=== PATIENT | female | born 2000 | race Caucasian/White ===

== ENCOUNTER → 2024-05-06 | Outpatient (CLI) | payer BC, SELFPAY ==
[2024-05-06 11:09] LABS: Absolute Lymphocyte Count 1.36 X10^3/uL (0.83-4.51); Absolute Neutrophil Count 3.8 X10^3/uL (2.0-7.7); Basophil# 0.05 X10^3/uL; Basophil% 0.9 % (0-1); Eosinophil# 0.05 X10^3/uL; Eosinophils% 0.9 % (0-5); Hematocrit 39.1 % (37-47); Hemoglobin 13.2 g/dL (12.0-15.0); Lymphocyte # 1.36 X10^3/ul (0.83-4.51); Lymphocyte % 23.7 % (19-41); Mean Corp Hgb Conc 33.8 g/dL (32-36); Mean Corpuscular Hgb 29.9 pg (27.0-32.0); Mean Corpuscular Volume 88.7 fL (81-99); Mean Platelet Vol. 9.9 fl (6.2-12.0); Monocyte# 0.51 X10^3/uL; Monocyte% 8.9 % (0-10); NRBC Flagged by Analyzer 0 % (0-5); Neutrophil # 3.75 X10^3/uL (2.7-7.7); Neutrophil % 65.3 % (47-70); Platelet Count 239 K/mm3 (150-450); RBC Distribution Width CV 11.6 % (11.6-14.6); RBC Distribution Width SD 37.7 fl (35.1-43.9); Red Blood Count 4.41 M/mm3 (4.2-5.4); White Blood Count 5.7 K/mm3 (4.4-11.0)
[2024-05-06 12:00] LABS: HIV - WCH Non-Reactive (Nonreactive); Hepatitis B Surface Antigen Non-Reactive (Nonreactive); Hepatitis C Antibody Non-Reactive (Nonreactive); Rubella IgG Reactive (Nonreactive); Syphilis Antibodies Non-reactive
[2024-05-09 21:06] LABS: Chlamydia By Nucleic Acid AMP Negative (Negative); Gonococcus By Nucleic Acid AMP Negative (Negative)
== END | disposition home or self-care (01) ==
PROVIDERS: Referring Provider Registered Nurse; Visit Provider Registered Nurse
DX: O09.90 Supervision of high risk pregnancy, unspecified, unspecified trimester (principal); Z3A.00 Weeks of gestation of pregnancy not specified
CPT/HCPCS: 36415; 85025; 86703; 86762; 86780; 86787; 86803; 86850; 86900; 86901; 87086; 87340; 87491; 87591

== ENCOUNTER → 2024-09-12 | Outpatient (CLI) | payer BC, SELFPAY | END | disposition home or self-care (01) | LOC: LABSPEC 08:21 | PROVIDERS: Visit Provider Physician Assistant Medical | DX: R30.0 Dysuria (principal) | CPT/HCPCS: 87086 ==

== ENCOUNTER → 2024-09-16 | Outpatient (CLI) | payer BC, SELFPAY | END | disposition home or self-care (01) | LOC: LABSPEC 11:51 | PROVIDERS: Referring Provider Obstetrics & Gynecology; Visit Provider Obstetrics & Gynecology | DX: N30.01 Acute cystitis with hematuria (principal) | CPT/HCPCS: 87086 ==

== ENCOUNTER → 2024-09-28 | Outpatient (CLI) | payer BC, SELFPAY ==
[2024-09-28 12:08] LABS: Absolute Lymphocyte Count 1.38 X10^3/uL (0.83-4.51); Absolute Neutrophil Count 5.9 X10^3/uL (2.0-7.7); Basophil# 0.04 X10^3/uL; Basophil% 0.5 % (0-1); Eosinophil# 0.05 X10^3/uL; Eosinophils% 0.6 % (0-5); Hematocrit 36.4 % (37-47); Hemoglobin 12.4 g/dL (12.0-15.0); Lymphocyte # 1.38 X10^3/ul (0.83-4.51); Lymphocyte % 17.4 % (19-41); Mean Corp Hgb Conc 34.1 g/dL (32-36); Mean Corpuscular Hgb 30.8 pg (27.0-32.0); Mean Corpuscular Volume 90.3 fL (81-99); Mean Platelet Vol. 9.7 fl (6.2-12.0); Monocyte# 0.52 X10^3/uL; Monocyte% 6.5 % (0-10); NRBC Flagged by Analyzer 0 % (0-5); Neutrophil # 5.88 X10^3/uL (2.7-7.7); Neutrophil % 74.1 % (47-70); Platelet Count 208 K/mm3 (150-450); RBC Distribution Width CV 11.9 % (11.6-14.6); Red Blood Count 4.03 M/mm3 (4.2-5.4); White Blood Count 7.9 K/mm3 (4.4-11.0)
[2024-09-28 12:49] LABS: Glucose Challenge Gest 1H 50g 86 mg/dL (70-140); HIV Nonreactive (Nonreactive); Syphilis Antibodies Nonreactive (Nonreactive)
== END | disposition home or self-care (01) ==
PROVIDERS: Referring Provider Advanced Practice Midwife; Visit Provider Advanced Practice Midwife
DX: O09.90 Supervision of high risk pregnancy, unspecified, unspecified trimester (principal); Z13.1 Encounter for screening for diabetes mellitus; Z3A.24 24 weeks gestation of pregnancy
CPT/HCPCS: 36415; 82950; 85025; 86703; 86780

== ENCOUNTER 2024-11-01 10:05 | Outpatient (CLI) | payer BC, SELFPAY ==
[2024-11-01 10:19] VITALS: BP 108/73; PULSE 53; RESP 12; TEMP 36.7; O2SAT 100
[2024-11-01 10:58] VITALS: BMI 23.0
--- NOTE | 2024-11-01 19:06 | OB.TRI.HP_ITS ---
HPI - General General Date of Admission: 11/01/24 HPI Narrative GURPREET SERNA, is a 24 y/o @33 weeks 4 days F who presents to L&D with decreased movement. No loss of fluid or vaginal bleeding .She states that since being here she is starting to feel baby move. Maternal Data Information SHAREE Calculator Estimated Delivery Date Method Current WG Current Estimate 12/16/24 LMP (Certain) 33w 4d PFSH PFSH Home Medications ?Medication ?Instructions ?Recorded ?Last Taken ?Type multivit-min no.71-iron fum 28 cap PO 04/29/24 5 History mg-folate no.1 1 mg-dha 300 mg capsule (PNV-Vivian) Allergy/AdvReac Type Severity Reaction Status Date / Time Penicillins Allergy Mild Rash Verified 11/01/24 11:08 Family History Uncle Cancer, Onset Age: 30 Maternal-Liver Grandmother Heart disease, Onset Age: 60 Paternal Grandfather Diabetes, Onset Age: 50 Maternal Social History adopted: No household members: spouse current occupational status: employed 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 current occupational exposures/hazards: No pets and animals: Yes pets and animals: dog(s) history of recent travel: No sexually active: Yes Smoking Status: Never smoker alcohol intake: current alcohol intake frequency: a few times a month details: Not while substance use type: does not use well-balanced diet: about half the time caffeine: Yes Type: coffee Number of servings: 1 eating out: rarely or never during the past year weight has: remained stable what type of physical activity do you participate in: running frequency: daily duration: 30-45 minutes/day sandip/restorationism: Jewish seatbelt use: always do you feel safe at home: Yes additional social history: [facility]- [facility] at [facility] History 1 Elective abortions Hx Para 0 Spontaneous abortions Hx # Term Pregnancies Ectopic pregnancies Hx # Pregnancies Multiple births # of living children Visit Details Expected Delivery Route/Plan Labor Preferences- CB/BF classes: encourage labor support person: Bora labor intervention preferences: [] pain management options preferred: epidural cut cord/dad catch: no : yes PP control planned: discussed discussed possible routes of delivery and associated risks: [] special requests: [] Plans Covid status: [] Flu vaccine: [] Tdap vaccine: [] Rhogam: NA LARC form signed: yes Problem list reviewed and updated with the most current plan of care details and appropriate orders placed. Relevant counseling for the gestational age provided. Continue routine care and follow up unless otherwise noted in visit notes/problem list details OB Flowsheet Initial Weight: 116 lb Date -?-?-?-?-?-?-?-?-?-?-?-?- EGA Weight BP Urine Prot -?-?-?-?-?-?-?-?-?-?-?-?- Glucose FHR FuHt Pres Dilation -?-?-?-?-?-?-?-?-?-?-?-?- Effaced St Visit Note 05/06/24 -?-?-?-?-?-?-?-?-?-?-?-?- 8w 0d 116 lb 6 oz (+6 oz) 132/88 -?-?-?-?-?-?-?-?-?-?-?-?- 171 -?-?-?-?-?-?-?-?-?-?-?-?- LC- 1.67. LC- CRL 1.67 con with LMP. [facility]. LC- CRL 1.[address] [facility] genetic screening today. recommended 1mg folic acid for family hx of cleft lip 06/07/24 -?-?-?-?-?-?-?-?-?-?-?-?- 12w 4d 119 lb 6 oz (+3 lb 6 oz) 122/78 Negative -?-?-?-?-?-?-?-?-?-?-?-?- Negative 175 -?-?-?-?-?-?-?-?-?-?-?-?- JV- no cramping or bleeding c/o constipation. we discussed remedies. anatomy scan ordered with [facility]. 07/07/24 -?-?-?-?-?-?-?-?-?-?-?--?- 16w 6d 126 lb 2 oz (+10 lb 2 oz) 108/72 Negative -?-?-?-?-?-?-?-?-?-?-?-?- Negative 145 -?-?-?-?-?-?-?-?-?-?-?-?- KW- no vb/crampi ng. anatomy US on 07/19. AFP declined. 08/04/24 -?-?-?-?-?-?-?-?-?-?-?-?- 20w 6d 128 lb 2 oz (+12 lb 2 oz) 113/70 Negative -?-?-?-?-?-?-?-?-?-?-?-?- Negative 135 -?-?-?-?-?-?-?-?-?-?-?-?- JV- no complaint s today. 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 08/31/24 -?-?-?-?-?-?-?-?-?-?-?-?- 24w 5d 130 lb 4 oz (+14 lb 4 oz) 109/70 Negative -?-?-?-?-?-?-?-?-?-?-?-?- Negative 135 24 -?-?-?-?-?-?-?-?-?-?-?-?- KW- no vb/lof/ct x. good fm. glucose next visit. has US scheduled. 09/16/24 -?-?-?-?-?-?-?-?-?-?-?-?- 27w 0d 127 lb 8 oz (+11 lb 8 oz) 107/72 Trace -?-?-?-?-?-?-?-?-?-?-?-?- Negative 140 27 -?-?-?-?-?-?-?-?-?-?-?-?- SM- no vb lof go od fm no regualr ctx SM- no vb lof good fm no reg ualr ctx having dysuria urgency frequency little improvement with macrobid and culture negative, repeat testing today 09/28/24 -?-?-?-?-?-?-?-?-?--?-?-?- 28w 5d 128 lb 8 oz (+12 lb 8 oz) 106/70 Negative -?-?-?-?-?-?-?-?-?-?-?-?- Negative 143 28 -?-?-?-?-?-?-?-?-?-?-?-?- MH-No VB. LOF. G ood FM. Reviewed MFM US for duplicate renal system on left. Rpt US 4 wk. 28 wk labs pending. Larc. Undecided on tdap 10/13/24 -?-?-?-?-?-?-?-?-?-?-?-?- 30w 6d 126 lb 2 oz (+10 lb 2 oz) 111/72 Negative -?-?-?-?-?-?-?-?-?-?-?-?- Negative 135 30 -?-?-?-?-?-?-?-?-?-?-?-?- SM- no vb lof go od fm n o regular ctx discussed tdap 10/27/24 -?-?-?-?-?-?-?-?-?-?-?-?- 32w 6d 127 lb 4 oz (+11 lb 4 oz) 115/71 Trace -?-?-?-?-?-?-?-?-?-?-?-?- Negative 135 31 -?-?-?-?-?-?-?-?-?-?-?-?- KW- no vb/lof/ct x. good fm. Has CBE classes scheduled. growth US next week. ROS Constitutional Constitutional: Reports systems reviewed and no addt'l complaints, except as documented Gastrointestinal Gastrointestinal: Denies bloating, constipation, cramping, diarrhea, nausea or vomiting Genitourinary Genitourinary: Reports other Details: Denies vaginal odor, vaginal bleeding, or vaginal discharge ; Denies difficulty urinating or flank pain NST FHR Rate Baby A Baseline: 140 Variability:: Moderate Accelerations:: 15 x 15 Decelerations:: None NST Reactive:: Yes FHR Category:: Category I Assessment & Plan (1) Decreased movement affecting management of mother, antepartum: (2) UTI (urinary tract infection): QUALIFIERS: Urinary tract infection type: acute cystitis Hematuria presence: with hematuria Qualified Code(s): N30.01 - Acute cystitis with hematuria COMMENT: Rpt culture neg (3) Marginal insertion of umbilical cord: (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 Ped urology consult 1mo pp. May need antibiotics if obstructive uropathy occurs. Normal echo (5) Unknown varicella vaccination status: COMMENT: Pt has not had varicella, varicella titer- NON immune (6) Family history of attention deficit hyperactivity disorder (ADHD): COMMENT: Brother (7) Family history of history of [place] de [place] Tourette's syndrome: COMMENT: Both brothers have tourette's (8) Supervision of high-risk : QUALIFIERS: Trimester: third trimester Qualified Code(s): O09.93 - Supervision of high risk , unspecified, third trimester COMMENT: PRR , SHAREE 12/14/24, girl Jailene Bora (9) : QUALIFIERS: Weeks of gestation: 32 weeks Qualified Code(s): Z3A.32 - 32 weeks gestation of COMMENT: elects NIPT with gender, undecided about Carrier testing PLAN: Plan reactive NST patient reassured and is now feeling some movement ok to dc to home. Charges/Coding Multi Select Codes Urinary/Genital Urinary/Genital CPT Codes: 08497-46 non-stress test Interp
== END 2024-11-01 11:10 | disposition home or self-care (01) ==
LOC: WPOUT 10:14 → WP 10:15
PROVIDERS: Referring Provider Obstetrics & Gynecology; Visit Provider Obstetrics & Gynecology
DX: O36.8130 Decreased fetal movements, third trimester, not applicable or unspecified (principal); O43.123 Velamentous insertion of umbilical cord, third trimester; O35.EXX0 Maternal care for other (suspected) fetal abnormality and damage, fetal genitourinary anomalies, not applicable or unspecified; O09.93 Supervision of high risk pregnancy, unspecified, third trimester; Z3A.33 33 weeks gestation of pregnancy
CPT/HCPCS: 59025; 59050; 99212; 99221; G0378; G0463

== ENCOUNTER → 2024-11-21 | Outpatient (CLI) | payer BC, SELFPAY | END | disposition home or self-care (01) | LOC: LABSPEC 11:56 | PROVIDERS: Referring Provider Advanced Practice Midwife; Visit Provider Advanced Practice Midwife | DX: O09.93 Supervision of high risk pregnancy, unspecified, third trimester (principal); Z3A.36 36 weeks gestation of pregnancy | CPT/HCPCS: 87081 ==

== ENCOUNTER 2024-12-02 07:40 | Inpatient (IN) | payer BC, SELFPAY ==
[2024-12-02] VITALS (51 sets, daily range): BP systolic 93–135; BP diastolic 53–82; PULSE 43–123; RESP 16; TEMP 36.7–37.3; O2SAT 81–100; BMI 22.6
--- OUTSIDE RECORDS SUMMARY | 2024-12-02 07:06 | XMS RPT_ITS | CCD ---
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 Melia Elizabeth DO Attending Provider Roselyn Cotto CNM Attending Provider [phone] Nichole Chapin Attending Provider [phone] Padmini Duenas MD Attending Provider [phone] Dr. Padmini Duenas MD Referring Provider [phone] Micheal Ryan Attending Provider [phone] Roselyn Cotto CNM Referring Provider [phone] Dr. Melia Elizabeth DO Attending Provider Care Physician, No Primary Primary Care Provider Unavailable Dr. Meila Elizabeth DO Referring Provider Roselyn Cotto CNM Attending Provider [phone] Dr. Melia Elizabeth DO Other Provider [phone] Care Physician, No Primary Referring Provider Un available LUIS CREWS Attending Unavailable MELIA TOVAR Referring Unavailab le NO PRIMARY CAREMD Primary Care Unavailable MELIA TOVAR Referring Unavailab le MAULIK PELAYO Attending Unavailable NO PRIMARY CARE, Primary Care Unavailable MAULIK PELAYO Attending Unavailable MICHEAL CORTEZ S Referring Unavailable NO PRIMARY CARE, Primary Care Unavailable COREY CORONADO Attending Unavailable MELIA TOVAR Referring Unavailab le NO PRIMARY CARE, Primary Care Unavailable [place] BLACK[place]LL Attending Unavailable MELIA TOVAR Referring Unavailab le NO PRIMARY CARE, Primary Care Unavailable NO PRIMARY CARE, Primary Care Unavailable MICHEAL CORTEZ Attending Unavailable MELIA TOVAR R Referring Unavailab le [place] BL[place] Attending Unavailable NO PRIMARY CARE, Primary Care Unavailable MELIA TOVAR Referring Unavailab le Care Physician, No Primary Primary Care Unava ilable Jelenae Velde, Melia Referring Unavailabl e Vande Velde, Melia Attending Unavailabl e Care Physician, No Primary Primary Care Unava ilable Care Physician, No Primary Referring Unava ilable Padmini Duenas Attending Unavailable Melia Elizabeth Consulting Unavailabl e Care Physician, No Primary Primary Care Unava ilable Juan C Parkinson, Melia Referring Unavailabl e Vande Velde, Melia Attending Unavailabl e Vande Velde, Melia Attending Unavailabl e Care Physician, No Primary Primary Care Unava ilable Care Physician, No Primary Referring Unava ilable Care Physician, No Primary Referring Unava ilable Roselyn Cotto Attending Unavailable Care Physician, No Primary Primary Care Unava ilable Padmini Duenas Attending Unavailable Cass Gee Referring Unavailable Cass Gee Attending Unavailable Nichole Chapin Attending Unavailable Care Physician, No Primary Primary Care Unava ilable Care Physician, No Primary Referring Unava ilable Padmini Duenas Attending Unavailable Padmini Duenas Referring Unavailable Padmini Duenas Attending Unavailable Roselyn Cotto Referring Unavailable Roselyn Cotto Attending Unavailable Cass Gee Attending Unavailable Melia Elizabeth Attending UnavailRoselyn Schneider Attending Unavailable Melia Elizabeth Attending Unavailjeniffer e Liya FOREST RANGER, Micheal Attending Unavailable Roselyn Cotto Attending Unavailable Roselyn Cotto Attending Unavailable Nichole Chapin Attending Unavailable Padmini Duenas Attending Unavailable Care Physician, No Primary Referring Unava ilable Care Physician, No Primary Primary Care Unava ilable Liya FOREST RANGER, Micheal Attending Unavailable Care Physician, No Primary Primary Care Unava ilable Roselyn Cotto Referring Unavailable Roselyn Cotto Attending Unavailable Allergies Allergy Classification Reported Allergen(s) Allergy Type Date of Onset Reaction(s) Facility (3 sources) Penicillins; Translations: [PENICILLINS] 03-24-2017 [facility]) Penicillins Allergy to substance 09-16-2024 Teresita [facility] (1 source) Penicillins Drug allergy (disorder) 11-28-2024 [facility] Repository Medications Current Medications Medication Drug Class(es) Dates Sig (Normalized) Sig (Original) Mv-Mins 88-Ydvb-Tmpje No.1-Dha (Pnv-[place]) 28-1-300 mg capsule (12 sources) Start: 04-29-2024 Mv-Mins 91-Zvay-Vuslv No.1-Dha (Pnv-[place]) 28-1-300 mg capsule Active NMA PO April 29, 2024 1:00am Completed/Discontinued Medications Medication Drug Class(es) Dates Sig (Normalized) Sig (Original) nitrofurantoin, macrocrystals 25 mg / nitrofurantoin, monohydrate 75 mg oral capsule (12 sources) Nitrofuran Antibacterial Start: 09-10-2024 End: 09-15-2024 take 1 capsule by mouth every twelve hours at mealtime Nitrofurantoin Monohyd/M-Cryst (Macrobid) 100 mg capsule Discontinued 100 mg PO Q12H 10 5 0 September 10, 2024 12:00am September 14, 2024 12:00am September 15, 2024 12:10am must administer with a meal/food Problems Active Problems Problem Classification Problem Date Documented Date Episodic/Chronic Cardiac dysrhythmias (20 sources) Palpitations; Translations: [Bradycardia] Onset: 06-26-2021 Episodic 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 Rpt US 4w MFM confirmed MFM: growt h US Q4wk. Ped urology consult 1mo pp. May need antibiotics if obstructive uropathy occurs. Normal echo Genitourinary symptoms and ill-defined conditions (1 source) Dysuria; Translations: [Dysuria] Onset: 09-15-2024 Episodic Other complications of (20 sources) High risk ; Translations: [Supervision of high risk , unspecified, unspecified trimester] 04-29-2024 Episodic Comment on above: , SHAREE 12/14/24, H usband Bora PRR , SHAREE 5, Bora PRR , SHAREE 5, girl Jailene Bora Other complications of (20 sources) Reduced movement; Translations: [Decreased movements, unspecified trimester, not applicable or unspecified] 11-01-2024 Episodic Other complications of (1 source) Maternal care for other known or suspected poor growth, unspecified trimester, not applicable or unspecified; Translations: [Maternal care for other known or suspected poor growth, unspecified trimester, not applicable or unspecified] Onset: 11-28-2024 Episodic Other complications of (2 sources) Supervision of high risk , unspecified, third trimester; Translations: [Supervision of high risk , unspecified, third trimester] Onset: 11-16-2024 Episodic Other complications of (2 sources) Decreased movements, unspecified trimester, not applicable or unspecified; Translations: [Decreased movements, unspecified trimester, not applicable or unspecified] Onset: 11-16-2024 Episodic Other complications of (1 source) Decreased movements, third trimester, not applicable or unspecified; Translations: [Decreased movements, third trimester, not applicable or unspecified] Onset: 11-16-2024 Episodic Other complications of (1 source) Supervision of high risk , unspecified, unspecified trimester; Translations: [Supervision of high risk , unspecified, unspecified trimester] Onset: 10-05-2024 Episodic Other ear and sense organ disorders (4 sources) Bilateral earache; Translations: [Otalgia, bilateral] 02-01-2024 Episodic Other and delivery including normal (20 sources) ; Translations: [Encounter for supervision of normal , unspecified, unspecified trimester] 09-16-2024 Episodic Comment on above: elects NIPT with gen gabriella, undecided about Carrier testing GBS neg, elects NIPT with gender, undecided about Carrier testing Residual codes; unclassified (20 sources) Varicella status; Translations: [Other specified health status] 04-29-2024 Episodic Comment on above: Pt has not had varic barb, varicella titer Pt has not had varic barb, varicella titer-NON immune Residual codes; unclassified (20 sources) Family history of attention deficit hyperactivity disorder; Translations: [Family history of other mental and behavioral disorders] 04-29-2024 Episodic Comment on above: Brother Residual codes; unclassified (20 sources) Family history of mental disorder; Translations: [Family history of other mental and behavioral disorders] 04-29-2024 Episodic Comment on above: Both brothers have t ourette's Residual codes; unclassified (2 sources) Other specified health status; Translations: [Other specified health status] Onset: 11-16-2024 Episodic Residual codes; unclassified (2 sources) Family history of other mental and behavioral disorders; Translations: [Family history of other mental and behavioral disorders] Onset: 11-16-2024 Episodic Residual codes; unclassified (1 source) 36 weeks gestation of ; Translations: [36 weeks gestation of ] Onset: 11-21-2024 Episodic Residual codes; unclassified (1 source) 32 weeks gestation of ; Translations: [32 weeks gestation of ] Onset: 11-16-2024 Episodic Residual codes; unclassified (1 source) 24 weeks gestation of ; Translations: [24 weeks gestation of ] Onset: 08-31-2024 Episodic Short gestation; low weight; and growth retardation (20 sources) growth restriction; Translations: [ growth retardation, unspecified, unspecified [weight]] 11-07-2024 Episodic Comment on above: wkly BPP/MFM and NST . Growth US Q4w wkly BPP/MFM and NST . Growth US [id number] growth/BPP 11/10 wkly BPP/MFM and NST . Growth US [id number] growth/BPP Umbilical cord complication (20 sources) Marginal insertion of umbilical cord 07-20-2024 Episodic Urinary tract infections (20 sources) Urinary tract infectious disease; Translations: [Urinary tract infection, site not specified] Onset: 11-16-2024 09-10-2024 Episodic Comment on above: Rpt culture neg Past or Other Problems Problem Classification Problem Date Documented Da te Episodic/Chronic Residual codes; unclassified (1 source) 16 weeks gestation of ; Translations: [16 weeks gestation of ] Onset: 07-07-2024 Episodic Unclassified (2 sources) Ear pain - The pain has been occurring in a persistent pattern for 2 months (She was seen at Urgent care about 2-3 weeks ago and was told she had infection of both eyes. She was put on azithromycin. The ear pain improved but never resolved.). The course has been constant (not getting better but has noticed if she wears headphones for her work that her ear pain will be worse afterwards). The pain is described as a moderate dull aching. The pain is described as being located in the inner ear and behind the ear (over mastoid). The pain is felt in both ears. The symptoms have been associated with sore throat (intermittent), tinnitus and vertigo (intermittent), while the symptoms have not been associated with chills, decreased hearing, fever, non-purulent discharge from ear, purulent discharge from ear, runny nose or cough. Medical History includes seasonal allergies (Patient is not currently taking any medications for her allergies.), but there is no history of ear infections or recurrent sinusitis. 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 Padmini zelaya MD Age/Sex: 24/F Location[facility] Status: Signed Intake Vital Signs 11/01/24 10:58 11/07/24 13:54 11/21/24 10:10 11/28/24 08:21 Height 5 ft 2 in 5 ft 2 in 5 ft 2 in 5 ft 2 in Weight: 127 lb 6 oz 126 lb 6 oz BMI 23.3 23.1 BP 108/66 126/74 H Intake Visit Reasons: 37wk ob/nst Technology Sales Representative Required: No Is patient in pain?: No Allergies Penicillins Allergy (Mild, Verified 11/28/24 08:22) Rash Medications ???Medication ???Instructions ???Recorded ???Confirmed ???Type multivit-min no.71-iron fum 28 cap PO 04/29/24 11/28/24 History mg-folate no.1 1 mg-dha 300 mg capsule (PNV-[place]) Last Menstrual Period: 03/09/24 Zika: Zika virus screening: Negative : No PFSH 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: No pets and animals: Yes pets and animals: dog(s) history of recent travel: No sexually active: Yes Smoking Status: Never smoker alcohol intake: current alcohol intake frequency: a few times a month details: Not while substance use type: does not use well-balanced diet: about half the time caffeine: Yes Type: coffee Number of servings: 1 eating out: rarely or never during the past year weight has: remained stable what type of physical activity do you participate in: running frequency: daily duration: 30-45 minutes/day sandip/buddhism: Anabaptism seatbelt use: always do you feel safe at home: Yes additional social history: Bora- Johanne.F.O. at [employer] History 1 Elective abortions Hx Para 0 Spontaneous abortions Hx # Term Pregnancies Ectopic pregnancies Hx # Pregnancies Multiple births # of living children HPI 37wk ob/nst Details: GURPREET SERNA is a 24 year old who presents for routine OB visit. OB Visit SHAREE Calculator Estimated Delivery Date Method Current WG Current Estimate 12/16/24 LMP (Certain) 37w 3d Expected Delivery Route/Plan Labor Preferences- CB/BF classes: encourage labor support person: Bora labor intervention preferences: [] pain management options preferred: epidural cut cord/dad catch: no : yes PP control planned: discussed discussed possible routes of delivery and associated risks: [] special requests: [] Specific Issue/Plans Covid status: [] Flu vaccine: [] Tdap vaccine: [] Rhogam: NA LARC form signed: yes Problem list reviewed and updated with the most current plan of care details and appropriate orders placed. Relevant counseling for the gestational age provided. Continue routine care and follow up unless otherwise noted in visit notes/problem list details Initial Weight: 116 lb Date -???-???-???-???-???-??? -???-???-???-???-???-??? - EGA Weight BP Urine Prot -???-???-???-???-???-??? -???-???-???-???-???-??? - Glucose FHR FuHt Pres Dilation -???-???-???-???-???-??? -???-???-???-???-???-??? - Effaced St Visit Note 05/06/24 -???-???-???-???-???-??? -???-???-???-???-???-??? - 8w 0d 116 lb 6 oz (+6 oz) 132/88 -???-???-???-???-???-??? -???-???-???-???-???-??? - 171 -???-???-???-???-???-??? -???-???-???-???-???-??? - LC- 1.67. LC- CRL 1.67 con with LMP. decline s genetic screening today. LC- CRL 1.67 con with LMP. decline s genetic screening today. recommended 1mg folic acid for family hx of cleft lip 06/07/24 -???-???-???-???-???-??? -???-???-???-???-???-??? - 12w 4d 119 lb 6 oz (+3 lb 6 oz) 122/78 Negative -???-???-???-???-???-??? -???-???-???-???-???-??? - Negative 175 -???-???-???-???-???-??? -???-???-???-???-???-??? - JV- no cramp ing or bleeding c/o constipation. we discussed remedies. anatomy scan ordered with mfm. 07/07/24 -???-???-???-???-???-??? -???-???-???-???-???-??? - 16w 6d 126 lb 2 oz (+10 lb 2 oz) 108/72 Negative -???-???-???-???-???-??? -???-???-???-???-???-??? - Negative 145 -???-???-???-???-???-??? -???-???-???-???-???-??? - KW- no vb/cr amping. anatomy US on 07/19. AFP declined. 08/04/24 -???-???-???-???-???-??? -???-???-???-???-???-??? - 20w 6d 128 lb 2 oz (+12 lb 2 oz) 113/70 Negative -???-???-???-???-???-??? -???-???-???-???-???-??? - Negative 135 - (more content not included)... Normal [facility] Rule out Beta Strep (Grp. B) on 11-24-2024 KAYKAY Group B Beta Streptococcus is not isolated. Normal [facility] Comment on above: Performed By: #### M [phone] ####[facility] [id number] [place], [address] Laboratory - Chemistry and C hemistry - challengeOrdered By: Roselyn Cotto on 11-21-2024 Glucose Ql (U) Negative [facility] Laboratory - UrinalysisOrder ed By: Roselyn Cotto on 11-21-2024 Protein Ql (U) Negative [facility] [employer] Office Visit Reporton 11-21-2024 Gang Supervisor [employer] Office Visit Report [facility]'s [address], [address] [place] [address] OFFICE VISIT Date of Service: 11/21/24 MR#: [id number] Acct: [id number] Name: GURPREET SERNA Rep #: [id number] : 2000 Provider: TAMANNA [facility] Age/Sex: 24/F Location: [facility] Status: Signed Intake Vital Signs 09/16/24 09:31 11/01/24 10:58 11/14/24 08:52 11/21/24 10:10 Height 5 ft 3 in 5 ft 2 in 5 ft 2 in 5 ft 2 in Weight: 127 lb 6 oz BMI 23.3 BP 108/66 Intake Visit Reasons: 36wk ob/nst Chief Complaint: 36wk Ob/nst Technology Sales Representative Required: No Is patient in pain?: No Allergies Penicillins Allergy (Mild, Verified 11/21/24 10:12) Rash Medications ???Medication ???Instructions ???Recorded ???Confirmed ???Type multivit-min no.71-iron fum 28 cap PO 04/29/24 11/21/24 History mg-folate no.1 1 mg-dha 300 mg capsule (PNV-[place]) Last Menstrual Period: 03/09/24 : No Have you fallen in the past year?: No PFSH 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: No pets and animals: Yes pets and animals: dog(s) history of recent travel: No sexually active: Yes Smoking Status: Never smoker alcohol intake: current alcohol intake frequency: a few times a month details: Not while substance use type: does not use well-balanced diet: about half the time caffeine: Yes Type: coffee Number of servings: 1 eating out: rarely or never during the past year weight has: remained stable what type of physical activity do you participate in: running frequency: daily duration: 30-45 minutes/day sandip/buddhism: Anabaptism seatbelt use: always do you feel safe at home: Yes additional social history: [employer]- [facility] [employer] [facility] History 1 Elective abortions Hx Para 0 Spontaneous abortions Hx # Term Pregnancies Ectopic pregnancies Hx # Pregnancies Multiple births # of living children HPI 36wk ob/nst Details: GURPREET SERNA is a 24 year old who presents for routine OB visit. OB Visit SHAREE Calculator Estimated Delivery Date Method Current WG Current Estimate 12/16/24 LMP (Certain) 36w 3d Expected Delivery Route/Plan Labor Preferences- CB/BF classes: encourage labor support person: Bora labor intervention preferences: [] pain management options preferred: epidural cut cord/dad catch: no : yes PP control planned: discussed discussed possible routes of delivery and associated risks: [] special requests: [] Specific Issue/Plans Covid status: [] Flu vaccine: [] Tdap vaccine: [] Rhogam: NA LARC form signed: yes Problem list reviewed and updated with the most current plan of care details and appropriate orders placed. Relevant counseling for the gestational age provided. Continue routine care and follow up unless otherwise noted in visit notes/problem list details Initial Weight: 116 lb Date -???-???-???-???-???-??? -???-???-???-???-???-??? - EGA Weight BP Urine Prot -???-???-???-???-???-??? -???-???-???-???-???-??? - Glucose FHR FuHt Pres Dilation -???-???-???-???-???-??? -???-???-???-???-???-??? - Effaced St Visit Note 05/06/24 -???-???-???-???-???-??? -???-???-???-???-???-??? - 8w 0d 116 lb 6 oz (+6 oz) 132/88 -???-???-???-???-???-??? -???-???-???-???-???-??? - 171 -???-???-???-???-???-??? -???-???-???-???-???-??? - LC- 1.67. LC- CRL 1.67 con with LMP. decline s genetic screening today. LC- CRL 1.67 con with LMP. decline s genetic screening today. recommended 1mg folic acid for family hx of cleft lip 06/07/24 -???-???-???-???-???-??? -???-???-???-???-???-??? - 12w 4d 119 lb 6 oz (+3 lb 6 oz) 122/78 Negative -???-???-???-???-???-??? -???-???-???-???-???-??? - Negative 175 -???-???-???-???-???-??? -???-???-???-???-???-??? - JV- no cramp ing or bleeding c/o constipation. we discussed remedies. anatomy scan ordered with mfm. 07/07/24 -???-???-???-???-???-??? -???-???-???-???-???-??? - 16w 6d 126 lb 2 oz (+10 lb 2 oz) 108/72 Negative -???-???-???-???-???-??? -???-???-???-???-???-??? - Negative 145 -???-???-???-???-???-??? -???-???-???-???-???-??? - KW- no vb/cr amping. anatomy US on 07/19. AFP declined. 08/04/24 -???-???-???-???-???-??? -???-???-???-???-???-??? - 20w 6d 128 lb 2 oz (+12 lb 2 oz) 113/70 Negative -???-???-???-???-???-??? -???-???-???-???-???-??? - Negative 135 -???-???- (more content not included)... Normal [facility] Screening beta-hemolytic Str eptococcus cultureOrdered By: Roselyn Cotto on 11-21-2024 Beta-hemolytic Streptococcus culture Group B Beta Streptococcus is not isolated. [facility] Laboratory - Chemistry and C hemistry - challengeOrdered By: Melia Parkinson on 11-14-2024 Glucose Ql (U) Negative [facility] Laboratory - UrinalysisOrder ed By: Melia Parkinson on 11-14-2024 Protein Ql (U) Trace [facility] [employer] Office Visit Reporton 11-14-2024 Gang Supervisor [employer] Office Visit Report [address], [address] [place] [address] OFFICE VISIT Date of Service: 11/14/24 MR#: [id number] Acct: [id number] Name: GURPREET SERNA Rep #: [id number] : 2000 Provider: Dr. Melia Morales DO Age/Sex: 24/F Location: [facility] Status: Signed Intake Vital Signs 11/01/24 10:58 11/07/24 13:54 11/14/24 08:52 Height 5 ft 2 in 5 ft 2 in 5 ft 2 in Weight: 126 lb 127 lb 2 oz 5 lb 2 oz BMI 23.0 23.2 0.9 BP 110/68 113/72 Intake Visit Reasons: 35wk nst only Technology Sales Representative Required: No Is patient in pain?: No Allergies Penicillins Allergy (Mild, Verified 11/14/24 09:03) Rash Medications ???Medication ???Instructions ???Recorded ???Confirmed ???Type multivit-min no.71-iron fum 28 cap PO 04/29/24 11/14/24 History mg-folate no.1 1 mg-dha 300 mg capsule (PNV-[place]) Last Menstrual Period: 03/09/24 Current gender identity: female Zika: Zika virus screening: Negative : No PFSH 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: No pets and animals: Yes pets and animals: dog(s) history of recent travel: No sexually active: Yes current gender identity: female Smoking Status: Never smoker alcohol intake: current alcohol intake frequency: a few times a month details: Not while substance use type: does not use well-balanced diet: about half the time caffeine: Yes Type: coffee Number of servings: 1 eating out: rarely or never during the past year weight has: remained stable what type of physical activity do you participate in: running frequency: daily duration: 30-45 minutes/day sandip/buddhism: Anabaptism seatbelt use: always do you feel safe at home: Yes additional social history: [place]ora- Johanne.Chito.Amanda. at [employer] History 1 Elective abortions Hx Para 0 Spontaneous abortions Hx # Term Pregnancies Ectopic pregnancies Hx # Pregnancies Multiple births # of living children HPI 35wk nst only Details: GURPREET SERNA is a 24 year old who presents for routine OB visit. OB Visit SHAREE Calculator Estimated Delivery Date Method Current WG Current Estimate 12/16/24 LMP (Certain) 35w 3d Expected Delivery Route/Plan Labor Preferences- CB/BF classes: encourage labor support person: Bora labor intervention preferences: [] pain management options preferred: epidural cut cord/dad catch: no : yes PP control planned: discussed discussed possible routes of delivery and associated risks: [] special requests: [] Specific Issue/Plans Covid status: [] Flu vaccine: [] Tdap vaccine: [] Rhogam: NA LARC form signed: yes Problem list reviewed and updated with the most current plan of care details and appropriate orders placed. Relevant counseling for the gestational age provided. Continue routine care and follow up unless otherwise noted in visit notes/problem list details Initial Weight: 116 lb Date -???-???-???-???-???-??? -???-???-???-???-???-??? - EGA Weight BP Urine Prot -???-???-???-???-???-??? -???-???-???-???-???-??? - Glucose FHR FuHt Pres Dilation -???-???-???-???-???-??? -???-???-???-???-???-??? - Effaced St Visit Note 05/06/24 -???-???-???-???-???-??? -???-???-???-???-???-??? - 8w 0d 116 lb 6 oz (+6 oz) 132/88 -???-???-???-???-???-??? -???-???-???-???-???-??? - 171 -???-???-???-???-???-??? -???-???-???-???-???-??? - LC- 1.67. LC- CRL 1.67 con with LMP. decline s genetic screening today. LC- CRL 1.67 con with LMP. decline s genetic screening today. recommended 1mg folic acid for family hx of cleft lip 06/07/24 -???-???-???-???-???-??? -???-???-???-???-???-??? - 12w 4d 119 lb 6 oz (+3 lb 6 oz) 122/78 Negative -???-???-???-???-???-??? -???-???-???-???-???-??? - Negative 175 -???-???-???-???-???-??? -???-???-???-???-???-??? - JV- no cramp ing or bleeding c/o constipation. we discussed remedies. anatomy scan ordered with [facility]. 07/07/24 -???-???-???-???-???-??? -???-???-???-???-???-??? - 16w 6d 126 lb 2 oz (+10 lb 2 oz) 108/72 Negative -???-???-???-???-???-??? -???-???-???-???-???-??? - Negative 145 -???-???-???-???-???-??? -???-???-???-???-???-??? - - no vb/cr amping. anatomy US on 07/19. AFP declined. 08/04/24 -???-???-???-???-???-??? -???-???-???-???-???-??? - 20w 6d 128 lb 2 oz (+12 lb 2 oz) 113/70 Negative -???-???-??? (more content not included)... Normal [facility] - Chemistry and C hemistry - challengeOrdered By: Micheal Cortez on 11-07-2024 Glucose Ql (U) Negative [facility] - UrinalysisOrder ed By: Micheal Cortez on 11-07-2024 Protein Ql (U) Negative [facility] [employer] Office Visit Reporton 11-07-2024 [employer] Office Visit Report [facility] [address], [address] [place] [address] OFFICE VISIT Date of Service: 11/07/24 MR#: [id number] Acct: [id number] Name: GURPREET SERNA Rep #: [id number] : 2000 Provider: MIRA marie Age/Sex: 24/F Location: [facility] Status: Signed Intake Vital Signs 09/16/24 09:31 11/01/24 10:58 11/07/24 13:54 Height 5 ft 3 in 5 ft 2 in 5 ft 2 in Weight: 127 lb 2 oz BMI 23.2 BP 110/68 Intake Visit Reasons: 34wk ob/nst Chief Complaint: 34 Week OB/NST Technology Sales Representative Required: No Is patient in pain?: No Allergies Penicillins Allergy (Mild, Verified 11/07/24 13:57) Rash Medications ???Medication ???Instructions ???Recorded ???Confirmed ???Type multivit-min no.71-iron fum 28 cap PO 04/29/24 11/07/24 History mg-folate no.1 1 mg-dha 300 mg capsule (PNV-[place]) Last Menstrual Period: 03/09/24 Zika: Zika virus screening: Negative : No PFSH 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: No pets and animals: Yes pets and animals: dog(s) history of recent travel: No sexually active: Yes Smoking Status: Never smoker alcohol intake: current alcohol intake frequency: a few times a month details: Not while substance use type: does not use well-balanced diet: about half the time caffeine: Yes Type: coffee Number of servings: 1 eating out: rarely or never during the past year weight has: remained stable what type of physical activity do you participate in: running frequency: daily duration: 30-45 minutes/day sandip/buddhism: Anabaptism seatbelt use: always do you feel safe at home: Yes additional social history: [place]ora- C.F.O. at [employer] History 1 Elective abortions Hx Para 0 Spontaneous abortions Hx # Term Pregnancies Ectopic pregnancies Hx # Pregnancies Multiple births # of living children HPI 34wk ob/nst Details: GURPREET SERNA is a 24 year old who presents for routine OB visit. OB Visit SHAREE Calculator Estimated Delivery Date Method Current WG Current Estimate 12/16/24 LMP (Certain) 34w 3d Expected Delivery Route/Plan Labor Preferences- CB/BF classes: encourage labor support person: Bora labor intervention preferences: [] pain management options preferred: epidural cut cord/dad catch: no : yes PP control planned: discussed discussed possible routes of delivery and associated risks: [] special requests: [] Specific Issue/Plans Covid status: [] Flu vaccine: [] Tdap vaccine: [] Rhogam: NA LARC form signed: yes Problem list reviewed and updated with the most current plan of care details and appropriate orders placed. Relevant counseling for the gestational age provided. Continue routine care and follow up unless otherwise noted in visit notes/problem list details Initial Weight: 116 lb Date -???-???-???-???-???-??? -???-???-???-???-???-??? - EGA Weight BP Urine Prot -???-???-???-???-???-??? -???-???-???-???-???-??? - Glucose FHR FuHt Pres Dilation -???-???-???-???-???-??? -???-???-???-???-???-??? - Effaced St Visit Note 05/06/24 -???-???-???-???-???-??? -???-???-???-???-???-??? - 8w 0d 116 lb 6 oz (+6 oz) 132/88 -???-???-???-???-???-??? -???-???-???-???-???-??? - 171 -???-???-???-???-???-??? -???-???-???-???-???-??? - LC- 1.67. LC- CRL 1.67 con with LMP. decline s genetic screening today. LC- CRL 1.67 con with LMP. decline s genetic screening today. recommended 1mg folic acid for family hx of cleft lip 06/07/24 -???-???-???-???-???-??? -???-???-???-???-???-??? - 12w 4d 119 lb 6 oz (+3 lb 6 oz) 122/78 Negative -???-???-???-???-???-??? -???-???-???-???-???-??? - Negative 175 -???-???-???-???-???-??? -???-???-???-???-???-??? - JV- no cramp ing or bleeding c/o constipation. we discussed remedies. anatomy scan ordered with mfm. 07/07/24 -???-???-???-???-???-??? -???-???-???-???-???-??? - 16w 6d 126 lb 2 oz (+10 lb 2 oz) 108/72 Negative -???-???-???-???-???-??? -???-???-???-???-???-??? - Negative 145 -???-???-???-???-???-??? -???-???-???-???-???-??? - KW- no vb/cr amping. anatomy US on 07/19. AFP declined. 08/04/24 -???-???-???-???-???-??? -???-???-???-???-???-??? - 20w 6d 128 lb 2 oz (+12 lb 2 oz) 113/70 Negative -???-???-???-???-???-??? -???-???-???-???-???-??? - Negative 135 -???-???-???-???-???- (more content not included)... Normal [facility] OB Triage Physician Noteon 0 11-01-2024 OB Triage Physician Note [facility] Medical Records Department [address] [place] [address] OB Triage Physician Note 11/01/24 1906 MR#: [id number] Acct: [id number] Name: GURPREET SERNA Rep #: [id number] : 2000 24 From: Melia Elizabeth DO PCP: Care Physician,No Primary Status:ROLAND Luque Location: [facility] HPI - General General Date of Admission: 11/01/24 HPI Narrative GURPREET SERNA, is a 24 y/o @33 weeks 4 days F who presents to [facility] with decreased movement. No loss of fluid or vaginal bleeding .She states that since being here she is starting to feel baby move. Maternal Data Information SHAREE Calculator Estimated Delivery Date Method Current WG Current Estimate 12/16/24 LMP (Certain) 33w 4d PFSH PFSH Home Medications ???Medication ???Instructions ???Recorded ???Last Taken ???Type multivit-min no.71-iron fum 28 cap PO 04/29/24 11/01/24 History mg-folate no.1 1 mg-dha 300 mg capsule (PNV-[place]) Allergy/AdvReac Type Severity Reaction Status Date / Time Penicillins Allergy Mild Rash Verified 11/01/24 11:08 Family History Uncle Cancer, Onset Age: 30 Maternal-Liver Grandmother Heart disease, Onset Age: 60 Paternal Grandfather Diabetes, Onset Age: 50 Maternal Social History adopted: No household members: spouse 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 occupational 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/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: No pets and animals: Yes pets and animals: dog(s) history of recent travel: No sexually active: Yes Smoking Status: Never smoker alcohol intake: current alcohol intake frequency: a few times a month details: Not while substance use type: does not use well-balanced diet: about half the time caffeine: Yes Type: coffee Number of servings: 1 eating out: rarely or never during the past year weight has: remained stable what type of physical activity do you participate in: running frequency: daily duration: 30-45 minutes/day sandip/buddhism: Anabaptism seatbelt use: always do you feel safe at home: Yes additional social history: [employer] at [employer] History 1 Elective abortions Hx Para 0 Spontaneous abortions Hx # Term Pregnancies Ectopic pregnancies Hx # Pregnancies Multiple births # of living children Visit Details Expected Delivery Route/Plan Labor Preferences- CB/BF classes: encourage labor support person: Bora labor intervention preferences: [] pain management options preferred: epidural cut cord/dad catch: no : yes PP control planned: discussed discussed possible routes of delivery and associated risks: [] special requests: [] Plans Covid status: [] Flu vaccine: [] Tdap vaccine: [] Rhogam: NA LARC form signed: yes Problem list reviewed and updated with the most current plan of care details and appropriate orders placed. Relevant counseling for the gestational age provided. Continue routine care and follow up unless otherwise noted in visit notes/problem list details OB Flowsheet Initial Weight: 116 lb Date -???-???-???-???-???-??? -???-???-???-???-???-??? - EGA Weight BP Urine Prot -???-???-???-???-???-??? -???-???-???-???-???-??? - Glucose FHR FuHt Pres Dilation -???-???-???-???-???-??? -???-???-???-???-???-??? - Effaced St Visit Note 05/06/24 -???-???-???-???-???-??? -???-???-???-???-???-??? - 8w 0d 116 lb 6 oz (+6 oz) 132/88 -???-???-???-???-???-??? -???-???-???-???-???-??? - 171 -???-???-???-???-???-??? -???-???-???-???-???-??? - LC- 1.67. LC- CRL 1.67 con with LMP. decline s genetic screening today. LC- CRL 1.67 con with LMP. decline s genetic screening today. recommended 1mg folic acid for family hx of cleft lip 06/07/24 -???-???-???-???-???-??? -???-???-???-???-???-??? - 12w 4d 119 lb 6 oz (+3 lb 6 oz) 122/78 Negative -???-???-???-???-???-??? -???-???-???-???-???-??? - Negative 175 -???-???-???-???-???-??? -???-???-???-???-???-??? - JV- no cramp ing or bleeding c/o constipation. we discussed remedies. anatomy scan ordered with mfm. 07/07/24 -???-???-???-???-???-??? -???-???-???-???-???-??? - 16w 6d 126 lb 2 oz (+10 lb 2 oz) 108/72 Negative -???-???-???-???-???-??? -???-???-???-???-???-??? - Negative 145 -???-???-???-???-???-??? -???-???-???-???-???-??? - KW- no vb/cr amping. anatomy US on 07/19. AFP declined. 08/04/24 -???-???-???-???-???-??? -???-???-???-???-???-??? - 20w 6d 128 lb 2 oz (+12 lb 2 oz) 113/70 Negative -???-???-???-???-???-??? -???-???-???-???-???-??? - Negative 135 -???-???-???-???-???-??? -???-???-???-???-???-??? - JV- no compl aints today. 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 08/31/24 (more content not included)... Normal [facility] - Chemistry and C hemistry - challengeOrdered By: Roselyn Cotto on 10-27-2024 Glucose Ql (U) Negative [facility] - UrinalysisOrder ed By: Roselyn Cotto on 10-27-2024 Protein Ql (U) Trace [facility] [employer] Office Visit Reporton 10-27-2024 Gang Super[employer] Office Visit Report [facility] [address], [address] [place] [address] OFFICE VISIT Date of Service: 10/27/24 MR#: [id number] Acct: [id number] Name: GURPREET SERNA Rep #: [id number] : 2000 Provider: TAMANNA Jj ams Age/Sex: 24/F Location: [facility] Status: Signed Intake Vital Signs 08/04/24 08:46 10/13/24 09:46 10/27/24 09:02 10/27/24 09:06 Height 5 ft 3 in 5 ft 3 in 5 ft 3 in 5 ft 3 in Weight: 127 lb 4 oz BMI 22.5 BP 115/71 Intake Visit Reasons: 32wk ob Technology Sales Representative Required: No Is patient in pain?: No Allergies Penicillins Allergy (Mild, Verified 10/27/24 09:02) Rash Medications ???Medication ???Instructions ???Recorded ???Confirmed ???Type multivit-min no.71-iron fum 28 cap PO 04/29/24 10/27/24 History mg-folate no.1 1 mg-dha 300 mg capsule (PNV-[place]) Last Menstrual Period: 03/09/24 Zika: Zika virus screening: Negative : No PFSH 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: No pets and animals: Yes pets and animals: dog(s) history of recent travel: No sexually active: Yes Smoking Status: Never smoker alcohol intake: current alcohol intake frequency: a few times a month details: Not while substance use type: does not use well-balanced diet: about half the time caffeine: Yes Type: coffee Number of servings: 1 eating out: rarely or never during the past year weight has: remained stable what type of physical activity do you participate in: running frequency: daily duration: 30-45 minutes/day sandip/buddhism: Anabaptism seatbelt use: always do you feel safe at home: Yes additional social history: [place]- Johanne[facility]F.[facility]. [facility] [employer] [facility] History 1 Elective abortions Hx Para 0 Spontaneous abortions Hx # Term Pregnancies Ectopic pregnancies Hx # Pregnancies Multiple births # of living children HPI 32wk ob Details: GURPREET SERNA is a 24 year old who presents for routine OB visit. OB Visit SHAREE Calculator Estimated Delivery Date Method Current WG Current Estimate 12/16/24 LMP (Certain) 32w 6d Expected Delivery Route/Plan Labor Preferences- CB/BF classes: encourage labor support person: Bora labor intervention preferences: [] pain management options preferred: epidural cut cord/dad catch: no : yes PP control planned: discussed discussed possible routes of delivery and associated risks: [] special requests: [] Specific Issue/Plans Covid status: [] Flu vaccine: [] Tdap vaccine: [] Rhogam: NA LARC form signed: yes Problem list reviewed and updated with the most current plan of care details and appropriate orders placed. Relevant counseling for the gestational age provided. Continue routine care and follow up unless otherwise noted in visit notes/problem list details Initial Weight: 116 lb Date -???-???-???-???-???-??? -???-???-???-???-???-??? - EGA Weight BP Urine Prot -???-???-???-???-???-??? -???-???-???-???-???-??? - Glucose FHR FuHt Pres Dilation -???-???-???-???-???-??? -???-???-???-???-???-??? - Effaced St Visit Note 05/06/24 -???-???-???-???-???-??? -???-???-???-???-???-??? - 8w 0d 116 lb 6 oz (+6 oz) 132/88 -???-???-???-???-???-??? -???-???-???-???-???-??? - 171 -???-???-???-???-???-??? -???-???-???-???-???-??? - LC- 1.67. LC- CRL 1.67 con with LMP. decline s genetic screening today. LC- CRL 1.67 con with LMP. decline s genetic screening today. recommended 1mg folic acid for family hx of cleft lip 06/07/24 -???-???-???-???-???-??? -???-???-???-???-???-??? - 12w 4d 119 lb 6 oz (+3 lb 6 oz) 122/78 Negative -???-???-???-???-???-??? -???-???-???-???-???-??? - Negative 175 -???-???-???-???-???-??? -???-???-???-???-???-??? - JV- no cramp ing or bleeding c/o constipation. we discussed remedies. anatomy scan ordered with mfm. 07/07/24 -???-???-???-???-???-??? -???-???-???-???-???-??? - 16w 6d 126 lb 2 oz (+10 lb 2 oz) 108/72 Negative -???-???-???-???-???-??? -???-???-???-???-???-??? - Negative 145 -???-???-???-???-???-??? -???-???-???-???-???-??? - KW- no vb/cr amping. anatomy US on 07/19. AFP declined. 08/04/24 -???-???-???-???-???-??? -???-???-???-???-???-??? - 20w 6d 128 lb 2 oz (+12 lb 2 oz) 113/70 Negative -???-???-???-???-???-??? -???-???-???-???-???-??? - Negative 135 -???-???-???-???-???-??? -???-???-???-???-?? (more content not included)... Normal [facility] - Chemistry and C hemistry - challengeOrdered By: Padmini Duenas on 10-13-2024 Glucose Ql (U) Negative [facility] - UrinalysisOrder ed By: Padmini Duenas on 10-13-2024 Protein Ql (U) Negative [facility] Gang [employer] Office Visit Reporton 10-13-2024 Gang Supervisor [employer] Office Visit Report [facility] [address] [place] [address], [address] [place] [address] OFFICE VISIT Date of Service: 10/13/24 MR#: [id number] Acct: [id number] Name: GURPREET SERNA Rep #: [id number] : 2000 Provider: Dr. Padmini zelaya MD Age/Sex: 24/F Location: [facility] Status: Signed Intake Vital Signs 08/04/24 08:46 09/28/24 11:19 10/13/24 09:43 10/13/24 09:46 Height 5 ft 3 in 5 ft 3 in 5 ft 3 in 5 ft 3 in Weight: 128 lb 8 oz 126 lb 2 oz BMI 22.7 22.3 BP 106/70 111/72 Intake Visit Reasons: 30wk ob Technology Sales Representative Required: No Is patient in pain?: No Feel stressed/tense/nervous/a nxious/difficulty sleeping: not at all Allergies Penicillins Allergy (Mild, Verified 10/13/24 09:43) Rash Medications ???Medication ???Instructions ???Recorded ???Confirmed ???Type multivit-min no.71-iron fum 28 cap PO 04/29/24 10/13/24 History mg-folate no.1 1 mg-dha 300 mg capsule (PNV-[place]) Last Menstrual Period: 03/09/24 Zika: Zika virus screening: Negative : No PFSH 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: No pets and animals: Yes pets and animals: dog(s) history of recent travel: No sexually active: Yes Smoking Status: Never smoker alcohol intake: current alcohol intake frequency: a few times a month details: Not while substance use type: does not use well-balanced diet: about half the time caffeine: Yes Type: coffee Number of servings: 1 eating out: rarely or never during the past year weight has: remained stable what type of physical activity do you participate in: running frequency: daily duration: 30-45 minutes/day sandip/buddhism: Anabaptism seatbelt use: always do you feel safe at home: Yes additional social history: [place]- Johanne.[employer]ela. at [employer] History 1 Elective abortions Hx Para 0 Spontaneous abortions Hx # Term Pregnancies Ectopic pregnancies Hx # Pregnancies Multiple births # of living children HPI 30wk ob Details: GURPREET SERNA is a 24 year old who presents for routine OB visit. OB Visit SHAREE Calculator Estimated Delivery Date Method Current WG Current Estimate 12/16/24 LMP (Certain) 30w 6d Expected Delivery Route/Plan Labor Preferences- CB/BF classes: encourage labor support person: Bora labor intervention preferences: [] pain management options preferred: epidural cut cord/dad catch: no : yes PP control planned: discussed discussed possible routes of delivery and associated risks: [] special requests: [] Specific Issue/Plans Covid status: [] Flu vaccine: [] Tdap vaccine: [] Rhogam: NA LARC form signed: yes Problem list reviewed and updated with the most current plan of care details and appropriate orders placed. Relevant counseling for the gestational age provided. Continue routine care and follow up unless otherwise noted in visit notes/problem list details Initial Weight: 116 lb Date -???-???-???-???-???-??? -???-???-???-???-???-??? - EGA Weight BP Urine Prot -???-???-???-???-???-??? -???-???-???-???-???-??? - Glucose FHR FuHt Pres Dilation -???-???-???-???-???-??? -???-???-???-???-???-??? - Effaced St Visit Note 05/06/24 -???-???-???-???-???-??? -???-???-???-???-???-??? - 8w 0d 116 lb 6 oz (+6 oz) 132/88 -???-???-???-???-???-??? -???-???-???-???-???-??? - 171 -???-???-???-???-???-??? -???-???-???-???-???-??? - LC- 1.67. LC- CRL 1.67 con with LMP. decline s genetic screening today. LC- CRL 1.67 con with LMP. decline s genetic screening today. recommended 1mg folic acid for family hx of cleft lip 06/07/24 -???-???-???-???-???-??? -???-???-???-???-???-??? - 12w 4d 119 lb 6 oz (+3 lb 6 oz) 122/78 Negative -???-???-???-???-???-??? -???-???-???-???-???-??? - Negative 175 -???-???-???-???-???-??? -???-???-???-???-???-??? - JV- no cramp ing or bleeding c/o constipation. we discussed remedies. anatomy scan ordered with [facility]. 07/07/24 -???-???-???-???-???-??? -???-???-???-???-???-??? - 16w 6d 126 lb 2 oz (+10 lb 2 oz) 108/72 Negative -???-???-???-???-???-??? -???-???-???-???-???-??? - Negative 145 -???-???-???-???-???-??? -???-???-???-???-???-??? - KW- no vb/cr amping. anatomy US on 07/19. AFP declined. 08/04/24 -???-???-???-???-???-??? -???-???-???-???-???-??? - 20w 6d 128 lb 2 oz (+12 lb 2 oz) 113/70 Negative -???-??? (more content not included)... 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 Overall the patient is doing well without physical complaints. Obstetrical History OB History Para Term AB Living 1 SAB IAB Ectopic Multiple Live Births # Outcome Date GA Lbr Uday/2nd Weight Sex Type Anes PTL Lv 1 Current NIPT declined No significant Surgical history Medical history Social history Medication prescriptions Family History [employer] History Review of Systems - negative unless otherwise specified above Physical Examination: General appearance - alert, well appearing, and in no distress Mental status - alert, oriented to person, place, and time Chest - No difficulty with breathing Heart - Normal Rate Abdomen - Non tender during US exam Pelvic - Deferred Extremities - no edema noted Please see US report for further detail 1. Single, living IUP at 29w 6d by clinical SHAREE. 2. Amniotic fluid volume appeared normal, 17.2 cm. 3. Placenta is posterior, grade 1. 4. Visualized anatomy appears normal, with limitations as noted above. 5. Echo normal, see below. 6. 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 The left kidney is enlarged with overall normal echotexture. No obstructive uropathy noted. No ureterocele. No hydroureter. No dilated renal pelvis. 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 There is normal sinus rhythm with no evidence of significant arrhythmia. There is no evidence of significant pericardial effusion. The right atrium is of normal size with normal entry of the inferior vena cava and superior vena cava. The left atrium is of normal size and at least two pulmonary veins are noted to enter the left atrium. The foramen ovale is patent with right to left flow. The tricuspid and mitral valves appear normal. The right and left ventricles are of normal size with normal wall thickness and systolic function for the gestational age. The great arteries are properly related to the ventricles. The aortic valve and aortic arch appear normal. The pulmonary valve, ductus arteriosus and ductal arch appear normal. The three vessel trachea view appears normal. The umbilical artery, vein and ductus venosus appear normal. Pulsed Doppler waveforms and Doppler color flow velocity mapping were normal. echocardiography cannot exclude all abnormalities and may miss small ventricular septal defects, semilunar valve stenosis, coarctation of the aorta and other subtle defects. The patient stated understanding of the findings and limitations of echocardiography. Today we discussed above ultrasound findings including the normal echo and the referral for suspected renal duplication. We first described the typical anatomy of the kidneys, ureters, bladder and the relative locations. We then described urine formation and flow as well as amniotic fluid. Renal duplication of the left kidney is suspected due to the enlargement as well as the suspected superior renal pelvis present. However there is no obstructive uropathy. Renal duplication is most common urinary tract abnormality. Typically meaning 2 renal pelvises and the possibility of 1 or 2 ureters. Ureters can combine before the bladder and insert into the bladder is 1 ureter. Or both ureters can implant into the bladder often 1 being normal and the other creating a ureterocele. We discussed the possible increased risk of urinary tract infections. For fetuses that are female there is a 50% risk of gynecologic abnormalities. We will continue with growth every 4 weeks. antibiotics typically not indicated however renal ultrasound and evaluation with urology should be completed within 1 month for delivery. All questions and concerns were addressed. Recommendations: 1. Growth every 4 weeks. 2. Pediatric urology follow-up within 1 month of delivery. 3. Consider antibiotics if obstructive uropathy occurs. 4. Follow-up as clinically indicated. My final recommendations will be communicated back to the requesting physician by way of shared medical record or fax. Maulik Pelayo MD Normal [facility] Absolute lymphocyte countOrd ered By: Roselyn Cotto on 09-28-2024 Lymphocytes Auto (Unsp spec) [#/Vol] 1.38 10*3/uL 0.83-4.51 [facility] Absolute neutrophil countOrd ered By: Roselyn Cotto on 09-28-2024 Neutrophils (Bld) [#/Vol] 5.9 10*3/uL 2.0-7.7 [facility] Automated lymphocyte count a s percentage of total leukocytesOrdered By: Roselyn Yadiel on 09-28-2024 Lymphocytes/100 WBC Auto (Unsp spec) 17.4 % Low 19-41 [facility] Basophil percentageOrdered B y: Roselyn Cotto on 09-28-2024 Basophils/100 WBC (Bld) 0.5 % 0-1 [facility] CBC W/Diff, Automatedon 09-15 Absolute Lymph 1.38 X10 3/uL Normal 0.83-4.51 [facility] Comment on above: Performed By: #### L 100.0100, L501.0250, L3890.6006, L509.8002 ####[facility] [address] [place], [address] Absolute Neut 5.9 X10 3/uL Normal 2.0-7.7 [facility] Comment on above: Performed By: #### L 100.0100, L501.0250, L3890.6006, L509.8002 ####[facility] [address] [place], [address] Basophils/100 WBC (Bld) 0.5 % Normal 0-1 [facility] Comment on above: Performed By: #### L 100.0100, L501.0250, L3890.6006, L509.8002 ####[facility] [address] [place], [address] Eosinophils/100 WBC (Bld) 0.6 % Normal 0-5 [facility] Comment on above: Performed By: #### L 100.0100, L501.0250, L3890.6006, L509.8002 ####[facility] [address] [place], [address] Erythrocyte distribution width (RBC) [Ratio] 11.9 % Normal 11.6-14.6 [facility] Comment on above: Performed By: #### L 100.0100, L501.0250, L3890.6006, L509.8002 ####[facility] [address] [place], [address] Hematocrit (Bld) [Volume fraction] 36.4 % Low 37-47 [facility] Comment on above: Performed By: #### L 100.0100, L501.0250, L3890.6006, L509.8002 ####[facility] [address] [place], [address] Hemoglobin (Bld) [Mass/Vol] 12.4 g/dL Normal 12.0-15.0 [facility] Comment on above: Performed By: #### L 100.0100, L501.0250, L3890.6006, L509.8002 ####[facility] [address] [place], [address] IG% 0.900 Normal 0.0-0.9 [facility] Comment on above: Result Comment: IG% - Immature Granulocytes (promyelocytes, myelocytes and metamyelocytes) > 1% indicates that a LEFT SHIFT is Present. Performed By: #### L 100.0100, L501.0250, L3890.6006, L509.8002 ####[facility] [address] [place], [address] Lymphocytes/100 WBC (Bld) 17.4 % Low 19-41 [facility] Comment on above: Performed By: #### L 100.0100, L501.0250, L3890.6006, L509.8002 ####[facility] [address] [place], [address] MCH (RBC) [Entitic mass] 30.8 pg Normal 27.0-32.0 [facility] Comment on above: Performed By: #### L 100.0100, L501.0250, L3890.6006, L509.8002 ####[facility] [address] [place], [address] MCHC (RBC) [Mass/Vol] 34.1 g/dL Normal 32-36 [facility] Comment on above: Performed By: #### L 100.0100, L501.0250, L3890.6006, L509.8002 ####[facility] [address] [place], [address] MCV (RBC) [Entitic vol] 90.3 fL Normal 81-99 [facility] Comment on above: Performed By: #### L 100.0100, L501.0250, L3890.6006, L509.8002 ####[facility] [address] [place], [address] Monocytes/100 WBC (Bld) 6.5 % Normal 0-10 [facility] Comment on above: Performed By: #### L 100.0100, L501.0250, L3890.6006, L509.8002 ####[facility] [address] [place], [address] Neutrophils/100 WBC (Bld) 74.1 % High 47-70 [facility] Comment on above: Performed By: #### L 100.0100, L501.0250, L3890.6006, L509.8002 ####[facility] [address] [place], [address] Nucleated RBC (Bld) [#/Vol] 0 10*3/uL Normal 0-5 [facility] Comment on above: Performed By: #### L 100.0100, L501.0250, L3890.6006, L509.8002 ####[facility] [address] [place], [address] Platelet mean volume (Bld) [Entitic vol] 9.7 fL Normal 6.2-12.0 [facility] Comment on above: Performed By: #### L 100.0100, L501.0250, L3890.6006, L509.8002 ####[facility] [address] [place], [address] Platelets (Bld) [#/Vol] 208 10*3/uL Normal 150-450 [facility] Comment on above: Performed By: #### L 100.0100, L501.0250, L3890.6006, L509.8002 ####[facility] [address] [place], [address] RBC (Bld) [#/Vol] 4.03 10*6/uL Low 4.2-5.4 [facility] Comment on above: Performed By: #### L 100.0100, L501.0250, L3890.6006, L509.8002 ####[facility] [address] [place], [address] RDW SD 39.0 fl Normal 35.1-43.9 [facility] Comment on above: Performed By: #### L 100.0100, L501.0250, L3890.6006, L509.8002 ####[facility] [address] [place], [address] WBC (Bld) [#/Vol] 7.9 10*3/uL Normal 4.4-11.0 [facility] Comment on above: Performed By: #### L 100.0100, L501.0250, L3890.6006, L509.8002 ####[facility] [address] [place], [address] Eosinophil percentageOrdered By: Roselyn Cotto on 09-28-2024 Eosinophils/100 WBC (Bld) 0.6 % 0-5 [facility] Erythrocyte distribution wid th ratioOrdered By: Roselyn Cotto on 09-28-2024 Erythrocyte distribution width (RBC) [Ratio] 11.9 % 11.6-14.6 [facility] Erythrocyte distribution wid th standard deviationOrdered By: Roselyn Cotto on 09-28-2024 Erythrocyte distribution width (RBC) [Ratio] 39.0 fl 35.1-43.9 [facility] Glucose Challenge Gest 1H 50 dena 09-28-2024 GLU GEST 50g 1H 86 mg/dL Normal 70-140 [facility] Comment on above: Performed By: #### L 100.0100, L501.0250, L3890.6006, L509.8002 ####[facility] [address] [place], [address] Glucose measurement at 2 luis m rs post-dose gestational glucose tolerance testOrdered By: Roselyn Ctoto on 09-28-2024 Glucose [Mass/Vol] 86 mg/dL 70-140 [facility] HIVon 09-28-2024 HIV Non-Reactive Normal Nonreactive [facility] Comment on above: Result Comment: Non- Reactive Reactive Repeatedly reactive samples must be confirmed according to CDC recommended confirmatory algorithms. The subresults for either HIVAG or AHIV can be used as an aid in the selection of the confirmation algorithm for reactive samples. Send out specimens with Reactive results to [facility] for confirmation. Order the HIV antibody detection and differentiation: #[id number] Performed By: #### L 100.0100, L501.0250, L3890.6006, L509.8002 ####[facility] [address] [place], [place], [id number] Hematocrit Auto (Bld) [Volum e fraction]Ordered By: Roselyn Cotto on 09-28-2024 Hematocrit (Bld) [Volume fraction] 36.4 % Low 37-47 [facility] Hemoglobin measurementOrdere d By: Roselyn Cotto on 09-28-2024 Hemoglobin (Bld) [Mass/Vol] 12.4 g/dL 12.0-15.0 [facility] Immature granulocytes/100 WB C Auto (Bld)Ordered By: Roselyn Cotto on 09-28-2024 Immature granulocytes/100 WBC (Bld) 0.900 % 0.0-0.9 [facility] Comment on above: IG% - Immature Granu locytes (promyelocytes, myelocytes and metamyelocytes) > 1% indicates that a LEFT SHIFT is Present. Laboratory - Chemistry and C hemistry - challengeOrdered By: Micheal Cortez on 09-28-2024 Glucose Ql (U) Negative [facility] Laboratory - UrinalysisOrder ed By: Micheal Cortez on 09-28-2024 Protein Ql (U) Negative [facility] MCV (mean corpuscular volume ) determinationOrdered By: Roselyn Cotto on 09-28-2024 MCV (RBC) [Entitic vol] 90.3 fL 81-99 [facility] Mean corpuscular hemoglobin (MCH) determinationOrdered By: Roselyn Cotto on 09-28-2024 MCH (RBC) [Entitic mass] 30.8 pg 27.0-32.0 [facility] Mean corpuscular hemoglobin concentration (MCHC) determinationOrdered By: Roselyn Cotto on 09-28-2024 MCHC (RBC) [Mass/Vol] 34.1 g/dL 32-36 [facility] Mean platelet volume determi nationOrdered By: Roselyn Cotto on 09-28-2024 Platelet mean volume (Bld) [Entitic vol] 9.7 fL 6.2-12.0 [facility] Monocyte percentageOrdered B y: Roselyn Cotto on 09-28-2024 Monocytes/100 WBC (Bld) 6.5 % 0-10 [facility] Neutrophil percentageOrdered By: Roselyn Cotto on 09-28-2024 Neutrophils/100 WBC (Bld) 74.1 % High 47-70 [facility] No Panel InformationOrdered By: Roselyn Cotto on 09-28-2024 HIV (1&2) Antibody Non-Reactive Nonreactive [facility] Comment on above: Non-ReactiveReactive Repeatedly reactive samples must be confirmed according to CDC recommended confirmatory algorithms. The subresults for either HIVAG or AHIV can be used as an aid in the selection of the confirmation algorithm for reactive samples.Send out specimens with Reactive results to [facility] for confirmation.Order the HIV antibody detection and differentiation: #[id number] Nucleated red blood cell per centageOrdered By: Roselyn Cotto on 09-28-2024 Nucleated RBC/100 WBC (Bld) [Ratio] 0 % 0-5 [facility] [employer] Office Visit Reporton 09-28-2024 [employer] Office Visit Report [facility] [address], [address] [place] [address] OFFICE VISIT Date of Service: 09/28/24 MR#: [id number] Acct: [id number] Name: GURPREET SERNA Rep #: [id number] : 2000 Provider: MIRA marie Age/Sex: 24/F Location: [facility] [place] Status: Signed Intake Vital Signs 05/06/24 08:51 05/06/24 09:49 09/16/24 09:31 09/28/24 11:19 Height 5 ft 3 in 5 ft 3 in 5 ft 3 in 5 ft 3 in Weight: 128 lb 8 oz BMI 22.7 BP 106/70 Intake Visit Reasons: 28 wk ob/glucose Chief Complaint: 28 Week OB/Glucose Technology Sales Representative Required: No Is patient in pain?: No Allergies Penicillins Allergy (Mild, Verified 09/28/24 11:19) Rash Medications ???Medication ???Instructions ???Recorded ???Confirmed ???Type multivit-min no.71-iron fum 28 cap PO 04/29/24 09/28/24 History mg-folate no.1 1 mg-dha 300 mg capsule (PNV-[place]) Last Menstrual Period: 03/09/24 Zika: Zika virus screening: Negative : Yes PFSH 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: No pets and animals: Yes pets and animals: dog(s) history of recent travel: No sexually active: Yes Smoking Status: Never smoker alcohol intake: current alcohol intake frequency: a few times a month details: Not while substance use type: does not use well-balanced diet: about half the time caffeine: Yes Type: coffee Number of servings: 1 eating out: rarely or never during the past year weight has: remained stable what type of physical activity do you participate in: running frequency: daily duration: 30-45 minutes/day sandip/buddhism: Anabaptism seatbelt use: always do you feel safe at home: Yes additional social history: [employer]- [employer] at [employer] History 1 Elective abortions Hx Para 0 Spontaneous abortions Hx # Term Pregnancies Ectopic pregnancies Hx # Pregnancies Multiple births # of living children HPI 28 wk ob/glucose Details: GURPREET SERNA is a 24 year old who presents for routine OB visit. OB Visit SHAREE Calculator Estimated Delivery Date Method Current WG Current Estimate 12/16/24 LMP (Certain) 28w 5d Expected Delivery Route/Plan Labor Preferences- CB/BF classes: encourage labor support person: [place] labor intervention preferences: [] pain management options preferred: epidural cut cord/dad catch: no : yes PP control planned: discussed discussed possible routes of delivery and associated risks: [] special requests: [] Specific Issue/Plans Covid status: [] Flu vaccine: [] Tdap vaccine: [] Rhogam: NA LARC form signed: yes Problem list reviewed and updated with the most current plan of care details and appropriate orders placed. Relevant counseling for the gestational age provided. Continue routine care and follow up unless otherwise noted in visit notes/problem list details Initial Weight: 116 lb Date -???-???-???-???-???-??? -???-???-???-???-???-??? - EGA Weight BP Urine Prot -???-???-???-???-???-??? -???-???-???-???-???-??? - Glucose FHR FuHt Pres Dilation -???-???-???-???-???-??? -???-???-???-???-???-??? - Effaced St Visit Note 05/06/24 -???-???-???-???-???-??? -???-???-???-???-???-??? - 8w 0d 116 lb 6 oz (+6 oz) 132/88 -???-???-???-???-???-??? -???-???-???-???-???-??? - 171 -???-???-???-???-???-??? -???-???-???-???-???-??? - LC- 1.67. LC- CRL 1.67 con with LMP. decline s genetic screening today. LC- CRL 1.67 con with LMP. decline s genetic screening today. recommended 1mg folic acid for family hx of cleft lip 06/07/24 -???-???-???-???-???-??? -???-???-???-???-???-??? - 12w 4d 119 lb 6 oz (+3 lb 6 oz) 122/78 Negative -???-???-???-???-???-??? -???-???-???-???-???-??? - Negative 175 -???-???-???-???-???-??? -???-???-???-???-???-??? - JV- no cramp ing or bleeding c/o constipation. we discussed remedies. anatomy scan ordered with [facility]. 07/07/24 -???-???-???-???-???-??? -???-???-???-???-???-??? - 16w 6d 126 lb 2 oz (+10 lb 2 oz) 108/72 Negative -???-???-???-???-???-??? -???-???-???-???-???-??? - Negative 145 -???-???-???-???-???-??? -???-???-???-???-???-??? - KW- no vb/cr amping. anatomy US on 07/19. AFP declined. 08/04/24 -???-???-???-???-???-??? -???-???-???-???-???-??? - 20w 6d 128 lb 2 oz (+12 lb 2 oz) 113/70 Negative -???-???-???-???-???-??? -???-???-???-???-???-? (more content not included)... Normal [facility] Platelet countOrdered By: Branden Cotto on 09-28-2024 Platelets (Bld) [#/Vol] 208 10*3/uL 150-450 [facility] RBC Auto (Bld) [#/Vol]Ordere d By: Roselyn Cotto on 09-28-2024 RBC (Bld) [#/Vol] 4.03 10*6/uL Low 4.2-5.4 [facility] Syphilis Antibodieson 2024 Syphilis Abs Non-Reactive Normal Nonreactive [facility] Comment on above: Performed By: #### L 100.0100, L501.0250, L3890.6006, L509.8002 ####[facility] [address] [place], [address] White blood cell (WBC) count Ordered By: Roselyn Cotto on 09-28-2024 WBC (Bld) [#/Vol] 7.9 10*3/uL 4.4-11.0 [facility] Urine Cultureon 09-17-2024 URC Culture exhibits no growth. Normal [facility] Comment on above: Performed By: #### M 100.2200 #### [facility] [address] [place], [address] Laboratory - Chemistry and C hemistry - challengeOrdered By: Padmini Duenas on 09-16-2024 Bilirubin Ql (U) Negative [facility] Glucose Ql (U) Negative [facility] Ketones Ql (U) Negative [facility] pH (U) 7.5 [pH] [facility] Specific gravity (U) [Rel density] 1.010 [facility] Urobilinogen (U) [Mass/Vol] 0.4504450 mg/dL [facility] - Hematology and Cell countsOrdered By: Padmini Duenas on 09-16-2024 Hemoglobin Ql (U) Negative [facility] - Specimen inform ationOrdered By: Padmini Duenas on 09-16-2024 Color (U) Dk Yellow [facility] - UrinalysisOrder ed By: Padmini Duenas on 09-16-2024 Nitrite Ql (U) Negative [facility] Protein Ql (U) Trace [facility] No Panel InformationOrdered By: Padmini Duenas on 09-16-2024 Urine Leukocytes Negatve [facility] Urine Non-Hemolyzed Blood [facility] [employer] Office Visit Reporton 09-16-2024 [employer] Office Visit Report [facility] [address], [address] [place] [address] OFFICE VISIT Date of Service: 09/16/24 MR#: [id number] Acct: [id number] Name: GURPREET GORDON Rep #: [id number] : 2000 Provider: Dr. Padmini zelaya MD Age/Sex: 24/F Location: [facility] [place] Status: Signed Intake Vital Signs 09/10/24 13:35 09/16/24 09:27 09/16/24 09:31 Height 5 ft 3 in 5 ft 3 in 5 ft 3 in Weight: 130 lb 4 oz 127 lb 8 oz BMI 23.1 22.6 BP 102/64 107/72 Position Sitting Pulse 51 L Temp 97.7 F L Pulse Oximetry (%) 99 Oxygen Delivery Method room air Intake Visit Reasons: F/U from urgent care for UTI sx Technology Sales Representative Required: No Is patient in pain?: No Allergies Penicillins Allergy (Mild, Verified 09/16/24 09:27) Rash Medications ???Medication ???Instructions ???Recorded ???Confirmed ???Type multivit-min no.71-iron fum 28 cap PO 04/29/24 09/16/24 History mg-folate no.1 1 mg-dha 300 mg capsule (PNV-[place]) Last Menstrual Period: 03/09/24 Zika: Zika virus screening: Negative : No PFSH 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: No pets and animals: Yes pets and animals: dog(s) history of recent travel: No sexually active: Yes Smoking Status: Never smoker alcohol intake: current alcohol intake frequency: a few times a month details: Not while substance use type: does not use well-balanced diet: about half the time caffeine: Yes Type: coffee Number of servings: 1 eating out: rarely or never during the past year weight has: remained stable what type of physical activity do you participate in: running frequency: daily duration: 30-45 minutes/day sandip/buddhism: Anabaptism seatbelt use: always do you feel safe at home: Yes additional social history: [employer]- [employer] at [employer] History 1 Elective abortions Hx Para 0 Spontaneous abortions Hx # Term Pregnancies Ectopic pregnancies Hx # Pregnancies Multiple births # of living children HPI F/U from urgent care for UTI sx Details: GURPREET GORDON is a 24 year old who presents for routine OB visit. OB Visit SHAREE Calculator Estimated Delivery Date Method Current WG Current Estimate 12/16/24 LMP (Certain) 27w 0d Expected Delivery Route/Plan Labor Preferences- CB/BF classes: [] labor support person: [] labor intervention preferences: [] pain management options preferred: [] cut cord/dad catch: [] : [] PP control planned: [] discussed possible routes of delivery and associated risks: [] special requests: [] Specific Issue/Plans Covid status: [] Flu vaccine: [] Tdap vaccine: [] Rhogam: [] LARC form signed: [] Problem list reviewed and updated with the most current plan of care details and appropriate orders placed. Relevant counseling for the gestational age provided. Continue routine care and follow up unless otherwise noted in visit notes/problem list details Initial Weight: 116 lb Date -???-???-???-???-???-??? -???-???-???-???-???-??? - EGA Weight BP Urine Prot -???-???-???-???-???-??? -???-???-???-???-???-??? - Glucose FHR FuHt Pres Dilation -???-???-???-???-???-??? -???-???-???-???-???-??? - Effaced St Visit Note 05/06/24 -???-???-???-???-???-??? -???-???-???-???-???-??? - 8w 0d 116 lb 6 oz (+6 oz) 132/88 -???-???-???-???-???-??? -???-???-???-???-???-??? - 171 -???-???-???-???-???-??? -???-???-???-???-???-??? - LC- 1.67. LC- CRL 1.67 con with LMP. decline s genetic screening today. LC- CRL 1.67 con with LMP. decline s genetic screening today. recommended 1mg folic acid for family hx of cleft lip 06/07/24 -???-???-???-???-???-??? -???-???-???-???-???-??? - 12w 4d 119 lb 6 oz (+3 lb 6 oz) 122/78 Negative -???-???-???-???-???-??? -???-???-???-???-???-??? - Negative 175 -???-???-???-???-???-??? -???-???-???-???-???-??? - JV- no cramp ing or bleeding c/o constipation. we discussed remedies. anatomy scan ordered with [facility]. 07/07/24 -???-???-???-???-???-??? -???-???-???-???-???-??? - 16w 6d 126 lb 2 oz (+10 lb 2 oz) 108/72 Negative -???-???-???-???-???-??? -???-???-???-???-???-??? - Negative 145 -???-???-???-???-???-??? -???-???-???-???-???-??? - KW- no vb/cr amping. anatomy US on 07/19. AFP declined. 08/04/24 -???-???-???-???-???-??? -???-???-???-???-???-??? - 20w 6d 128 lb 2 oz (more content not included)... Normal [facility] Urine cultureOrdered By: Vaibhav Duenas on 09-16-2024 Bacteria identified Cx Nom (U) Culture exhibits no growth. [facility] Urine Cultureon 09-13-2024 [facility] Culture exhibits no growth. Normal [facility] Comment on above: Performed By: #### M 100.2200 ####[facility] [address] [place], [place], [address] Urine cultureOrdered By: Ronald Turcios on 09-12-2024 Bacteria identified Cx Nom (U) Culture exhibits no growth. [facility] - Chemistry and C hemistry - challengeOrdered By: Nichole Turcios on 09-10-2024 Bilirubin Ql (U) Negative [facility] Glucose Ql (U) Negative [facility] Ketones Ql (U) Negative [facility] pH (U) 6.5 [pH] [facility] Specific gravity (U) [Rel density] 1.010 [facility] Urobilinogen (U) [Mass/Vol] 0.2416653 mg/dL [facility] - Hematology and Cell countsOrdered By: Nichole Turcios on 09-10-2024 Hemoglobin Ql (U) Hemolyzed [facility] - Specimen inform ationOrdered By: Nichole Turcios on 09-10-2024 Clarity (U) Cloudy [facility] Color (U) DARK YELLOW [facility] - UrinalysisOrder ed By: Nichole Turcios on 09-10-2024 Nitrite Ql (U) Negative [facility] Protein Ql (U) Trace [facility] No Panel InformationOrdered By: Nichole Turcios on 09-10-2024 Urine Leukocytes Negatve [facility] Urine Non-Hemolyzed Blood Large [facility] Visit Reporton 0 09-10-2024 Urgent Care Visit Report [facility] [address], [address] [place] [address] OFFICE VISIT Date of Service: 09/10/24 MR#: [id number] Acct: [id number] Name: GURPREET GORDON Rep #: [id number] : 2000 Provider: Blanca Stubbs Age/Sex: 24/F Location: [facility] Status: Signed Intake Vital Signs 08/31/24 10:31 09/10/24 13:35 Height 5 ft 3 in 5 ft 3 in Weight: 130 lb 4 oz BMI 23.1 BP 102/64 Position Sitting Pulse 51 L Temp 97.7 F L Temp Source Oral Pulse Oximetry (%) 99 Oxygen Delivery Method room air Intake Visit Reasons: UTI ISSUES Accompanied by: Self Allergies Penicillins Allergy (Mild, Verified 09/10/24 13:31) Rash Medications ???Medication ???Instructions ???Recorded ???Confirmed ???Type multivit-min no.71-iron fum 28 cap PO 04/29/24 09/10/24 History mg-folate no.1 1 mg-dha 300 mg capsule (PNV-[place]) nitrofurantoin 100 mg PO Q12H 5 days #10 caps 09/10/24 Rx monohydrate/macrocrystal s 100 mg capsule (Macrobid) Nurse's Note: Patient having UTI symptoms. Patient stats she is uncomfortable down in her vaginal. Patient is having frequency and burning. Patient does have a discharge when she wipes so she isn't sure if its a UTI or yeast infection. 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: No pets and animals: Yes pets and animals: dog(s) history of recent travel: No sexually active: Yes Smoking Status: Never smoker alcohol intake: current alcohol intake frequency: a few times a month details: Not while substance use type: does not use well-balanced diet: about half the time caffeine: Yes Type: coffee Number of servings: 1 eating out: rarely or never during the past year weight has: remained stable what type of physical activity do you participate in: running frequency: daily duration: 30-45 minutes/day sandip/buddhism: Anabaptism seatbelt use: always do you feel safe at home: Yes additional social history: [employer]- Johanne.Chito.O. at [employer] [facility] [employer] HPI Details: GURPREET GORDON, is a 24 F who presents to the office today for evaluation of the above complaint. Patient is G1, P0 second trimester, who presents for evaluation of urinary frequency and burning with urination. She states symptoms have been ongoing for couple of days. She does note vaginal discharge which she says normal . Recently she was evaluated for a routine OB visit. She admits to history of UTI in the past. Denies prior history of yeast infection. Denies any pruritus or other cottage cheeselike discharge. Patient denies fever chills cough or congestion or other constitutional complaints. She denies chest pain shortness of breath or abdominal pain. No flank pain. 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 She admits to normal p.o. intake and urinary output. Patient denies hematuria hematochezia or hemoptysis. She denies other recent illnesses or ill contacts. She presents for evaluation. ROS Const Constitutional: No body ache, chills or fever(s) Resp Respiratory: No shortness of breath Cardio Cardiology: No irregular heart rhythm, lightheadedness or palpitations Gastro GI: No abdominal pain Genitourinary-Female: Positive for burning urination, painful urination and urinary frequency; No blood in urine, painful intercourse or pelvic pain Neuro Neurology: No behavioral changes or confusion Psych Psychiatric: No behavioral changes and No confusion Exam Const General: cooperative and healthy appearing Resp Effort Inspection: normal respiratory effort Auscultation: Bilateral: Clear to Auscultation Cardio Rate: regular rate Rhythm: regular rhythm GI Auscultation: normal bowel sounds General: No CVA tenderness Psych Appearance: grossly normal Mental Status: mental status grossly normal Results POC Urinalysis Dip (Clinic) Office Urine Color DARK YELLOW Last Edit by Angelica Slade MA on 09/10/24 13:40 Office Urine Clarity Cloudy Last Edit by Angelica Slade MA on 09/10/24 13:40 Office Urine Glucose Negative Last Edit by Angelica Slade MA on 09/10/24 13:40 Office Urine Ketones Negative Last Edit by Angelica Slade MA on 09/10/24 13:40 Off Ur Spec [place] 1.010 Last Edit by Angelica Slade MA on 09/10/24 13:40 Office Urine pH 6.5 Last Edit by Angelica Slade MA on 0 (more content not included)... Normal [facility] - Chemistry and C hemistry - challengeOrdered By: Roselyn Cotto on 08-31-2024 Glucose Ql (U) Negative [facility] - UrinalysisOrder ed By: Roselyn Cotto on 08-31-2024 Protein Ql (U) Negative [facility] [employer] Office Visit Reporton 08-31-2024 [employer] Office Visit Report [facility] [address], [address] [place] [address] OFFICE VISIT Date of Service: 08/31/24 MR#: [id number] Acct: [id number] Name: GURPREET GORDON Rep #: [id number] : 2000 Provider: TAMANNA Jj ams Age/Sex: 24/F Location: [facility] Status: Signed Intake Vital Signs 05/06/24 08:51 08/04/24 08:46 08/31/24 10:25 08/31/24 10:31 Height 5 ft 3 in 5 ft 3 in 5 ft 3 in 5 ft 3 in Weight: 130 lb 4 oz BMI 23.1 BP 109/70 Intake Visit Reasons: 24 WK OB Technology Sales Representative Required: No Is patient in pain?: No Allergies Penicillins Allergy (Mild, Verified 08/31/24 10:24) Rash Medications ???Medication ???Instructions ???Recorded ???Confirmed ???Type multivit-min no.71-iron fum 28 cap PO 04/29/24 08/31/24 History mg-folate no.1 1 mg-dha 300 mg capsule (PNV-[place]) Last Menstrual Period: 03/09/24 Zika: Zika virus screening: Negative : No PFSH 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: No pets and animals: Yes pets and animals: dog(s) history of recent travel: No sexually active: Yes Smoking Status: Never smoker alcohol intake: current alcohol intake frequency: a few times a month details: Not while substance use type: does not use well-balanced diet: about half the time caffeine: Yes Type: coffee Number of servings: 1 eating out: rarely or never during the past year weight has: remained stable what type of physical activity do you participate in: running frequency: daily duration: 30-45 minutes/day sandip/buddhism: Anabaptism seatbelt use: always do you feel safe at home: Yes additional social history: [employer]ora- Johanne.Chito.O. at [employer] [facility] History 1 Elective abortions Hx Para 0 Spontaneous abortions Hx # Term Pregnancies Ectopic pregnancies Hx # Pregnancies Multiple births # of living children HPI 24 WK OB Details: GURPREET GORDON is a 24 year old who presents for routine OB visit. OB Visit SHAREE Calculator Estimated Delivery Date Method Current WG Current Estimate 12/16/24 LMP (Certain) 24w 5d Expected Delivery Route/Plan Labor Preferences- CB/BF classes: [] labor support person: [] labor intervention preferences: [] pain management options preferred: [] cut cord/dad catch: [] : [] PP control planned: [] discussed possible routes of delivery and associated risks: [] special requests: [] Specific Issue/Plans Covid status: [] Flu vaccine: [] Tdap vaccine: [] Rhogam: [] LARC form signed: [] Problem list reviewed and updated with the most current plan of care details and appropriate orders placed. Relevant counseling for the gestational age provided. Continue routine care and follow up unless otherwise noted in visit notes/problem list details Initial Weight: 116 lb Date -???-???-???-???-???-??? -???-???-???-???-???-??? - EGA Weight BP Urine Prot -???-???-???-???-???-??? -???-???-???-???-???-??? - Glucose FHR FuHt Pres Dilation -???-???-???-???-???-??? -???-???-???-???-???-??? - Effaced St Visit Note 05/06/24 -???-???-???-???-???-??? -???-???-???-???-???-??? - 8w 0d 116 lb 6 oz (+6 oz) 132/88 -???-???-???-???-???-??? -???-???-???-???-???-??? - 171 -???-???-???-???-???-??? -???-???-???-???-???-??? - LC- 1.67. LC- CRL 1.67 con with LMP. decline s genetic screening today. LC- CRL 1.67 con with LMP. decline s genetic screening today. recommended 1mg folic acid for family hx of cleft lip 06/07/24 -???-???-???-???-???-??? -???-???-???-???-???-??? - 12w 4d 119 lb 6 oz (+3 lb 6 oz) 122/78 Negative -???-???-???-???-???-??? -???-???-???-???-???-??? - Negative 175 -???-???-???-???-???-??? -???-???-???-???-???-??? - JV- no cramp ing or bleeding c/o constipation. we discussed remedies. anatomy scan ordered with [facility]. 07/07/24 -???-???-???-???-???-??? -???-???-???-???-???-??? - 16w 6d 126 lb 2 oz (+10 lb 2 oz) 108/72 Negative -???-???-???-???-???-??? -???-???-???-???-???-??? - Negative 145 -???-???-???-???-???-??? -???-???-???-???-???-??? - KW- no vb/cr amping. anatomy US on 07/19. AFP declined. 08/04/24 -???-???-???-???-???-??? -???-???-???-???-???-??? - 20w 6d 128 lb 2 oz (+12 lb 2 oz) 113/70 Negative -???-???-???-???-???-??? -???-???-???-???-???-??? - Negative 135 -???-???-???-???-???-??? -???-???-???-???-???-??? - JV- no compl aints t (more content not included)... Normal [facility] - Chemistry and C hemistry - challengeOrdered By: Melia Parkinson on 08-04-2024 Glucose Ql (U) Negative [facility] - UrinalysisOrder ed By: Melia Parkinson on 08-04-2024 Protein Ql (U) Negative [facility] [employer] Office Visit Reporton 08-04-2024 [employer] Office Visit Report [facility] [address], [address] [place] [address] OFFICE VISIT Date of Service: 08/04/24 MR#: [id number] Acct: [id number] Name: GURPREET GORDON Rep #: [id number] : 2000 Provider: Dr. Melia Morales DO Age/Sex: 24/F Location: [facility] Status: Signed Intake Vital Signs 05/06/24 08:51 05/06/24 09:49 07/07/24 11:32 08/04/24 08:44 08/04/24 08:46 Height 5 ft 3 in 5 ft 3 in 5 ft 3 in 5 ft 3 in 5 ft 3 in Weight: 128 lb 2 oz BMI 22.6 BP 113/70 Intake Visit Reasons: 20 WK OB Technology Sales Representative Required: No Is patient in pain?: No Allergies Penicillins Allergy (Mild, Verified 08/04/24 08:43) Rash Medications ???Medication ???Instructions ???Recorded ???Confirmed ???Type multivit-min no.71-iron fum 28 cap PO 04/29/24 08/04/24 History mg-folate no.1 1 mg-dha 300 mg capsule (PNV-[place]) Last Menstrual Period: 03/09/24 Zika: Zika virus screening: Negative : No PFSH 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: No pets and animals: Yes pets and animals: dog(s) history of recent travel: No sexually active: Yes Smoking Status: Never smoker alcohol intake: current alcohol intake frequency: a few times a month details: Not while substance use type: does not use well-balanced diet: about half the time caffeine: Yes Type: coffee Number of servings: 1 eating out: rarely or never during the past year weight has: remained stable what type of physical activity do you participate in: running frequency: daily duration: 30-45 minutes/day sandip/buddhism: Anabaptism seatbelt use: always do you feel safe at home: Yes additional social history: [facility] [facility] [facility] History 1 Elective abortions Hx Para 0 Spontaneous abortions Hx # Term Pregnancies Ectopic pregnancies Hx # Pregnancies Multiple births # of living children HPI 20 WK OB Details: GURPREET GORDON is a 24 year old who presents for routine OB visit. OB Visit SHAREE Calculator Estimated Delivery Date Method Current WG Current Estimate 12/16/24 LMP (Certain) 20w 6d Expected Delivery Route/Plan Labor Preferences- CB/BF classes: [] labor support person: [] labor intervention preferences: [] pain management options preferred: [] cut cord/dad catch: [] : [] PP control planned: [] discussed possible routes of delivery and associated risks: [] special requests: [] Specific Issue/Plans Covid status: [] Flu vaccine: [] Tdap vaccine: [] Rhogam: [] LARC form signed: [] Problem list reviewed and updated with the most current plan of care details and appropriate orders placed. Relevant counseling for the gestational age provided. Continue routine care and follow up unless otherwise noted in visit notes/problem list details Initial Weight: 116 lb Date -???-???-???-???-???-??? -???-???-???-???-???-??? - EGA Weight BP Urine Prot -???-???-???-???-???-??? -???-???-???-???-???-??? - Glucose FHR FuHt Pres Dilation -???-???-???-???-???-??? -???-???-???-???-???-??? - Effaced St Visit Note 05/06/24 -???-???-???-???-???-??? -???-???-???-???-???-??? - 8w 0d 116 lb 6 oz (+6 oz) 132/88 -???-???-???-???-???-??? -???-???-???-???-???-??? - 171 -???-???-???-???-???-??? -???-???-???-???-???-??? - LC- 1.67. LC- CRL 1.67 con with LMP. decline s genetic screening today. LC- CRL 1.67 con with LMP. decline s genetic screening today. recommended 1mg folic acid for family hx of cleft lip 06/07/24 -???-???-???-???-???-??? -???-???-???-???-???-??? - 12w 4d 119 lb 6 oz (+3 lb 6 oz) 122/78 Negative -???-???-???-???-???-??? -???-???-???-???-???-??? - Negative 175 -???-???-???-???-???-??? -???-???-???-???-???-??? - JV- no cramp ing or bleeding c/o constipation. we discussed remedies. anatomy scan ordered with mfm. 07/07/24 -???-???-???-???-???-??? -???-???-???-???-???-??? - 16w 6d 126 lb 2 oz (+10 lb 2 oz) 108/72 Negative -???-???-???-???-???-??? -???-???-???-???-???-??? - Negative 145 -???-???-???-???-???-??? -???-???-???-???-???-??? - KW- no vb/cr amping. anatomy US on 07/19. AFP declined. 08/04/24 -???-???-???-???-???-??? -???-???-???-???-???-??? - 20w 6d 128 lb 2 oz (+12 lb 2 oz) 113/70 -???-???-???-???-???-??? -???-???-???-???-???-??? - 135 -???-???-???-???-???-??? -???-???-???-???-???- (more content not included)... 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 FU US in 10 weeks. 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 Report [facility] [address], [address] [place] [address] OFFICE VISIT Date of Service: 07/07/24 MR#: [id number] Acct: [id number] Name: GURPREET GORDON Rep #: [id number] : 2000 Provider: TAMANNA Jj ams Age/Sex: 24/F Location: [facility] Status: Signed Intake Vital Signs 05/06/24 08:51 06/07/24 14:48 07/07/24 11:32 Height 5 ft 3 in 5 ft 3 in 5 ft 3 in Weight: 126 lb 2 oz BMI 22.3 BP 108/72 Intake Visit Reasons: 16 WK OB Chief Complaint: 16 wk ob Is patient in pain?: No Allergies Penicillins Allergy (Mild, Verified 07/07/24 11:35) Rash Medications ???Medication ???Instructions ???Recorded ???Confirmed ???Type multivit-min no.71-iron fum 28 cap PO 04/29/24 07/07/24 History mg-folate no.1 1 mg-dha 300 mg capsule (PNV-[place]) Last Menstrual Period: 03/09/24 : No PFSH 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: No pets and animals: Yes pets and animals: dog(s) history of recent travel: No sexually active: Yes Smoking Status: Never smoker alcohol intake: current alcohol intake frequency: a few times a month details: Not while substance use type: does not use well-balanced diet: about half the time caffeine: Yes Type: coffee Number of servings: 1 eating out: rarely or never during the past year weight has: remained stable what type of physical activity do you participate in: running frequency: daily duration: 30-45 minutes/day sandip/buddhism: Anabaptism seatbelt use: always do you feel safe at home: Yes additional social history: Bora- Johanne.F.O. at [employer] History 1 Elective abortions Hx Para 0 Spontaneous abortions Hx # Term Pregnancies Ectopic pregnancies Hx # Pregnancies Multiple births # of living children HPI 16 WK OB Details: GURPREET GORDON is a 24 year old who presents for routine OB visit. OB Visit SHAREE Calculator Estimated Delivery Date Method Current WG Current Estimate 12/16/24 LMP (Certain) 16w 6d Expected Delivery Route/Plan Labor Preferences- CB/BF classes: [] labor support person: [] labor intervention preferences: [] pain management options preferred: [] cut cord/dad catch: [] : [] PP control planned: [] discussed possible routes of delivery and associated risks: [] special requests: [] Specific Issue/Plans Covid status: [] Flu vaccine: [] Tdap vaccine: [] Rhogam: [] LARC form signed: [] Problem list reviewed and updated with the most current plan of care details and appropriate orders placed. Relevant counseling for the gestational age provided. Continue routine care and follow up unless otherwise noted in visit notes/problem list details Initial Weight: 116 lb Date -???-???-???-???-???-??? -???-???-???-???-???-??? - EGA Weight BP Urine Prot -???-???-???-???-???-??? -???-???-???-???-???-??? - Glucose FHR FuHt Pres Dilation -???-???-???-???-???-??? -???-???-???-???-???-??? - Effaced St Visit Note 05/06/24 -???-???-???-???-???-??? -???-???-???-???-???-??? - 8w 0d 116 lb 6 oz (+6 oz) 132/88 -???-???-???-???-???-??? -???-???-???-???-???-??? - 171 -???-???-???-???-???-??? -???-???-???-???-???-??? - LC- 1.67. LC- CRL 1.67 con with LMP. decline s genetic screening today. LC- CRL 1.67 con with LMP. decline s genetic screening today. recommended 1mg folic acid for family hx of cleft lip 06/07/24 -???-???-???-???-???-??? -???-???-???-???-???-??? - 12w 4d 119 lb 6 oz (+3 lb 6 oz) 122/78 Negative -???-???-???-???-???-??? -???-???-???-???-???-??? - Negative 175 -???-???-???-???-???-??? -???-???-???-???-???-??? - JV- no cramp ing or bleeding c/o constipation. we discussed remedies. anatomy scan ordered with [facility]. 07/07/24 -???-???-???-???-???-??? -???-???-???-???-???-??? - 16w 6d 126 lb 2 oz (+10 lb 2 oz) 108/72 Negative -???-???-???-???-???-??? -???-???-???-???-???-??? - Negative 145 -???-???-???-???-???-??? -???-???-???-???-???-??? - KW- no vb/cr amping. anatomy US on 07/19. AFP declined. ACOG First Trimester First Trimester: Desire for , Alcohol, Tobacco Cessation, Illicit/Recreational Drug/Substance Use, Intimate Partner Violence, Barriers to care, Unstable Housing, Communication Barriers, Environmental/Work Hazards, Anticipated Course of Care, Toxoplasmosis Precations (more content not included)... Normal [facility] - Chemistry and C hemistry - challengeon 06-07-2024 Glucose Ql (U) Negative [facility] - Urinalysison Protein Ql (U) Negative [facility] [employer] Office Visit Reporton 06-07-2024 Gang Super[employer] Office Visit Report [facility] [address], [address] [place] [address] OFFICE VISIT Date of Service: 06/07/24 MR#: [id number] Acct: [id number] Name: GURPREET GORDON Rep #: [id number] : 2000 Provider: Dr. Melia Morales, DO Age/Sex: 24/F Location: [facility] Status: Signed Intake Vital Signs 05/06/24 09:49 06/07/24 14:46 06/07/24 14:48 Height 5 ft 3 in 5 ft 3 in 5 ft 3 in Weight: 119 lb 6 oz BMI 21.1 BP 122/78 H Intake Visit Reasons: 12 wk OB Technology Sales Representative Required: No Is patient in pain?: No Allergies Penicillins Allergy (Mild, Verified 06/07/24 14:45) Rash Medications ???Medication ???Instructions ???Recorded ???Confirmed ???Type multivit-min no.71-iron fum 28 cap PO 04/29/24 06/07/24 History mg-folate no.1 1 mg-dha 300 mg capsule (PNV-[place]) Last Menstrual Period: 03/09/24 Zika: Zika virus screening: Negative : No PFSH 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: No pets and animals: Yes pets and animals: dog(s) history of recent travel: No sexually active: Yes Smoking Status: Never smoker alcohol intake: current alcohol intake frequency: a few times a month details: Not while substance use type: does not use well-balanced diet: about half the time caffeine: Yes Type: coffee Number of servings: 1 eating out: rarely or never during the past year weight has: remained stable what type of physical activity do you participate in: running frequency: daily duration: 30-45 minutes/day sandip/buddhism: Anabaptism seatbelt use: always do you feel safe at home: Yes additional social history: 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 OB Visit SHAREE Calculator Estimated Delivery Date Method Current WG Current Estimate 12/16/24 LMP (Certain) 12w 4d Expected Delivery Route/Plan Labor Preferences- CB/BF classes: [] labor support person: [] labor intervention preferences: [] pain management options preferred: [] cut cord/dad catch: [] : [] PP control planned: [] discussed possible routes of delivery and associated risks: [] special requests: [] Specific Issue/Plans Covid status: [] Flu vaccine: [] Tdap vaccine: [] Rhogam: [] LARC form signed: [] Problem list reviewed and updated with the most current plan of care details and appropriate orders placed. Relevant counseling for the gestational age provided. Continue routine care and follow up unless otherwise noted in visit notes/problem list details Initial Weight: 116 lb Date -???-???-???-???-???-??? -???-???-???-???-???-??? - EGA Weight BP Urine Prot -???-???-???-???-???-??? -???-???-???-???-???-??? - Glucose FHR FuHt Pres Dilation -???-???-???-???-???-??? -???-???-???-???-???-??? - Effaced St Visit Note 05/06/24 -???-???-???-???-???-??? -???-???-???-???-???-??? - 8w 0d 116 lb 6 oz (+6 oz) 132/88 -???-???-???-???-???-??? -???-???-???-???-???-??? - 171 -???-???-???-???-???-??? -???-???-???-???-???-??? - LC- 1.67. LC- CRL 1.67 con with LMP. decline s genetic screening today. LC- CRL 1.67 con with LMP. decline s genetic screening today. recommended 1mg folic acid for family hx of cleft lip 06/07/24 -???-???-???-???-???-??? -???-???-???-???-???-??? - 12w 4d 119 lb 6 oz (+3 lb 6 oz) 122/78 Negative -???-???-???-???-???-??? -???-???-???-???-???-??? - Negative 175 -???-???-???-???-???-??? -???-???-???-???-???-??? - JV- no cramp ing or bleeding c/o constipation. we discussed remedies. anatomy scan ordered with mfm. ACOG First Trimester First Trimester: Desire for , Alcohol, Tobacco Cessation, Illicit/Recreational Drug/Substance Use, Intimate Partner Violence, Barriers to care, Unstable Housing, Communication Barriers, Environmental/Work Hazards, Anticipated Course of Care, Toxoplasmosis Precations, Use of Any medications, Sexual activity, Exercise, Dental Care, Sauna/Hot tub use, Seat Belt use, Childbirth classes/Hospital facilities, Travel, Indications for Ultrasound and Screening for Aneuploidy; Discussed R (more content not included)... Normal [facility] Chlamydia/GC BREANA aptimaon CHLAMY,NUC ACID Negative Normal Negative [facility] Comment on above: Performed By: #### M 100.2200, L7000.1800 #### [facility] [address] [place], [address] GC BY NUC ACID Negative Normal Negative [facility] Comment on above: Result Comment: Perf ormed at: =G - [facility] [address] [place] [id number] Latex Caster: Michelle Barajas MD, Phone: [phone] Performed By: #### M 100.2200, L7000.1800 #### [facility] [address] [place], [address] V-Zoster IgG (Immunity)on V ZOSTER IgG Normal [facility] Comment on above: Result Comment: RESU LT: NON REACTIVE Please note reference interval change A Reactive result is considered evidence of immunity to VZV. Reactive indicates that VZV IgG was detected consistent with previous infection and/or vaccination. A Non Reactive result indicates that VZV IgG was not detected suggesting that immunity has not been acquired. Performed at: [address] [id number] Latex Caster: Marcos Wilson PhD, Phone: [phone] Performed By: #### L 100.0100, L3890.6300, BTS, L3400.0000, L509.8000, L509.4005, L3890.6005, L3890.6100 ####[facility] [address] [place], [address] Urine Cultureon 05-07-2024 URC Culture exhibits no growth. Normal [facility] Comment on above: Performed By: #### M 100.2200, L7000.1800 #### [facility] [address] [place], [address] CBC W/Diff, Automatedon 04-18 Absolute Lymph 1.36 X10 3/uL Normal 0.83-4.51 [facility] Comment on above: Performed By: #### L 100.0100, L3890.6300, BTS, L3400.0000, L509.8000, L509.4005, L3890.6005, L3890.6100 ####[facility] [address] [place], [address] Absolute Neut 3.8 X10 3/uL Normal 2.0-7.7 [facility] Comment on above: Performed By: #### L 100.0100, L3890.6300, BTS, L3400.0000, L509.8000, L509.4005, L3890.6005, L3890.6100 ####[facility] [address] [place], [address] Basophils/100 WBC (Bld) 0.9 % Normal 0-1 [facility] Comment on above: Performed By: #### L 100.0100, L3890.6300, BTS, L3400.0000, L509.8000, L509.4005, L3890.6005, L3890.6100 ####[facility] [address] [place], [address] Eosinophils/100 WBC (Bld) 0.9 % Normal 0-5 [facility] Comment on above: Performed By: #### L 100.0100, L3890.6300, BTS, L3400.0000, L509.8000, L509.4005, L3890.6005, L3890.6100 ####[facility] [address] [place], [address] Erythrocyte distribution width (RBC) [Ratio] 11.6 % Normal 11.6-14.6 [facility] Comment on above: Performed By: #### L 100.0100, L3890.6300, BTS, L3400.0000, L509.8000, L509.4005, L3890.6005, L3890.6100 ####[facility] [address] [place], [address] Hematocrit (Bld) [Volume fraction] 39.1 % Normal 37-47 [facility] Comment on above: Performed By: #### L 100.0100, L3890.6300, BTS, L3400.0000, L509.8000, L509.4005, L3890.6005, L3890.6100 ####[facility] [address] [place], [address] Hemoglobin (Bld) [Mass/Vol] 13.2 g/dL Normal 12.0-15.0 [facility] Comment on above: Performed By: #### L 100.0100, L3890.6300, BTS, L3400.0000, L509.8000, L509.4005, L3890.6005, L3890.6100 ####[facility] [address] [place], [address] IG% 0.300 Normal 0.0-0.9 [facility] Comment on above: Result Comment: IG% - Immature Granulocytes (promyelocytes, myelocytes and metamyelocytes) > 1% indicates that a LEFT SHIFT is Present. Performed By: #### L 100.0100, L3890.6300, BTS, L3400.0000, L509.8000, L509.4005, L3890.6005, L3890.6100 ####[facility] [address] [place], [address] Lymphocytes/100 WBC (Bld) 23.7 % Normal 19-41 [facility] Comment on above: Performed By: #### L 100.0100, L3890.6300, BTS, L3400.0000, L509.8000, L509.4005, L3890.6005, L3890.6100 ####[facility] [address] [place], [address] MCH (RBC) [Entitic mass] 29.9 pg Normal 27.0-32.0 [facility] Comment on above: Performed By: #### L 100.0100, L3890.6300, BTS, L3400.0000, L509.8000, L509.4005, L3890.6005, L3890.6100 ####[facility] [address] [place], [address] MCHC (RBC) [Mass/Vol] 33.8 g/dL Normal 32-36 [facility] Comment on above: Performed By: #### L 100.0100, L3890.6300, BTS, L3400.0000, L509.8000, L509.4005, L3890.6005, L3890.6100 ####[facility] [address] [place], [address] MCV (RBC) [Entitic vol] 88.7 fL Normal 81-99 [facility] Comment on above: Performed By: #### L 100.0100, L3890.6300, BTS, L3400.0000, L509.8000, L509.4005, L3890.6005, L3890.6100 ####[facility] [address] [place], [address] Monocytes/100 WBC (Bld) 8.9 % Normal 0-10 [facility] Comment on above: Performed By: #### L 100.0100, L3890.6300, BTS, L3400.0000, L509.8000, L509.4005, L3890.6005, L3890.6100 ####[facility] [address] [place], [address] Neutrophils/100 WBC (Bld) 65.3 % Normal 47-70 [facility] Comment on above: Performed By: #### L 100.0100, L3890.6300, BTS, L3400.0000, L509.8000, L509.4005, L3890.6005, L3890.6100 ####[facility] [address] [place], [address] Nucleated RBC (Bld) [#/Vol] 0 10*3/uL Normal 0-5 [facility] Comment on above: Performed By: #### L 100.0100, L3890.6300, BTS, L3400.0000, L509.8000, L509.4005, L3890.6005, L3890.6100 ####[facility] [address] [place], [address] Platelet mean volume (Bld) [Entitic vol] 9.9 fL Normal 6.2-12.0 [facility] Comment on above: Performed By: #### L 100.0100, L3890.6300, BTS, L3400.0000, L509.8000, L509.4005, L3890.6005, L3890.6100 ####[facility] [address] [place], [address] Platelets (Bld) [#/Vol] 239 10*3/uL Normal 150-450 [facility] Comment on above: Performed By: #### L 100.0100, L3890.6300, BTS, L3400.0000, L509.8000, L509.4005, L3890.6005, L3890.6100 ####[facility] [address] [place], [address] RBC (Bld) [#/Vol] 4.41 10*6/uL Normal 4.2-5.4 [facility] Comment on above: Performed By: #### L 100.0100, L3890.6300, BTS, L3400.0000, L509.8000, L509.4005, L3890.6005, L3890.6100 ####[facility] [address] [place], [address] RDW SD 37.7 fl Normal 35.1-43.9 [facility] Comment on above: Performed By: #### L 100.0100, L3890.6300, BTS, L3400.0000, L509.8000, L509.4005, L3890.6005, L3890.6100 ####[facility] [address] [place], [address] WBC (Bld) [#/Vol] 5.7 10*3/uL Normal 4.4-11.0 [facility] Comment on above: Performed By: #### L 100.0100, L3890.6300, BTS, L3400.0000, L509.8000, L509.4005, L3890.6005, L3890.6100 ####[facility] [address] [place], [place], [id number] HIV - WCHon 05-06-2024 HIV Non-Reactive Normal Nonreactive [facility] Comment on above: Order Comment: Reaso n for Exam: Performed By: #### L 100.0100, L3890.6300, BTS, L3400.0000, L509.8000, L509.4005, L3890.6005, L3890.6100 ####[facility] [address] [place], [place], [id number] Hepatitis B Surface Antigeno n 05-06-2024 HEP B Surf Ag [facility] Comment on above: Order Comment: Reaso n for Exam: Performed By: #### L 100.0100, L3890.6300, BTS, L3400.0000, L509.8000, L509.4005, L3890.6005, L3890.6100 ####[facility] [address] [place], [place], [id number] Hepatitis C Antibodyon 05-06 Hepatitis C AB Non-Reactive Normal Nonreactive [facility] Comment on above: Order Comment: Reaso n for Exam: Result Comment: Non Reactive: < 0.8 Equivocal: >/= 0.8 to < 1.0 Reactive: >/= 1.0 The CDC requires that a reactive/equivocal HCV antibody result be sent out for confirmation. HCV Quant by PCR testing. Performed By: #### L 100.0100, L3890.6300, BTS, L3400.0000, L509.8000, L509.4005, L3890.6005, L3890.6100 ####[facility] [address] [place], [address] L509.8000on 05-06-2024 Syphilis Abs Non-Reactive Normal [facility] Comment on above: Order Comment: Luis avendaño for Exam: Performed By: #### L 100.0100, L3890.6300, BTS, L3400.0000, L509.8000, L509.4005, L3890.6005, L3890.6100 ####[facility] [address] 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 Is patient in pain?: No Allergies Penicillins Allergy (Mild, Verified 04/29/24 09:02) Rash Medications ???Medication ???Instructions ???Recorded ???Confirmed ???Type multivit-min no.71-iron fum 28 cap PO 04/29/24 04/29/24 History mg-folate no.1 1 mg-dha 300 mg capsule (PNV-[place]) Last Menstrual Period: 03/09/24 : Yes PFSH 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: No pets and animals: Yes pets and animals: dog(s) history of recent travel: No sexually active: Yes Smoking Status: Never smoker alcohol intake: current alcohol intake frequency: a few times a month details: Not while substance use type: does not use well-balanced diet: about half the time caffeine: Yes Type: coffee Number of servings: 1 eating out: rarely or never during the past year weight has: remained stable what type of physical activity do you participate in: running frequency: daily duration: 30-45 minutes/day sandip/buddhism: Anabaptism seatbelt use: always do you feel safe at home: Yes additional social history: Rigoberto Garza. [facility] [facility] History 1 Elective abortions Hx Para 0 Spontaneous abortions Hx # Term Pregnancies Ectopic pregnancies Hx # Pregnancies Multiple births # of living children HPI LMP 03/11 SHAREE 12/16 Details: GURPREET GORDON is a 24 year old who presents for New OB visit. OB Visit SHAREE Calculator Estimated Delivery Date Method Current WG Current Estimate 12/16/24 LMP (Certain) 8w 0d Comments: HIV: Urine Culture: Sequential Screen: NIPT Screen: Estimated Due Date: 12/16/24 Expected Delivery Route/Plan Labor Preferences- CB/BF classes: [] labor support person: [] labor intervention preferences: [] pain management options preferred: [] cut cord/dad catch: [] : [] PP control planned: [] discussed possible routes of delivery and associated risks: [] special requests: [] Specific Issue/Plans Covid status: [] Flu vaccine: [] Tdap vaccine: [] Rhogam: [] LARC form signed: [] Problem list reviewed and updated with the most current plan of care details and appropriate orders placed. Relevant counseling for the gestational age provided. Continue routine care and follow up unless otherwise noted in visit notes/problem list details Initial Weight: 116 lb Date -???-???-???-???-???-??? -???-???-???-???-???-??? - EGA Weight BP Urine Prot -???-???-???-???-???-??? -???-???-???-???-???-??? - Glucose FHR FuHt Pres Dilation -???-???-???-???-???-??? -???-???-???-???-???-??? - Effaced St Visit Note 05/06/24 -???-???-???-???-???-??? -???-???-???-???-???-??? - 8w 0d 116 lb 6 oz (+6 oz) 132/88 -???-???-???-???-???-??? -???-???-???-???-???-??? - 171 -???-???-???-???-???-??? -???-???-???-???-???-??? - LC- 1.67. LC- CRL 1.67 con with LMP. decline s genetic screening today. LC- CRL 1.67 con with LMP. decline s genetic screening today. recommended 1mg folic acid for family hx of cleft lip Menstrual History Last Menstrual Period: 03/09/24 Reported LMP: definite Normal amount/duration: Yes Frequency in days: 28-30 On hormonal BC at conception: No hCG+: 04/08/24 Antepartum Record Genetic Screening: Congenital Heart Defect: Other, Neural Tube Defect: Other, Hemoglobinopathy Or Carrier: Other, Cystic Fibrosis: Other, Chromosome Abnormality: Other, Leonid-Sachs: Other, Hemophilia: Other, Intellectual Disability/Autism: Patient (Brother Tourette's ADHD, Brother with Tourettes only), Recurrent Loss/Stillbirth: Other, Other Structural Defect: Partner (Sister cleft lip), Other Genetic Disease: Other and Maternal Metabolic Disorder: Other Infection History: Live with someone with TB or Exposed to TB: No, Patient or Partner has history of Genital Herpes: No, Rash or Viral illness since last mentrual period: No, Prior GBS-Infecte (more content not included)... Normal [facility] Rubella IgGon 05-06-2024 Rubella IgG Reactive Normal Nonreactive [facility] Comment on above: Order Comment: Reaso n for Exam: Result Comment: Anti body Results Interpretation of Immune Status Non Reactive Presumed Non-Immune Equivocal Equivocal Reactive Presumed Immune Performed By: #### L 100.0100, L3890.6300, BTS, L3400.0000, L509.8000, L509.4005, L3890.6005, L3890.6100 ####[facility] [address] [place], [address] Type AND Screenon 05-06-2024 ABO and Rh group Nom (Bld) Blood group O Rh(D) positive Normal [facility] Comment on above: Order Comment: PN Performed By: #### L 100.0100, L3890.6300, BTS, L3400.0000, L509.8000, L509.4005, L3890.6005, L3890.6100 ####[facility] [address] [place], [place], [address] HEMATOCRITon 07-24-2021 Hematocrit (Bld) [Volume fraction] 38.4 % Normal 34.9-44.3 [facility] Comment on above: Performed By: #### H CT #### [facility] (DEFAULT) [address] [place] [address] MRI CARDIAC WITH CONTRAST W/ VELOCITY FLOW MAPon 07-24-2021 MRI CARDIAC WITH CONTRAST W/VELOCITY FLOW MAP [facility] CMR Report Name: GURPREET GORDON : 2000 Scan Date: 2021-07-24 16:43:10 Electronically signed by Bhavya Prater 17:25:01 VITALS HEIGHT: 63 in (160.02 cm) WEIGHT: 125.00 lbs (56.70 kgs) BSA: 1.58 m^2 BP: 109 / 68 mmHg BASELINE HR: 59 BPM FINAL Normal biventricular size and systolic function with faint non-ischemic fibrosis which may suggest prior mild myocarditis. No active myocardial edema/inflammation. 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 CARDIAC MRI LEFT VENTRICLE: LV wall thickness is normal. LV cavity size is normal. LV systolic function is normal. Quantitative LVEF 58 %. VIABILITY: Late gadolinium enhancement imaging demonstrates faint epicardial fibrosis in the basal inferolateral wall of non-ischemic etiology which may represent prior mild myocarditis. RIGHT VENTRICLE: RV cavity size is normal. RV systolic function is normal. Quantitative RVEF 60 %. LEFT ATRIUM: LA cavity size is normal. RIGHT ATRIUM: RA cavity size is normal. PERICARDIUM: There is a trivial pericardial effusion. AORTIC VALVE: Peak aortic valve velocity 1.3 m/sec. MITRAL VALVE: There is trivial mitral regurgitation. TRICUSPID VALVE: There is trivial tricuspid regurgitation. OTHER FINDINGS: No evidence of myocardial edema/inflammation on T2 mapping. Normal gakona T1 with ECV calculated at 28% (normal<31%). Mild bibasilar airspace disease. CORE EXAM MEASUREMENTS VOLUMETRIC ANALYSIS . . LV Reference RV Reference +------+ +---- --+ +------+-- + EDV ml 150 (99-179) 157 (100-184) ml/m^2 95 (65-99) 99 (65-102) ESV ml 63 (29-66) 63 (29-82) ml/m^2 40 (19-37) 40 (20-45) CO L/min 5.13 5.55 L/min/m^2 3.24 3.50 MASS g 66 (69-141) g/m^2 42 (47-77) SV ml 87 (63-119) 94 (61-112) ml/m^2 55 (42-66) 59 (39-63) EF % 58 (56-75) 60 (49-73) '------+ +---- --+ +------+-- ' LV DIMENSIONS WALL THICKNESS - ANTEROSEPTAL: 0.8 cm WALL THICKNESS - INFEROLATERAL: 0.7 cm LV SHAREE: 4.9 cm LV ESD: 3.3 cm LA DIMENSIONS (LV SYSTOLE) AREA - 2 CHAMBER: 17 cm^2 LENGTH - 2 CHAMBER: 4.7 cm AREA - 4 CHAMBER: 19 cm^2 LENGTH - 4 CHAMBER: 4.8 cm VOLUME: 58 ml VOLUME NORMALIZED: 36.9 ml/m^2 RA DIMENSIONS (RV SYSTOLE) AREA - 4 CHAMBER: 18 cm^2 LENGTH - 4 CHAMBER: 5.0 cm AORTIC ROOT DIMENSIONS SINUS OF VALSALVA: 2.6 cm EXTRACELLULAR VOLUME MEASUREMENT PRE-CONTRAST T1 MYOCARDIUM: 1006 msec PRE-CONTRAST T1 LV CAVITY: 1620 msec POST-CONTRAST T1 MYOCARDIUM: 471 msec POST-CONTRAST T1 LV CAVITY: 318 msec HEMATOCRIT: 38.4 % HEMATOCRIT DATE: ECV: 28 % 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: [employer] MODEL: [employer] PULSE SEQUENCES: SSFP cine, 2D LGE segmented, 2D LGE single-shot, Pre-contrast T1 mapping, Post-contrast T1 mapping, T2 mapping, Phase contrast imaging, Fat-water imaging, Bright-blood SSFP morphology CONTRAST AGENT TYPE: Gadavist GD CONCENTRATION: 1.0 M VOLUME ADMINISTERED: 8 ml DOSAGE: 0.14 mmol/kg SERUM CREATININE: 0.55 mg/dL GFR: 149.77 ml/min/1.73m^2 CREATININE DATE: SETUP DATE OF EVENT: SCAN TYPE: Clinical PATIENT TYPE: Outpatient REASON(S) FOR SCAN: Palpitations, Other symptoms, Myocarditis (known/suspect) OTHER, DESCRIBE:: Dizziness REFERRING PHYSICIAN: 1) FLEX CAMERON ATTENDING PHYSICIAN: Bhavya Prater FELLOW: Poly Lewis NURSE: Sendy Goldberg TECHNOLOGIST: Sylvia Buchanan (more content not included)... Normal [facility] URINE CULTUREon 12-27-2020 Bacteria identified Cx Nom (U) Specimen source XXX: CLEAN VOIDED MIDSTREAM Service Cmnt XXX-Imp: NONE Bacteria identified: NO GROWTH 2 DAYS Performed at [address] [address] : FINAL 12/27/2020 [facility] Comment on above: Performed By: #### U R #### [address] [address] CBC with Diffon 12-25-2020 AB IMMATURE NEUT 0.01 K/UL Normal 0.0-0.1 [facility] Comment on above: Performed By: #### C BCD #### [facility] [address] [address] ABS BASO 0.05 K/UL Normal 0.00-0.22 [facility] Comment on above: Performed By: #### C BCD #### [address] [address] ABS EOS 0.04 K/UL Normal 0-0.45 [facility] Comment on above: Performed By: #### C BCD #### [facility] [address] [address] ABS NEUTROPHILS 1.76 K/UL Normal 1.5-8.0 [facility] Comment on above: Performed By: #### C BCD #### [facility] [address] [address] ABS.NEUT.CALCULATED 1.76 K/UL [facility] Comment on above: Result Comment: Perf ormed at [address] [address] Performed By: #### C BCD #### [address] [address] Basophils/100 WBC (Bld) 1.20 % High 0-1 [facility] Comment on above: Performed By: #### C BCD #### [address] [place] [address] DIFF TYPE AUTO DIFF Normal [facility] Comment on above: Performed By: #### C BCD #### [address] [place] [address] Eosinophils/100 WBC (Bld) 1.00 % Normal 0-3 [facility] Comment on above: Performed By: #### C BCD #### [address] [facility] [address] Erythrocyte distribution width (RBC) [Ratio] 12.4 % Normal 11.7-15.0 [facility] Comment on above: Performed By: #### C BCD #### [address] [place] [address] Hematocrit (Bld) [Volume fraction] 40.3 % Normal 36-44 [facility] Comment on above: Performed By: #### C BCD #### [address] [place] [address] Hemoglobin (Bld) [Mass/Vol] 12.7 g/dL Normal 12.0-15.0 [facility] Comment on above: Performed By: #### C BCD #### [address] [place] [address] Lymphocytes (Bld) [#/Vol] 1.84 10*3/uL Normal 1.2-3.2 [facility] Comment on above: Performed By: #### C BCD #### [address] [place] [address] Lymphocytes/100 WBC (Bld) 44.30 % High 20-40 [facility] Comment on above: Performed By: #### C BCD #### [address] [place] [address] MCH (RBC) [Entitic mass] 29.5 pg Normal 26-34 [facility] Comment on above: Performed By: #### C BCD #### [address] [place] [address] MCHC 31.5 % Normal 31-37 [facility] Comment on above: Performed By: #### C BCD #### [facility] [address] [address] [place] [address] MCV (RBC) [Entitic vol] 93.7 fL Normal 80-100 [facility] Comment on above: Performed By: #### C BCD #### [facility] [address] [address] [place] [address] MEAN PLT VOL 11.0 CU Normal 7.0-12.6 [facility] Comment on above: Performed By: #### C BCD #### [facility] [address] [address] [place] [address] Monocytes (Bld) [#/Vol] 0.45 10*3/uL Normal 0-0.8 [facility] Comment on above: Performed By: #### C BCD #### [address] [address] [place] [address] Monocytes/100 WBC (Bld) 10.80 % High 0-8 [facility] Comment on above: Performed By: #### C BCD #### [address] [address] [place] [address] Neutrophils/100 WBC (Bld) 0.20 % Normal 0.0-1.0 [facility] Comment on above: Performed By: #### C BCD #### [address] [address] [place] [address] Neutrophils/100 WBC (Bld) 42.50 % Low 50-70 [facility] Comment on above: Performed By: #### C BCD #### [facility] [address] [address] [place] [address] NRBC'S 0 /100 WBC Normal 0 [facility] Comment on above: Performed By: #### C BCD #### [facility] [address] [address] [place] [address] Platelets (Bld) [#/Vol] 234 10*3/uL Normal 150-450 [facility] Comment on above: Performed By: #### C BCD #### [facility] [address] [place] [address] RBC (Bld) [#/Vol] 4.30 10*6/uL Normal 4.0-4.9 [facility] Comment on above: Performed By: #### C BCD #### [facility] [address] [address] [place] [address] RDW-SD 42.7 FL Normal 37.0-54.0 [facility] Comment on above: Performed By: #### C BCD #### [facility] [address] [address] [place] [address] WBC (Bld) [#/Vol] 4.2 10*3/uL Low 4.5-11.0 [facility] Comment on above: Performed By: #### C BCD #### [facility] [address] [address] [place] [address] COMPREHENSIVE METABOLIC PANE [facility] 12-25-2020 Albumin [Mass/Vol] 4.8 g/dL Normal 3.5-5.0 [facility] Comment on above: Performed By: #### C STATIONARY ENGINEER REFRIGERATION ####[facility] LaboratoryUtke [place] [address] [facility] [place] [address] Albumin/Globulin [Mass ratio] 1.8 {ratio} Normal 1.5-3.0 [facility] Comment on above: Performed By: #### C STATIONARY ENGINEER REFRIGERATION ####[facility] LaboratoryUtke Qsyn[address] [place] [address] ALP [Catalytic activity/Vol] 73 U/L Normal 35-125 [facility] Comment on above: Performed By: #### C STATIONARY ENGINEER REFRIGERATION ####[facility] LaboratoryUtke Iogi[address]284 [place] [address] ALT [Catalytic activity/Vol] 12 U/L Normal 5-40 [facility] Comment on above: Performed By: #### C STATIONARY ENGINEER REFRIGERATION ####[facility] LaboratoryLake Fnve[address] [place] [address] Anion gap [Moles/Vol] 13 mmol/L Normal 0-19 [facility] Comment on above: Performed By: #### C STATIONARY ENGINEER REFRIGERATION ####[facility] LaboratoryLake Dcek[address] [place] [address] AST [Catalytic activity/Vol] 23 U/L Normal 5-40 [facility] Comment on above: Performed By: #### C STATIONARY ENGINEER REFRIGERATION ####Main LaboratoryLake Ikgb[address] [place] [address] Bilirubin [Mass/Vol] 0.6 mg/dL Normal 0.1-1.2 [facility] Comment on above: Performed By: #### C STATIONARY ENGINEER REFRIGERATION ####Main LaboratoryLake Uims[address]33 [place] [address] Calcium [Mass/Vol] 9.7 mg/dL Normal 8.5-10.4 [facility] Comment on above: Performed By: #### C STATIONARY ENGINEER REFRIGERATION ####Main LaboratoryLake Yrwn[address]63 [place] [address] Chloride [Moles/Vol] 105 mmol/L Normal 97-107 [facility] Comment on above: Performed By: #### C STATIONARY ENGINEER REFRIGERATION ####John LaboratoryLaVoicebase Xxpv[address] [place] [address] CO2 [Moles/Vol] 25 mmol/L Normal 24-31 [facility] Comment on above: Performed By: #### C STATIONARY ENGINEER REFRIGERATION ####Main LaboratoryLake Tcok[address] [place] [address] Creatinine [Mass/Vol] 0.9 mg/dL Normal 0.4-1.6 [facility] Comment on above: Performed By: #### C STATIONARY ENGINEER REFRIGERATION ####Main LaboratoryLake Lwme[address]27 [place] [address] ESTIMATED GFR 86 mL/min/1.73 m2 Normal [facility] Comment on above: Result Comment: GFR ml/min/1.73m2 Stage ----- 90 1 60-89 2 30-59 3 15-29 4 <15 5 For -Americans, multiply EGFR result by 1.210 Calculation not validated for patients under 18 years of age. Performed at [facility] [address] [facility] [place] [address] Performed By: #### C STATIONARY ENGINEER REFRIGERATION ####Main LaboratoryLake Acdv[address] [place] [address] Globulin (S) [Mass/Vol] 2.7 g/dL Normal 1.9-3.7 [facility] Comment on above: Performed By: #### C STATIONARY ENGINEER REFRIGERATION ####[facility] LaboratoryLake Gydz[address]4828 [place] [address] Glucose [Mass/Vol] 82 mg/dL Normal 65-99 [facility] Comment on above: Performed By: #### C STATIONARY ENGINEER REFRIGERATION ####[facility] LaboratoryLake Bpti[address] [place] [address] Potassium [Moles/Vol] 4.1 mmol/L Normal 3.4-5.1 [facility] Comment on above: Performed By: #### C STATIONARY ENGINEER REFRIGERATION ####[facility] LaboratoryUtke Yzcr[address] [place] [address] Protein [Mass/Vol] 7.5 g/dL Normal 5.9-7.9 [facility] Comment on above: Performed By: #### C STATIONARY ENGINEER REFRIGERATION ####[facility] LaboratoryUtke Yyet[address] [place] [address] Sodium [Moles/Vol] 142 mmol/L Normal 133-145 [facility] Comment on above: Performed By: #### C STATIONARY ENGINEER REFRIGERATION ####[facility] LaboratorySouthern [facility] Center[address] [place] [address] Urea nitrogen [Mass/Vol] 8 mg/dL Normal 8-25 [facility] Comment on above: Performed By: #### C STATIONARY ENGINEER REFRIGERATION ####[facility] LaboratoryUtke Qivt38061 [place] [address] Urea nitrogen/Creatinine [Mass ratio] 8.9 mg/mg Normal 8-21 [facility] Comment on above: Performed By: #### C STATIONARY ENGINEER REFRIGERATION ####[facility] LaboratoryUtke Murw[address] [place] [address] FERRITINon 12-25-2020 Ferritin [Mass/Vol] 47 ng/mL Normal 13-150 [facility] Comment on above: Result Comment: Perf ormed at [facility] [address] [place] [address] Performed By: #### F ER #### [facility] [place] [address] [place] [address] LIPID PANELon 12-25-2020 CHOL HDL RATIO 2.1 RATIO Normal [facility] Comment on above: Result Comment: Acco rding to the [place] [employer], the goal is to maintain the total cholesterol/HDL ratio at 5-to-1 or lower with an optimum ratio of 3.5-to-1. Performed at [address] [place] [address] Performed By: #### L IPD #### [address] [address] Cholesterol [Mass/Vol] 129 mg/dL Normal 115-170 [facility] Comment on above: Performed By: #### L IPD #### [address] [address] Cholesterol in HDL [Mass/Vol] 62 mg/dL Normal >50 [facility] Comment on above: Result Comment: [employer] onal Cholesterol Education Program(NCFP)guidelines: <40 mg/dl:Low HDL-cholesterol(major risk factor for CHD) >60 mg/dl:High HDL-cholesterol(negativerisk factor for CHD) HDL-cholesterol is affected by a number of factors,e.g.,smoking, exercise,hormones,sex and age. Performed By: #### L IPD #### [address] [address] Cholesterol in LDL [Mass/Vol] 57 mg/dL Low 65-130 [facility] Comment on above: Performed By: #### L IPD #### [address] [address] SERUM CLARITY CLEAR [facility] Comment on above: Performed By: #### L IPD #### [address] [address] TRIGLYCERIDE G.B. 51 MG/DL Normal 40-150 [facility] Comment on above: Performed By: #### L IPD #### [address] [address] PT. PREPARATION FASTING [facility] Comment on above: Performed By: #### L IPD #### [address] [address] SERUM COLOR YELLOW [facility] Comment on above: Performed By: #### L IPD #### [address] [address] BASIC METABOLIC PANELon 05-2 Anion gap [Moles/Vol] 8 mmol/L Normal 0-19 [facility] Comment on above: Performed By: #### B MP #### [place] [address], [place] [address] Calcium [Mass/Vol] 9.8 mg/dL Normal 8.5-10.4 [facility] Comment on above: Performed By: #### B MP #### [place] [address], [place] [address] Chloride [Moles/Vol] 101 mmol/L Normal 97-107 [facility] Comment on above: Performed By: #### B MP #### [place] [address], [place] [address] CO2 [Moles/Vol] 28 mmol/L Normal 24-31 [facility] Comment on above: Performed By: #### B MP #### [facility] [address], [place] [address] Creatinine [Mass/Vol] 0.8 mg/dL Normal 0.4-1.6 [facility] Comment on above: Performed By: #### B MP #### [facility] [address], [place] [address] ESTIMATED GFR 98 mL/min/1.73 m2 Normal [facility] Comment on above: Result Comment: GFR ml/min/1.73m2 Stage ----- 90 1 60-89 2 30-59 3 15-29 4 <15 5 For -Americans, multiply EGFR result by 1.210 Calculation not validated for patients under 18 years of age. Performed at [facility] [address] [place] [address] Performed By: #### B MP #### [facility] [address], [place] [address] Glucose [Mass/Vol] 89 mg/dL Normal 65-99 [facility] Comment on above: Performed By: #### B MP #### [facility] [address], [place] [address] Potassium [Moles/Vol] 3.6 mmol/L Normal 3.4-5.1 [facility] Comment on above: Performed By: #### B MP #### [facility] [address], [facility] [place] [address] Sodium [Moles/Vol] 137 mmol/L Normal 133-145 [facility] Comment on above: Performed By: #### B MP #### [place] [address], [facility] [address] Urea nitrogen [Mass/Vol] 11 mg/dL Normal 8-25 [facility] Comment on above: Performed By: #### B MP #### [place] [address], [facility] [place] [address] Urea nitrogen/Creatinine [Mass ratio] 13.8 mg/mg Normal 8-21 [facility] Comment on above: Performed By: #### B MP #### [facility] [address], [place] [address] CBC with Diffon 10-11-2020 AB IMMATURE NEUT 0.02 K/UL Normal 0.0-0.1 [facility] Comment on above: Performed By: #### C BCD ####[address],[facility] [address] ABS BASO 0.05 K/UL Normal 0.00-0.22 [facility] Comment on above: Performed By: #### C BCD ####[address],[place] [address] ABS EOS 0.02 K/UL Normal 0-0.45 [facility] Comment on above: Performed By: #### C BCD ####[address],[place] [address] ABS NEUTROPHILS 5.36 K/UL Normal 1.5-8.0 [facility] Comment on above: Performed By: #### C BCD ####[address],[place] [address] ABS.NEUT.CALCULATED 5.36 K/UL Normal [facility] Comment on above: Result Comment: Perf ormed at [facility] [address] [place] [address] Performed By: #### C BCD ####[address],[facility] [address] Basophils/100 WBC (Bld) 0.60 % Normal 0-1 [facility] Comment on above: Performed By: #### C BCD ####[address],[facility] [place] [address] DIFF TYPE AUTO DIFF Normal [facility] Comment on above: Performed By: #### C BCD ####[address],[place] [address] Eosinophils/100 WBC (Bld) 0.30 % Normal 0-3 [facility] Comment on above: Performed By: #### C BCD ####[address],[place] [address] Erythrocyte distribution width (RBC) [Ratio] 12.0 % Normal 11.7-15.0 [facility] Comment on above: Performed By: #### C BCD ####[address],[place] [address] Hematocrit (Bld) [Volume fraction] 40.3 % Normal 36-44 [facility] Comment on above: Performed By: #### C BCD ####[address],[place] [address] Hemoglobin (Bld) [Mass/Vol] 13.3 g/dL Normal 12.0-15.0 [facility] Comment on above: Performed By: #### C BCD ####[address],[place] [address] Lymphocytes (Bld) [#/Vol] 1.90 10*3/uL Normal 1.2-3.2 [facility] Comment on above: Performed By: #### C BCD ####[address],[place] [address] Lymphocytes/100 WBC (Bld) 24.10 % Normal 20-40 [facility] Comment on above: Performed By: #### C BCD ####[address],[place] [address] MCH (RBC) [Entitic mass] 29.6 pg Normal 26-34 [facility] Comment on above: Performed By: #### C BCD ####[address],[place] [address] MCHC 33.0 % Normal 31-37 [facility] Comment on above: Performed By: #### C BCD ####[address],[place] [address] MCV (RBC) [Entitic vol] 89.6 fL Normal 80-100 [facility] Comment on above: Performed By: #### C BCD ####[address],[place] [address] MEAN PLT VOL 9.9 CU Normal 7.0-12.6 [facility] Comment on above: Performed By: #### C BCD ####[address],[place] [address] Monocytes (Bld) [#/Vol] 0.54 10*3/uL Normal 0-0.8 [facility] Comment on above: Performed By: #### C BCD ####[address],[place] [address] Monocytes/100 WBC (Bld) 6.80 % Normal 0-8 [facility] Comment on above: Performed By: #### C BCD ####[address],[place] [address] Neutrophils/100 WBC (Bld) 0.30 % Normal 0.0-1.0 [facility] Comment on above: Performed By: #### C BCD ####[address],[place] [address] Neutrophils/100 WBC (Bld) 67.90 % Normal 50-70 [facility] Comment on above: Performed By: #### C BCD ####[address],[place] [address] NRBC'S 0 /100 WBC Normal 0 [facility] Comment on above: Performed By: #### C BCD ####[address],[place] [address] Platelets (Bld) [#/Vol] 207 10*3/uL Normal 150-450 [facility] Comment on above: Performed By: #### C BCD ####[address],[place] [address] RBC (Bld) [#/Vol] 4.50 10*6/uL Normal 4.0-4.9 [facility] Comment on above: Performed By: #### C BCD ####[address],[place] [address] RDW-SD 39.5 FL Normal 37.0-54.0 [facility] Comment on above: Performed By: #### C BCD ####[address],[place] [address] WBC (Bld) [#/Vol] 7.9 10*3/uL Normal 4.5-11.0 [facility] Comment on above: Performed By: #### C BCD ####[address] [place] [address] EKGon 10-11-2020 Electrocardiogram EKG Ventricular Rate : 66 BPM Atrial Rate : 66 BPM P-R Interval : 134 ms QRS Duration : 78 ms Q-T Interval : 406 ms QTC Calculation(Bazett) : 425 ms Calculated P [place] : 39 degrees Calculated R [place] : 43 degrees Calculated T [place] : 34 degrees Diagnosis:Normal sinus rhythm with sinus arrhythmia Normal ECG When compared with ECG of 11-OCT-2020 16:31, No significant change was found Confirmed by RAJEEV MINAYA ([id number]) on 10/12/2020 3:20:10 PM Normal [facility] FREE T4on 10-11-2020 Free T4 [Mass/Vol] 1.1 ng/dL Normal 0.9-1.7 [facility] Comment on above: Result Comment: Perf ormed at [facility] [address] [place] [address] Performed By: #### T 4F #### [facility] [address] [place] [address] HCG QUALITATIVEon 10-11-2020 HCG QUALITATIVE Normal NEG [facility] Comment on above: Result Comment: NEGA TIVE Performed at [facility] [address] [place] [address] Performed By: #### P REG #### [facility] [address] [place] [address] MAGNESIUMon 10-11-2020 Magnesium [Mass/Vol] 2.1 mg/dL Normal 1.6-3.1 [facility] Comment on above: Result Comment: Perf ormed at [facility] [address] [place] [address] Performed By: #### M G #### [facility] [address] [place] [address] TSHon 10-11-2020 TSH 1.04 MIU/L Normal 0.27-4.20 [facility] Comment on above: Result Comment: Perf ormed at [address] [address] Performed By: #### T SHR #### [place] [id number] [facility], [place] [address] PROGRESSon 03-25-2017 PROGRESS HNO ID: [id number]: Billy Eason: (none)Author Type: PhysicianType: Progress NotesFiled: 03/25/2017 4:55 PMNote Text:17yo F w/out sig PMH presenting w/ laceration of the (L) ring finger thatoccurred just prior to arrival. 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 She has a mild laceration, buthas not been able to stop the bleeding. No nail injury. Zvtjyhvgx-gq-canxYX 104/62 Pulse 62 Temp 36.7 ?C (98.1 ?F) (Oral) Resp 14 SpO2 98%Gen: NAD, alertExt: Small laceration, ~5mm, finger pad of (L) 4th finger with activebleeding. Bleeding stopped with pressure, but resume when the lacerationwas manipulated.Procedure: Informed consent obtained. Wound irrigated and explored andfound to extend only to subcutaneous fat. Area prepped w/ alcohol.SureClose tissue adhesive was used to repair the wound. Hemostasis wasobtained and there were no complications.ASSESSMENT /PLAN:1. Laceration of left ring finger without foreign body without damage tonail, initial encounter - ICD9: 883.0, ICD10: S61.215ATissue adhesive repairTetanus kf-gm-pxijCighyc for signs of infection: Increasing redness, swelling, pain,drainage or for feversBilly Turcios MD [facility] CNOVon 03-24-2017 CNOV Office Visit (URGCMA) Sergey GORDON ([id number]) 01 FDate Time Provider Pirplchwkw04/7/17 1:30 PM BILLY TURCIOS URGA During your visit today, we recorded the following information about you: Temperature Pulse Respiration Blood pressure 98.1 degrees 62/minute 14/minute 104/62Teresa Vaughn Ma 03/25/2017 4:55 PM SignedGurpreet Gordon is a 17 year old female Patient presents with:Finger Injury: x 1 hour pt cut left ring finger with knife, actively bleedingHEALTH MAINTENANCE DUEThere are no preventive care reminders to display for this patient.ORDERS PENDED: NoHave you had any major changes in your health since your last visit to thisoffice? NoHave you had any surgeries since your last visit to this office? NoHave you been hospitalized since your last visit to this office? Brittany Turcios MD 03/25/2017 4:55 PM Hlteva67ro F w/out sig PMH presenting w/ laceration of the (L) ring finger thatoccurred just prior to arrival. She was cutting an apple in her home ec classand nicked the tip of the finger. She has a mild laceration, but has not beenable to stop the bleeding. No nail injury. Tetanus ab-ds-exooXP 104/62 Pulse 62 Temp 36.7 ?C (98.1 ?F) (Oral) Resp 14 SpO2 98%Gen: NAD, alertExt: Small laceration, ~5mm, finger pad of (L) 4th finger with active bleeding. Bleeding stopped with pressure, but resume when the laceration was manipulated.Procedure: Informed consent obtained. Wound irrigated and explored and foundto extend only to subcutaneous fat. Area prepped w/ alcohol. SureClose tissueadhesive was used to repair the wound. Hemostasis was obtained and there wereno complications.ASSESSMENT /PLAN:1. Laceration of left ring finger without foreign body without damage to nail,initial encounter - ICD9: 883.0, ICD10: S61.215ATissue adhesive repairTetanus wm-qh-vszoFbzram for signs of infection: Increasing redness, swelling, pain, drainage orfor feversNormABEL Hudsoneferring Provider: SELF [200]Allergies As of Date: 03/24/2017 Noted Allergy ReactionPENICILLIN 03/24/2017 2 - RashDate Reviewed: 03/24/2017Reviewed by: Teresa Vaughn Ma - Fully AssessedReason for Visit: Finger Injury [2772] Cmt: x 1 hour pt cut left ring finger with knife, actively bleedingPrimary Visit Diagnosis:Laceration of left ring finger without foreign body without damage to nail, initial encounter [O85.857N]Problem List As Of Date: 03/24/2017(None)Encounte r Number: [id number] Status:Closed by BILLY TURCIOS MD on 03/25/17 Normal [facility] PROGRESSon 03-24-2017 PROGRESS HNO ID: [id number]: Teresa Vaughn MaService: (none)Author Type: (none)Type: Progress NotesFiled: 03/25/2017 4:55 PMNote Text:Gurpreet Gordon is a 17 year old female Patient presents with:Finger Injury: x 1 hour pt cut left ring finger with knife, activelybleedingHEALTH MAINTENANCE DUEThere are no preventive care reminders to display for this patient.ORDERS PENDED: NoHave you had any major changes in your health since your last visit tothis office? NoHave you had any surgeries since your last visit to this office? NoHave you been hospitalized since your last visit to this office? No Normal [facility] Vital Signs Date Time Vital Sign Value Performing Clinician Leticiai jagdish 11-30-2024 09:28-0400 Body height 157.[address] Padmini Duenas MD Work Phone: [facility] 11-30-2024 09:28-0400 Body mass index (BMI) [Ratio] 23.1 kg/m2 Dr. Padmini Duenas MD Work Phone: [facility] 11-30-2024 09:28-0400 Body weight 57.[address] Padmini Duenas MD Work Phone: [facility] 11-30-2024 09:28-0400 Diastolic blood pressure 73 mm[Hg] Dr. Padmini Duenas MD Work Phone: [facility] 11-30-2024 09:28-0400 Systolic blood pressure 111 mm[Hg] Dr. Padmini Duenas MD Work Phone: [facility] 11-28-2024 08:21-0400 Body height 157.[address] Padmini Duenas MD Work Phone: 9(563)495-693614 [place] [address] 11-28-2024 08:21-0400 Body mass index (BMI) [Ratio] 23.1 kg/m2 Dr. Padmini Duenas MD Work Phone: 5(101)562-271014 [place] [address] 11-28-2024 08:21-0400 Body weight 57.[address] Padmini Duenas MD Work Phone: 4(908)116-693814 [place] [address] 11-28-2024 08:21-0400 Diastolic blood pressure 74 mm[Hg] Dr. Padmini Duenas MD Work Phone: 6(324)609-999214 [place] [address] 11-28-2024 08:21-0400 Systolic blood pressure 126 mm[Hg] Dr. Padmini Duenas MD Work Phone: 6(924)620-742114 [place] [address] 11-21-2024 10:10-0400 Body height 157.[address] Padmini Duenas MD Work Phone: 2(585)984-164214 [place] [address] 11-21-2024 10:10-0400 Body mass index (BMI) [Ratio] 23.3 kg/m2 Dr. Padmini Duenas MD Work Phone: 9(666)658-17[address] [place] [address] 11-21-2024 10:10-0400 Body weight 57.[address] Padmini Duenas MD Work Phone: 9(418)099-631114 [place] [address] 11-21-2024 10:10-0400 Diastolic blood pressure 66 mm[Hg] Dr. Padmini Duenas MD Work Phone: 5(213)645-901614 [place] [address] 11-21-2024 10:10-0400 Systolic blood pressure 108 mm[Hg] Dr. Padmini Duenas MD Work Phone: 9(073)837-070714 [place] [address] 11-14-2024 08:52-0400 Body height 157.[address] Padmini Duenas MD Work Phone: 6(442)963-528914 [place] [address] 11-14-2024 08:52-0400 Body mass index (BMI) [Ratio] 0.9 kg/m2 Dr. Padmini Duenas MD Work Phone: [facility] 11-14-2024 08:52-0400 Body weight 2.[address] Padmini Duenas MD Work Phone: [facility] 11-14-2024 08:52-0400 Diastolic blood pressure 72 mm[Hg] Dr. Padmini Duenas MD Work Phone: 6(639)193-296914 [place] [address] 11-14-2024 08:52-0400 Systolic blood pressure 113 mm[Hg] Dr. Padmini Duenas MD Work Phone: 9(642)978-901414 [place] [address] 11-07-2024 13:54-0400 Body height 157.[address] Padmini Duenas MD Work Phone: 1(914)860-543514 [place] [address] 11-07-2024 13:54-0400 Body mass index (BMI) [Ratio] 23.2 kg/m2 Dr. Padmini Duenas MD Work Phone: 9(913)591-592514 [place] [address] 11-07-2024 13:54-0400 Body weight 57.[address] Padmini Duenas MD Work Phone: 6(235)585-227614 [place] [address] 11-07-2024 13:54-0400 Diastolic blood pressure 68 mm[Hg] Dr. Padmini Duenas MD Work Phone: 2(427)948-093914 [place] [address] 11-07-2024 13:54-0400 Systolic blood pressure 110 mm[Hg] Dr. Padmini Duenas MD Work Phone: 3(921)073-280814 [place] [address] 11-01-2024 10:58-0400 Body height 157.[address] Padmini Duenas MD Work Phone: 6(052)278-478414 [place] [address] 11-01-2024 10:58-0400 Body mass index (BMI) [Ratio] 23 kg/m2 Dr. Padmini Duenas MD Work Phone: 8(573)086-031114 [place] [address] 11-01-2024 10:58-0400 Body weight 57.[address] Padmini Duenas MD Work Phone: 2(204)052-212114 [place] [address] 11-01-2024 10:19-0400 Body temperature 98 [degF] Dr. Padmini Duenas MD Work Phone: 1(838)949-986014 [place] [address] 11-01-2024 10:19-0400 Diastolic blood pressure 73 mm[Hg] Dr. Padmini Duenas MD Work Phone: 0(071)919-709014 [place] [address] 11-01-2024 10:19-0400 Heart rate 53 /min Dr. Padmini Duenas MD Work Phone: 9(997)437-851614 [place] [address] 11-01-2024 10:19-0400 Respiratory rate 12 /min Dr. Padmini Duenas MD Work Phone: 8(727)066-269714 [place] [address] 11-01-2024 10:19-0400 SaO2% (BldA) [Mass fraction] 100 % Dr. Padmini Duenas MD Work Phone: 8(187)663-193814 [place] [address] 11-01-2024 10:19-0400 Systolic blood pressure 108 mm[Hg] Dr. Padmini Duenas MD Work Phone: 2(151)938-571614 [place] [address] 10-27-2024 09:06-0400 Body height 160.[address] Padmini Duenas MD Work Phone: 5(886)193-169314 [place] [address] 10-27-2024 09:02-0400 Body mass index (BMI) [Ratio] 22.5 kg/m2 Dr. Padmini Duenas MD Work Phone: 5(752)915-042614 [place] [address] 10-27-2024 09:02-0400 Body weight 57.[address] Padmini Duenas MD Work Phone: [facility] 10-27-2024 09:02-0400 Diastolic blood pressure 71 mm[Hg] Dr. Padmini Duenas MD Work Phone: 5(279)703-617814 [place] [address] 10-27-2024 09:02-0400 Systolic blood pressure 115 mm[Hg] Dr. Padmini Duenas MD Work Phone: 6(736)055-840914 [place] [address] 10-13-2024 09:46-0400 Body height 160.[address] Padmini Duenas MD Work Phone: 8(816)902-736314 [place] [address] 10-13-2024 09:43-0400 Body mass index (BMI) [Ratio] 22.3 kg/m2 Dr. Padmini Duenas MD Work Phone: [facility] 10-13-2024 09:43-0400 Body weight 57.[address] Padmini Duenas MD Work Phone: 0(594)848-062414 [place] [address] 10-13-2024 09:43-0400 Diastolic blood pressure 72 mm[Hg] Dr. Padmini Duenas MD Work Phone: 5(273)135-671014 [place] [address] 10-13-2024 09:43-0400 Systolic blood pressure 111 mm[Hg] Dr. Padmini Duenas MD Work Phone: 8(643)284-491914 [place] [address] 09-28-2024 11:19-0400 Body height 160.[address] Padmini Duenas MD Work Phone: 2(377)673-347614 [place] [address] 09-28-2024 11:19-0400 Body mass index (BMI) [Ratio] 22.7 kg/m2 Dr. Padmini Duenas MD Work Phone: 8(217)867-884514 [place] [address] 09-28-2024 11:19-0400 Body weight 58.[address] Padmini Duenas MD Work Phone: 0(699)166-269614 [place] [address] 09-28-2024 11:19-0400 Diastolic blood pressure 70 mm[Hg] Dr. Padmini Duenas MD Work Phone: 5(873)315-349114 [place] [address] 09-28-2024 11:19-0400 Systolic blood pressure 106 mm[Hg] Dr. Padmini Duenas MD Work Phone: 9(225)419-648914 [place] [address] 09-16-2024 09:31-0400 Body height 160.[address] Padmini Duenas MD Work Phone: 8(358)129-297514 [place] [address] 09-16-2024 09:27-0400 Body mass index (BMI) [Ratio] 22.6 kg/m2 Dr. Padmini Duenas MD Work Phone: 8(464)335-639014 [place] [address] 09-16-2024 09:27-0400 Body weight 57.[address] Padmini Duenas MD Work Phone: [facility] 09-16-2024 09:27-0400 Diastolic blood pressure 72 mm[Hg] Dr. Padmini Duenas MD Work Phone: [facility] 09-16-2024 09:27-0400 Systolic blood pressure 107 mm[Hg] Dr. Padmini Duenas MD Work Phone: 2(320)304-131214 [place] [address] 09-10-2024 13:35-0400 Body mass index (BMI) [Ratio] 23.1 kg/m2 Dr. Padmini Duenas MD Work Phone: 5(397)914-021114 [place] [address] 09-10-2024 13:35-0400 Body temperature 97.7 [degF] Dr. Padmini Duenas MD Work Phone: 7(972)008-129414 [place] [address] 09-10-2024 13:35-0400 Body weight 59.[address] Padmini Duenas MD Work Phone: 6(497)187-455814 [place] [address] 09-10-2024 13:35-0400 Diastolic blood pressure 64 mm[Hg] Dr. Padmini Duenas MD Work Phone: 3(536)760-001114 [place] [address] 09-10-2024 13:35-0400 Heart rate 51 /min Dr. Padmini Duenas MD Work Phone: 1(043)687-283314 [place] [address] 09-10-2024 13:35-0400 SaO2% (BldA) [Mass fraction] 99 % Dr. Padmini Duenas MD Work Phone: 0(109)512-726714 [place] [address] 09-10-2024 13:35-0400 Systolic blood pressure 102 mm[Hg] Dr. Padmini Duenas MD Work Phone: 7(810)830-300614 [place] [address] 08-31-2024 10:25-0400 Body mass index (BMI) [Ratio] 23.1 kg/m2 Dr. Padmini Duenas MD Work Phone: 3(290)132-651414 [place] [address] 08-31-2024 10:25-0400 Body weight 59.[address] Padmini Duenas MD Work Phone: [facility] 08-31-2024 10:25-0400 Diastolic blood pressure 70 mm[Hg] Dr. Padmini Duenas MD Work Phone: 9(472)917-240214 [place] [address] 08-31-2024 10:25-0400 Systolic blood pressure 109 mm[Hg] Dr. Padmini Duenas MD Work Phone: 7(239)127-953314 [place] [address] 08-04-2024 08:44-0400 Body mass index (BMI) [Ratio] 22.6 kg/m2 Dr. Padmini Duenas MD Work Phone: 6(321)080-066514 [place] [address] 08-04-2024 08:44-0400 Body weight 58.[address] Padmini Duenas MD Work Phone: 5(797)716-459014 [place] [address] 08-04-2024 08:44-0400 Diastolic blood pressure 70 mm[Hg] Dr. Padmini Duenas MD Work Phone: 0(938)152-460114 [place] [address] 08-04-2024 08:44-0400 Systolic blood pressure 113 mm[Hg] Dr. Padmini Duenas MD Work Phone: 1(572)960-562114 [place] [address] 07-07-2024 11:32-0500 Body mass index (BMI) [Ratio] 22.3 kg/m2 Dr. Padmini Duenas MD Work Phone: 8(886)296-867214 [place] [address] 07-07-2024 11:32-0500 Body weight 57.[address] Padmini Duenas MD Work Phone: 1(440)329-073414 [place] [address] 07-07-2024 11:32-0500 Diastolic blood pressure 72 mm[Hg] Dr. Padmini Duenas MD Work Phone: 1(283)767-739714 [place] [address] 07-07-2024 11:32-0500 Systolic blood pressure 108 mm[Hg] Dr. Padmini Duenas MD Work Phone: 7(955)821-287314 [place] [address] 06-07-2024 14:46-0500 Body mass index (BMI) [Ratio] 21.1 kg/m2 Dr. Padmini Duenas MD Work Phone: [facility] 06-07-2024 14:46-0500 Body weight 54.[address] Padmini Duenas MD Work Phone: [facility] 06-07-2024 14:46-0500 Diastolic blood pressure 78 mm[Hg] Dr. Padmini Duenas MD Work Phone: [facility] 06-07-2024 14:46-0500 Systolic blood pressure 122 mm[Hg] Dr. Padmini Duenas MD Work Phone: [facility] 02-01-2024 13:05-0400 Body height 158.75 cm Milla Garsia PA-C Work Phone: [facility] [employer] [facility] 02-01-2024 13:05-0400 Body mass index (BMI) [Ratio] 21.24 kg/m2 Milla Garsia PA-C Work Phone: [email or web address]; [employer] [facility] 02-01-2024 13:05-0400 Body surface area Derived from formula 1.54 m2 Milla Garsia PA-C Work Phone: [email or web address]; [employer] [facility] 02-01-2024 13:05-0400 Body temperature 98.5 [degF] Milla Garsia PA-C Work Phone: [email or web address]; [employer]. Comment on above: Method: Tympanic 02-01-2024 13:05-0400 Body weight 53.52 kg Milla Garsia PA-C Work Phone: [email or web address]; [employer] 02-01-2024 13:05-0400 Diastolic blood pressure 65 mm[Hg] Milla Garsia PA-C Work Phone: [email or web address]; [employer]. Comment on above: Patient Position: Sitting; Cuff Location : Left Arm; Cuff Size: Standard 02-01-2024 13:05-0400 Heart rate 52 /min Milla Garsia PA-C Work Phone: [facility] [facility] [employer]. Comment on above: Pattern: Regular 02-01-2024 13:05-0400 Systolic blood pressure 105 mm[Hg] Milla Ady PA-C Work Phone: [facility] [employer] [employer]. Comment on above: Patient Position: Sitting; Cuff Location : Left Arm; Cuff Size: Standard Encounters Encounter Date Encounter Type Care Provider Facility Start: 11-30-2024 End: 11-30-2024 ambulatory No Primary Care Physician Facility:[facility] Start: 11-30-2024 End: 11-30-[address] Padmini Duenas MD -[facility] Work Phone: Start: 11-28-2024 End: 11-28-[address] Padmini Duenas MD -[facility] Work Phone: Start: 11-28-2024 End: 11-28-[address] Padmini Duenas MD Work Phone: -[facility] Start: 11-24-2024 End: 11-24-[address] [facility] Start: 11-21-2024 End: 11-21-[address] Padmini Duenas MD Work Phone: -Laboratory Specimen Start: 11-21-2024 End: 11-21-2024 Patient encounter procedure Roselyn Cotto CNM -Laboratory Specimen Work Phone: Start: 11-21-2024 End: 11-21-2024 Patient encounter procedure Roselyn Cotto CNM -[facility] Work Phone: Start: 11-21-2024 End: 11-21-[address] Padmini Duenas MD Work Phone: -[facility] Start: 11-21-2024 End: 11-21-2024 ambulatory No Primary Care Physician Facility:[facility] Start: 11-17-2024 End: 11-17-2024 ambulatory MD [facility] Start: 11-14-2024 End: 11-14-[address] Melia Elizabeth DO -[facility] Work Phone: Start: 11-14-2024 End: 11-14-[address] Padmini Duenas MD Work Phone: [facility] Start: 11-10-2024 End: 11-10-2024 ambulatory [place] Mignon RISHI [facility] Start: 11-07-2024 End: 11-07-2024 Patient encounter procedure Micheal MEYERS -[facility] Work Phone: Start: 11-07-2024 End: 11-07-[address] Padmini Duenas MD Work Phone: [facility] Work Phone: Start: 11-03-2024 End: 11-03-2024 ambulatory COREY Whiting [facility] Start: 11-01-2024 ambulatory Melia Rodriguez cility:[facility] Start: 11-01-2024 Non-patient / Non-visit Dr. Melia Elizabeth DO [facility] Start: 11-01-2024 End: 11-01-[address] Padmini Duenas MD Work Phone: [facility] Work Phone: Start: 11-01-2024 End: 11-01-[address] Melia Elizabeth DO -[facility] Work Phone: Start: 10-27-2024 End: 10-27-2024 Patient encounter procedure Roselyn Cotto CNM -[facility] Work Phone: Start: 10-27-2024 End: 10-27-[address] Padmini Duenas MD Work Phone: [facility] Work Phone: Start: 10-13-2024 End: 10-13-[address] Padmini Duenas MD -[facility] Work Phone: Start: 10-13-2024 End: 10-13-[address] Padmini Duenas MD Work Phone: [facility] Work Phone: Start: 10-06-2024 End: 10-06-2024 ambulatory MAULIKJASON PELAYO [facility] Start: 09-28-2024 End: 09-28-2024 Patient encounter procedure Micheal MEYERS -[facility] Work Phone: Start: 09-28-2024 End: 09-28-[address] Padmini Duenas MD Work Phone: [facility] Work Phone: Start: 09-28-2024 End: 09-28-2024 ambulatory Roselyn Cotto Facility:[facility] Start: 09-26-2024 End: 09-26-2024 ambulatory MELIA TOVAR [facility] Start: 09-16-2024 End: 09-16-[address] Padmini Duenas MD Work Phone: [facility] Work Phone: Start: 09-16-2024 End: 09-16-[address] Padmini Duenas MD -Laboratory, Specimen Work Phone: Start: 09-16-2024 End: 09-16-[address] Padmini Duenas MD -[facility] Work Phone: Start: 09-16-2024 End: 09-16-2024 ambulatory Padmini Duenas Facility:[facility] Start: 09-16-2024 End: 09-16-2024 ambulatory Padmini Duenas Facility:[facility] Start: 09-12-2024 End: 09-12-2024 Patient encounter procedure Nichole SEN -Laboratory, Specimen Work Phone: Start: 09-12-2024 End: 09-12-2024 ambulatory Nichole SEN Facility:[facility] Start: 09-10-2024 End: 09-10-2024 Patient encounter procedure Nichole SEN -[facility] Work Phone: Start: 09-10-2024 End: 09-10-2024 ambulatory Nichole SEN Facility:[facility] Start: 08-31-2024 End: 08-31-2024 [facility] Start: 08-31-2024 End: 08-31-2024 ambulatory Roselyn Cotto Facility:[facility] Start: 08-04-2024 End: 08-04-[address] Melia Elizabeth DO [facility] Work Phone: Start: 08-04-2024 End: 08-04-2024 ambulatory Melia Elizabeth Facility:[facility] Start: 07-19-2024 End: 07-19-2024 ambulatory LUIS [facility] Start: 07-07-2024 End: 07-07-2024 Patient encounter procedure Roselyn Cotto [facility] @ Start: 07-07-2024 End: 07-07-2024 ambulatory Roselyn Cotto Facility:[facility] Start: 06-07-2024 End: 06-07-[address] Melia Elizabeth DO [facility] Work Phone: Start: 06-07-2024 End: 06-07-2024 ambulatory Melia Elizabeth Facility:[facility] Start: 05-06-2024 End: 05-06-2024 ambulatory Casssilvia Gee Facility:[facility] Start: 05-06-2024 End: 05-06-2024 ambulatory [facility] Facility:[facility] Start: 02-01-2024 End: 02-01-2024 Office outpatient new 20 minutes Milla Garsia PA-C Work Phone: [facility]. Start: 07-24-2021 ambulatory FLEX CAMERON Facility :[facility] Start: 06-26-2021 End: 06-27-2021 ambulatory FLEX Carol CAMERON DO Facility:[facility] Start: 06-10-2021 ambulatory SE[place] RAKESH Facility :[facility] Start: 01-06-2018 Patient encounter procedure Facility:[id number] Start: 03-24-2017 End: 03-26-2017 Ambulatory [facility] Procedures Date Procedure Procedure Detail Performing Clinician Start: 11-21-2024 Beta-hemolytic Streptococcus culture Dr. Padmini Duenas MD Work Phone: Start: 09-28-2024 Serologic test for syphilis Dr. Padmini Duenas MD Work Phone: Start: 09-16-[address] Lenore Duenas MD Work Phone: Start: 09-12-[address] Lenore Duenas MD Work Phone: Start: 02-01-2024 End: 02-01-2024 No Known Past Surgical History Milla Garsia PA-C Work Phone: Plan of Treatment Date Care Activity Detail Author Start: 11-21-2024 Group B Streptococcus Culture Group B Streptococcus Culture [facility] Start: 11-21-2024 Streptococcus agalactiae [Presence] in Unspecified specimen by Organism specific culture [facility] Start: 11-01-2024 Nonstress test [facility] Start: 11-01-2024 Obstetric monitoring [facility] Start: 11-01-2024 [facility] Start: 11-01-2024 Vital signs measurements [facility] Start: 11-01-2024 Patient discharge [facility] Start: 09-28-2024 CBC W Auto Differential panel - Blood [facility] Start: 09-28-2024 Measurement of glucose 2 hours after glucose challenge for glucose tolerance test [facility] Start: 09-28-2024 Serologic test for syphilis [facility] Start: 09-28-2024 [facility] Beta-hemolytic Streptococcus culture [facility] CBC W Auto Different ial panel - Blood [facility] Erythrocyte mean corpuscular volume determination [facility] Hematocrit [Volume Fraction] of Blood [facility] Hemoglobin [Mass/vol ume] in Blood [facility] Leukocytes [#/volume ] in Blood [facility] Mean corpuscular hemoglobin concentration determination [facility] Mean corpuscular hemoglobin determination [facility] Measurement of gluco se 2 hours after glucose challenge for glucose tolerance test [facility] Neutrophil count [facility] Neutrophil percent differential count [facility] Patient Education Kick Counts ED False Labor OB Triage: Return to Hospital or Notify Physician if you Experience: [facility] Work Phone: Patient referral [facility] Work Phone: Platelets [#/volume] in Blood [facility] Red blood cell count [facility] Red cell distributio n width determination [facility] Serologic test for syphilis [facility] Streptococcus agalac tiae [Presence] in Unspecified specimen by Organism specific culture [facility] Payers Date Payer Category Payer Unknown [id number] 2024 Self-pay 2001 Unknown [id number] 2.16.8 [id number] 2001 Unknown [id number] 2.16. [id number] 2001 Unknown [id number] 2.16. 840.1.259456.3.579.2.594 2001 Unknown [id number] 2.16. 840.1.074700.3.579.2.479 2001 Unknown [id number] 2.16. 840.1.180739.3.579.2.479 2001 Unknown [id number] 2.16. 840.1.615644.3.579.2.479 2001 Unknown [id number] 2.16. 840.1.064328.3.579.2.479 2001 Unknown [id number] 2.16. 840.1.266826.3.579.2.479 2001 Unknown [id number] 2.16. 840.1.519016.3.579.2.479 2001 Unknown [id number] 2.16. 840.1.787349.3.579.2.479 1974 Unknown [id number] 2.16. 840.1.548845.3.579.2.356 1959 Unknown [id number] Unknown [id number] Unknown ANTHEM Unknown [id number] 2.16.8 40.1.021960.3.579.2.462 Unknown [id number] 2.16.8 40.1.439565.3.579.2.462 Unknown [id number] 2.16.8 40.1.191334.3.579.2.462 Unknown [id number] 2.16.8 40.1.568109.3.579.2.462 Unknown [id number] 2.16.8 40.1.003247.3.579.2.462 Unknown [id number] 2.16.8 40.1.024717.3.579.2.462 Unknown [id number] 2.16.8 40.1.174348.3.579.2.462 Unknown [id number] 2.16.8 40.1.156119.3.579.2.462 Unknown [id number] 2.16.8 40.1.602265.3.579.2.462 Unknown [id number] 2.16.8 40.1.134143.3.579.2.462 Unknown [id number] 2.16.8 40.1.723612.3.579.2.462 Unknown [id number] 2.16.8 40.1.166467.3.579.2.462 Unknown [id number] 2.16.8 40.1.826636.3.579.2.462 Unknown [id number] 2.16.8 40.1.629179.3.579.2.462 Unknown [id number] 2.16.8 40.1.438964.3.579.2.462 Unknown [id number] 2.16.8 40.1.139581.3.579.2.462 Unknown [id number] 2.16.8 40.1.325834.3.579.2.462 Unknown [id number] 2.16.8 40.1.421063.3.579.2.462 Unknown [id number] 2.16.8 40.1.757635.3.579.2.462 Unknown [id number] 2.16.8 40.1.323802.3.579.2.462 Unknown [id number] 2.16.8 40.1.064739.3.579.2.462 Unknown [id number] 2.16.8 40.1.767294.3.579.2.462 Social History Date Type Detail Facility Alcohol Use: Alcohol Use: ; 7 or fewer drinks per week. [facility] Caffeine Use Caffeine Use [facility] Tobacco Use: Tobacco Use: ; N ever smoker. [facility] Start: [address] [facility] Start: 05-06-2024 Never smoked tobacco [facility] Gender Identity Identifies as fe male gender (finding) [facility] Clinical Notes 06-07-2024 to 11-30-2024 Note Date & Type Note Facility 11-30-2024 Progress note [facility] 11-21-2024 Progress note [facility] 10-27-2024 Progress note [facility] 08-04-2024 Evaluation note Diagnosis Onset Date Resolution Duplicated left renal collecting system acute August 04 8:40am Family history of attention deficit hyperactivity disorder (ADHD) acute August 04, 2024 8:40am Family history of history of Go de la Tourette's syndrome acute August 04, 2024 8:40am Marginal insertion of umbilical cord acute August 04, 2024 8:40am acute August 04 8:40am Supervision of high-risk acute August 04, 2024 8:40am Unknown varicella vaccination status acute August 04 8:40am Bradycardia resolved August 04 8:40am Duplicated left renal collecting system acute August 31 10:13am Family history of attention deficit hyperactivity disorder (ADHD) acute August 31, 2024 10:13am Family history of history of Go de la Tourette's syndrome acute August 31, 2024 10:13am Marginal insertion of umbilical cord acute August 31, 2024 10:13am acute August 31 10:13am Supervision of high-risk acute August 31, 2024 10:13am Unknown varicella vaccination status acute August 31 10:13am Bradycardia resolved August 31 10:13am UTI (urinary tract infection) acute September 10, 2024 1:33pm Duplicated left renal collecting system acute September 16, 2024 9:25am Family history of attention deficit hyperactivity disorder (ADHD) acute September 16, 2024 9: 25am Family history of history of Go de la Tourette's syndrome acute September 16 9:25am Marginal insertion of umbilical cord acute September 16, 2024 9: 25am acute September 16, 2024 9:25am Supervision of high-risk acute September 16, 2024 9: 25am Unknown varicella vaccination status acute September 16, 2024 9:25am UTI (urinary tract infection) acute September 16, 2024 9: 25am Bradycardia resolved September 16, 2024 9:25am Duplicated left renal collecting system acute September 28, 2024 10:59am Family history of attention deficit hyperactivity disorder (ADHD) acute September 28, 2024 10:59am Family history of history of Go de la Tourette's syndrome acute September 28 10:59am Marginal insertion of umbilical cord acute September 28, 2024 10:59am acute September 28, 2024 10:59am Supervision of high-risk acute September 28, 2024 10:59am Unknown varicella vaccination status acute September 28 10:59am UTI (urinary tract infection) acute September 28, 2024 10:59am Duplicated left renal collecting system acute October 13, 2024 9:35am Family history of attention deficit hyperactivity disorder (ADHD) acute October 13, 2024 9:35am Family history of history of Go de la Tourette's syndrome acute October 13 9:35am Marginal insertion of umbilical cord acute October 13, 2024 9:35am acute October 13, 2024 9:35am Supervision of high-risk acute October 13, 2024 9:35am Unknown varicella vaccination status acute October 13 9:35am UTI (urinary tract infection) acute October 13, 2024 9:35am Duplicated left renal collecting system acute October 27 8:49am Family history of attention deficit hyperactivity disorder (ADHD) acute October 27, 2024 8:49am Family history of history of Go de la Tourette's syndrome acute October 27 8:49am Marginal insertion of umbilical cord acute October 27, 2024 8:49am acute October 27 8:49am Supervision of high-risk acute October 27, 2024 8:49am Unknown varicella vaccination status acute October 27 8:49am UTI (urinary tract infection) acute October 27, 2024 8:49am Decreased movement affecting management of mother, antepartum acute November 01 10:05am Duplicated left renal collecting system acute November 01 10:05am Family history of attention deficit hyperactivity disorder (ADHD) acute November 01, 2024 10:05am Family history of history of Go de la Tourette's syndrome acute November 01 10:05am Marginal insertion of umbilical cord acute November 01, 2024 10:05am acute November 01 10:05am Supervision of high-risk acute November 01, 2024 10:05am Unknown varicella vaccination status acute November 01 10:05am UTI (urinary tract infection) acute November 01, 2024 10:05am Decreased movement affecting management of mother, antepartum acute November 07 1:51pm Duplicated left renal collecting system acute November 07 1:51pm Family history of attention deficit hyperactivity disorder (ADHD) acute November 07, 2024 1:51pm Family history of history of Go de la Tourette's syndrome acute November 07 025 1:51pm growth restriction acute November 07, 2024 1:51pm Marginal insertion of umbilical cord acute November 07, 2024 1:51pm acute November 07 1:51pm Supervision of high-risk acute November 07, 2024 1:51pm Unknown varicella vaccination status acute November 07 1:51pm UTI (urinary tract infection) acute November 07, 2024 1:51pm [facility] Work Phone: 1(597) 452-352103-20-2025 Evaluation note* Diagnosis Onset Date Resolution Status Admit Date Duplicated left renal collecting system acute August 04 8:40am Family history of attention deficit hyperactivity disorder (ADHD) acute August 04, 2024 8:40am Family history of history of Go de la Tourette's syndrome acute August 04, 2024 8:40am Marginal insertion of umbili aman cord acute August 04, 2024 8:40am acute August 04 8:40am Supervision of high-risk acute August 04, 2024 8:40am Unknown varicella vaccinatio n status acute August 04, 2024 8:40am Bradycardia resolved August 04 8:40am Duplicated left renal collecting system acute August 31 10:13am Family history of attention deficit hyperactivity disorder (ADHD) acute August 31, 2024 10:13am Family history of history of Go de la Tourette's syndrome acute August 31, 2024 10:13am Marginal insertion of umbili aman cord acute August 31, 2024 10:13am acute August 31 10:13am Supervision of high-risk acute August 31, 2024 10:13am Unknown varicella vaccinatio n status acute August 31, 2024 10:13am Bradycardia resolved August 31 025 10:13am UTI (urinary tract infection) acute September 10, 2024 1:33pm Duplicated left renal collecting system acute September 16, 2024 9:25am Family history of attention deficit hyperactivity disorder (ADHD) acute September 16, 2024 9: 25am Family history of history of Go de la Tourette's syndrome acute September 16, 2024 9: 25am Marginal insertion of umbili aman cord acute September 16, 2024 9: 25am acute September 16, 2024 9:25am Supervision of high-risk acute September 16, 2024 9: 25am Unknown varicella vaccinatio n status acute September 16, 2024 9: 25am UTI (urinary tract infection) acute September 16, 2024 9:25am Bradycardia resolved September 16, 2024 9:25am Duplicated left renal collecting system acute September 28, 2024 10:59am Family history of attention deficit hyperactivity disorder (ADHD) acute September 28, 2024 1 0:59am Family history of history of Go de la Tourette's syndrome acute September 28, 2024 1 0:59am Marginal insertion of umbili aman cord acute September 28, 2024 1 0:59am acute September 28, 2024 10:59am Supervision of high-risk acute September 28, 2024 1 0:59am Unknown varicella vaccinatio n status acute September 28, 2024 1 0:59am UTI (urinary tract infection) acute September 28, 2024 10:59am Duplicated left renal collecting system acute October 13, 2024 9:35am Family history of attention deficit hyperactivity disorder (ADHD) acute October 13, 2024 9 :35am Family history of history of Go de la Tourette's syndrome acute October 13, 2024 9 :35am Marginal insertion of umbili aman cord acute October 13, 2024 9 :35am acute October 13, 2024 9:35am Supervision of high-risk acute October 13, 2024 9 :35am Unknown varicella vaccinatio n status acute October 13, 2024 9 :35am UTI (urinary tract infection) acute October 13, 2024 9:35am Duplicated left renal collecting system acute October 27 8:49am Family history of attention deficit hyperactivity disorder (ADHD) acute October 27, 2024 8:49am Family history of history of Go de la Tourette's syndrome acute October 27, 2024 8:49am Marginal insertion of umbili aman cord acute October 27, 2024 8:49am acute October 27 8:49am Supervision of high-risk acute October 27, 2024 8:49am Unknown varicella vaccinatio n status acute October 27, 2024 8:49am UTI (urinary tract infection) acute October 27, 2024 8:49am Decreased movement affecting management of mother, antepartum acute November 01, 2024 10:05am Duplicated left renal collecting system acute November 01 10:05am Family history of attention deficit hyperactivity disorder (ADHD) acute November 01, 2024 10:05am Family history of history of Go de la Tourette's syndrome acute November 01, 2024 10:05am Marginal insertion of umbili aman cord acute November 01, 2024 10:05am acute November 01 10:05am Supervision of high-risk acute November 01, 2024 10:05am Unknown varicella vaccinatio n status acute November 01, 2024 10:05am UTI (urinary tract infection) acute November 01, 2024 10:05am Decreased movement affecting management of mother, antepartum acute November 07, 2024 1:51pm Duplicated left renal collecting system acute November 07 1:51pm Family history of attention deficit hyperactivity disorder (ADHD) acute November 07, 2024 1:51pm Family history of history of Go de la Tourette's syndrome acute November 07, 2024 1:51pm growth restriction acute November 07, 2024 1:51pm Marginal insertion of umbili aman cord acute November 07, 2024 1:51pm acute November 07 1:51pm Supervision of high-risk acute November 07, 2024 1:51pm Unknown varicella vaccinatio n status acute November 07, 2024 1:51pm UTI (urinary tract infection) acute November 07, 2024 1:51pm Decreased movement affecting management of mother, antepartum acute November 14, 2024 8:48am Duplicated left renal collecting system acute November 14 8:48am Family history of attention deficit hyperactivity disorder (ADHD) acute November 14, 2024 8:48am Family history of history of Go de la Tourette's syndrome acute November 14, 2024 8:48am growth restriction acute November 14, 2024 8:48am Marginal insertion of umbili aman cord acute November 14, 2024 8:48am acute November 14 8:48am Supervision of high-risk acute November 14, 2024 8:48am Unknown varicella vaccinatio n status acute November 14, 2024 8:48am UTI (urinary tract infection) acute November 14, 2024 8:48am [facility] Work Phone: [phone]) [phone] Evaluation note* Diagnosis Onset Date Resolution Status Admit Date Duplicated left renal collecting system acute August 04 8:40am Family history of attention deficit hyperactivity disorder (ADHD) acute August 04, 2024 8:40am Family history of history of Go de la Tourette's syndrome acute August 04, 2024 8:40am Marginal insertion of umbili aman cord acute August 04, 2024 8:40am acute August 04 8:40am Supervision of high-risk acute August 04, 2024 8:40am Unknown varicella vaccinatio n status acute August 04, 2024 8:40am Bradycardia resolved August 04 8:40am Duplicated left renal collecting system acute August 31 10:13am Family history of attention deficit hyperactivity disorder (ADHD) acute August 31, 2024 10:13am Family history of history of Go de la Tourette's syndrome acute August 31, 2024 10:13am Marginal insertion of umbili aman cord acute August 31, 2024 10:13am acute August 31 10:13am Supervision of high-risk acute August 31, 2024 10:13am Unknown varicella vaccinatio n status acute August 31, 2024 10:13am Bradycardia resolved August 31 10:13am UTI (urinary tract infection) acute September 10, 2024 1:33pm Duplicated left renal collecting system acute September 16, 2024 9:25am Family history of attention deficit hyperactivity disorder (ADHD) acute September 16, 2024 9: 25am Family history of history of Go de la Tourette's syndrome acute September 16, 2024 9: 25am Marginal insertion of umbili aman cord acute September 16, 2024 9: 25am acute September 16, 2024 9:25am Supervision of high-risk acute September 16, 2024 9: 25am Unknown varicella vaccinatio n status acute September 16, 2024 9: 25am UTI (urinary tract infection) acute September 16, 2024 9:25am Bradycardia resolved September 16, 2024 9:25am Duplicated left renal collecting system acute September 28, 2024 10:59am Family history of attention deficit hyperactivity disorder (ADHD) acute September 28, 2024 1 0:59am Family history of history of Go de la Tourette's syndrome acute September 28, 2024 1 0:59am Marginal insertion of umbili aman cord acute September 28, 2024 1 0:59am acute September 28, 2024 10:59am Supervision of high-risk acute September 28, 2024 1 0:59am Unknown varicella vaccinatio n status acute September 28, 2024 1 0:59am UTI (urinary tract infection) acute September 28, 2024 10:59am Duplicated left renal collecting system acute October 13, 2024 9:35am Family history of attention deficit hyperactivity disorder (ADHD) acute October 13, 2024 9 :35am Family history of history of Go de la Tourette's syndrome acute October 13, 2024 9 :35am Marginal insertion of umbili aman cord acute October 13, 2024 9 :35am acute October 13, 2024 9:35am Supervision of high-risk acute October 13, 2024 9 :35am Unknown varicella vaccinatio n status acute October 13, 2024 9 :35am UTI (urinary tract infection) acute October 13, 2024 9:35am Duplicated left renal collecting system acute October 27 8:49am Family history of attention deficit hyperactivity disorder (ADHD) acute October 27, 2024 8:49am Family history of history of Go de la Tourette's syndrome acute October 27, 2024 8:49am Marginal insertion of umbili aman cord acute October 27, 2024 8:49am acute October 27 8:49am Supervision of high-risk acute October 27, 2024 8:49am Unknown varicella vaccinatio n status acute October 27, 2024 8:49am UTI (urinary tract infection) acute October 27, 2024 8:49am Decreased movement affecting management of mother, antepartum acute November 01, 2024 10:05am Duplicated left renal collecting system acute November 01 10:05am Family history of attention deficit hyperactivity disorder (ADHD) acute November 01, 2024 10:05am Family history of history of Go de la Tourette's syndrome acute November 01, 2024 10:05am Marginal insertion of umbili aman cord acute November 01, 2024 10:05am acute November 01 10:05am Supervision of high-risk acute November 01, 2024 10:05am Unknown varicella vaccinatio n status acute November 01, 2024 10:05am UTI (urinary tract infection) acute November 01, 2024 10:05am Decreased movement affecting management of mother, antepartum acute November 07, 2024 1:51pm Duplicated left renal collecting system acute November 07 1:51pm Family history of attention deficit hyperactivity disorder (ADHD) acute November 07, 2024 1:51pm Family history of history of Go de la Tourette's syndrome acute November 07, 2024 1:51pm growth restriction acute November 07, 2024 1:51pm Marginal insertion of umbili aman cord acute November 07, 2024 1:51pm acute November 07 1:51pm Supervision of high-risk acute November 07, 2024 1:51pm Unknown varicella vaccinatio n status acute November 07, 2024 1:51pm UTI (urinary tract infection) acute November 07, 2024 1:51pm Decreased movement affecting management of mother, antepartum acute November 14, 2024 8:48am Duplicated left renal collecting system acute November 14 8:48am Family history of attention deficit hyperactivity disorder (ADHD) acute November 14, 2024 8:48am Family history of history of Go de la Tourette's syndrome acute November 14, 2024 8:48am growth restriction acute November 14, 2024 8:48am Marginal insertion of umbili aman cord acute November 14, 2024 8:48am acute November 14 8:48am Supervision of high-risk acute November 14, 2024 8:48am Unknown varicella vaccinatio n status acute November 14, 2024 8:48am UTI (urinary tract infection) acute November 14, 2024 8:48am Decreased movement affecting management of mother, antepartum acute November 21, 2024 1 0:09am Duplicated left renal collecting system acute November 21, 2024 10:09am Family history of attention deficit hyperactivity disorder (ADHD) acute November 21, 2024 1 0:09am Family history of history of Go de la Tourette's syndrome acute November 21, 2024 1 0:09am growth restriction acute November 21, 2024 10:09am Marginal insertion of umbili aman cord acute November 21, 2024 1 0:09am acute November 21, 2024 10:09am Supervision of high-risk acute November 21, 2024 1 0:09am Unknown varicella vaccinatio n status acute November 21, 2024 1 0:09am UTI (urinary tract infection) acute November 21, 2024 10:09am [facility] Work Phone: [phone]) [phone] Evaluation note* Diagnosis Onset Date Resolution Status Admit Date Duplicated left renal collecting system acute August 04 8:40am Family history of attention deficit hyperactivity disorder (ADHD) acute August 04, 2024 8:40am Family history of history of Go de la Tourette's syndrome acute August 04, 2024 8:40am Marginal insertion of umbili aman cord acute August 04, 2024 8:40am acute August 04 8:40am Supervision of high-risk acute August 04, 2024 8:40am Unknown varicella vaccinatio n status acute August 04, 2024 8:40am Bradycardia resolved August 04 8:40am Duplicated left renal collecting system acute August 31 10:13am Family history of attention deficit hyperactivity disorder (ADHD) acute August 31, 2024 10:13am Family history of history of Go de la Tourette's syndrome acute August 31, 2024 10:13am Marginal insertion of umbili aman cord acute August 31, 2024 10:13am acute August 31 10:13am Supervision of high-risk acute August 31, 2024 10:13am Unknown varicella vaccinatio n status acute August 31, 2024 10:13am Bradycardia resolved August 31, 025 10:13am UTI (urinary tract infection) acute September 10, 2024 1:33pm Duplicated left renal collecting system acute September 16, 2024 9:25am Family history of attention deficit hyperactivity disorder (ADHD) acute September 16, 2024 9: 25am Family history of history of Go de la Tourette's syndrome acute September 16, 2024 9: 25am Marginal insertion of umbili aman cord acute September 16, 2024 9: 25am acute September 16, 2024 9:25am Supervision of high-risk acute September 16, 2024 9: 25am Unknown varicella vaccinatio n status acute September 16, 2024 9: 25am UTI (urinary tract infection) acute September 16, 2024 9:25am Bradycardia resolved September 16, 2024 9:25am Duplicated left renal collecting system acute September 28, 2024 10:59am Family history of attention deficit hyperactivity disorder (ADHD) acute September 28, 2024 1 0:59am Family history of history of Go de la Tourette's syndrome acute September 28, 2024 1 0:59am Marginal insertion of umbili aman cord acute September 28, 2024 1 0:59am acute September 28, 2024 10:59am Supervision of high-risk acute September 28, 2024 1 0:59am Unknown varicella vaccinatio n status acute September 28, 2024 1 0:59am UTI (urinary tract infection) acute September 28, 2024 10:59am Duplicated left renal collecting system acute October 13, 2024 9:35am Family history of attention deficit hyperactivity disorder (ADHD) acute October 13, 2024 9 :35am Family history of history of Go de la Tourette's syndrome acute October 13, 2024 9 :35am Marginal insertion of umbili aman cord acute October 13, 2024 9 :35am acute October 13, 2024 9:35am Supervision of high-risk acute October 13, 2024 9 :35am Unknown varicella vaccinatio n status acute October 13, 2024 9 :35am UTI (urinary tract infection) acute October 13, 2024 9:35am Duplicated left renal collecting system acute October 27 8:49am Family history of attention deficit hyperactivity disorder (ADHD) acute October 27, 2024 8:49am Family history of history of Go de la Tourette's syndrome acute October 27, 2024 8:49am Marginal insertion of umbili aman cord acute October 27, 2024 8:49am acute October 27 8:49am Supervision of high-risk acute October 27, 2024 8:49am Unknown varicella vaccinatio n status acute October 27, 2024 8:49am UTI (urinary tract infection) acute October 27, 2024 8:49am Duplicated left renal collecting system acute November 01 10:05am Family history of attention deficit hyperactivity disorder (ADHD) acute November 01, 2024 10:05am Family history of history of Go de la Tourette's syndrome acute November 01, 2024 10:05am Marginal insertion of umbili aman cord acute November 01, 2024 10:05am acute November 01 10:05am Supervision of high-risk acute November 01, 2024 10:05am Unknown varicella vaccinatio n status acute November 01, 2024 10:05am UTI (urinary tract infection) acute November 01, 2024 10:05am Decreased movement affecting management of mother, antepartum resolved November 01, 2024 10:05am Duplicated left renal collecting system acute November 07 1:51pm Family history of attention deficit hyperactivity disorder (ADHD) acute November 07, 2024 1:51pm Family history of history of Go de la Tourette's syndrome acute November 07, 2024 1:51pm growth restriction acute November 07, 2024 1:51pm Marginal insertion of umbili aman cord acute November 07, 2024 1:51pm acute November 07 1:51pm Supervision of high-risk acute November 07, 2024 1:51pm Unknown varicella vaccinatio n status acute November 07, 2024 1:51pm UTI (urinary tract infection) acute November 07, 2024 1:51pm Decreased movement affecting management of mother, antepartum resolved November 07, 2024 1:51pm Duplicated left renal collecting system acute November 14 8:48am Family history of attention deficit hyperactivity disorder (ADHD) acute November 14, 2024 8:48am Family history of history of Go de la Tourette's syndrome acute November 14, 2024 8:48am growth restriction acute November 14, 2024 8:48am Marginal insertion of umbili aman cord acute November 14, 2024 8:48am acute November 14 8:48am Supervision of high-risk acute November 14, 2024 8:48am Unknown varicella vaccinatio n status acute November 14, 2024 8:48am UTI (urinary tract infection) acute November 14, 2024 8:48am Decreased movement affecting management of mother, antepartum resolved November 14, 2024 8:48am Duplicated left renal collecting system acute November 21, 2024 10:09am Family history of attention deficit hyperactivity disorder (ADHD) acute November 21, 2024 1 0:09am Family history of history of Go de la Tourette's syndrome acute November 21, 2024 1 0:09am growth restriction acute November 21, 2024 10:09am Marginal insertion of umbili aman cord acute November 21, 2024 1 0:09am acute November 21, 2024 10:09am Supervision of high-risk acute November 21, 2024 1 0:09am Unknown varicella vaccinatio n status acute November 21, 2024 1 0:09am UTI (urinary tract infection) acute November 21, 2024 10:09am Decreased movement affecting management of mother, antepartum resolved November 21, 2024 1 0:09am Duplicated left renal collecting system acute November 28 8:18am Family history of attention deficit hyperactivity disorder (ADHD) acute November 28, 2024 8:18am Family history of history of Go de la Tourette's syndrome acute November 28, 2024 8:18am growth restriction acute November 28, 2024 8:18am Marginal insertion of umbili aman cord acute November 28, 2024 8:18am acute November 28 8:18am Supervision of high-risk acute November 28, 2024 8:18am Unknown varicella vaccinatio n status acute November 28, 2024 8:18am UTI (urinary tract infection) acute November 28, 2024 8:18am [facility] Work Phone: [phone] Evaluation note* Diagnosis Onset Date Resolution Status Admit Date Duplicated left renal collecting system acute August 04 8:40am Family history of attention deficit hyperactivity disorder (ADHD) acute August 04, 2024 8:40am Family history of history of Go de la Tourette's syndrome acute August 04, 2024 8:40am Marginal insertion of umbili aman cord acute August 04, 2024 8:40am acute August 04 8:40am Supervision of high-risk acute August 04, 2024 8:40am Unknown varicella vaccinatio n status acute August 04, 2024 8:40am Bradycardia resolved August 04 8:40am Duplicated left renal collecting system acute August 31 10:13am Family history of attention deficit hyperactivity disorder (ADHD) acute August 31, 2024 10:13am Family history of history of Go de la Tourette's syndrome acute August 31, 2024 10:13am Marginal insertion of umbili aman cord acute August 31, 2024 10:13am acute August 31 10:13am Supervision of high-risk acute August 31, 2024 10:13am Unknown varicella vaccinatio n status acute August 31, 2024 10:13am Bradycardia resolved August 31 10:13am UTI (urinary tract infection) acute September 10, 2024 1:33pm Duplicated left renal collecting system acute September 16, 2024 9:25am Family history of attention deficit hyperactivity disorder (ADHD) acute September 16, 2024 9: 25am Family history of history of Go de la Tourette's syndrome acute September 16, 2024 9: 25am Marginal insertion of umbili aman cord acute September 16, 2024 9: 25am acute September 16, 2024 9:25am Supervision of high-risk acute September 16, 2024 9: 25am Unknown varicella vaccinatio n status acute September 16, 2024 9: 25am UTI (urinary tract infection) acute September 16, 2024 9:25am Bradycardia resolved September 16, 2024 9:25am Duplicated left renal collecting system acute September 28, 2024 10:59am Family history of attention deficit hyperactivity disorder (ADHD) acute September 28, 2024 1 0:59am Family history of history of Go de la Tourette's syndrome acute September 28, 2024 1 0:59am Marginal insertion of umbili aman cord acute September 28, 2024 1 0:59am acute September 28, 2024 10:59am Supervision of high-risk acute September 28, 2024 1 0:59am Unknown varicella vaccinatio n status acute September 28, 2024 1 0:59am UTI (urinary tract infection) acute September 28, 2024 10:59am Duplicated left renal collecting system acute October 13, 2024 9:35am Family history of attention deficit hyperactivity disorder (ADHD) acute October 13, 2024 9 :35am Family history of history of Go de la Tourette's syndrome acute October 13, 2024 9 :35am Marginal insertion of umbili aman cord acute October 13, 2024 9 :35am acute October 13, 2024 9:35am Supervision of high-risk acute October 13, 2024 9 :35am Unknown varicella vaccinatio n status acute October 13, 2024 9 :35am UTI (urinary tract infection) acute October 13, 2024 9:35am Duplicated left renal collecting system acute October 27 8:49am Family history of attention deficit hyperactivity disorder (ADHD) acute October 27, 2024 8:49am Family history of history of Go de la Tourette's syndrome acute October 27, 2024 8:49am Marginal insertion of umbili aman cord acute October 27, 2024 8:49am acute October 27 8:49am Supervision of high-risk acute October 27, 2024 8:49am Unknown varicella vaccinatio n status acute October 27, 2024 8:49am UTI (urinary tract infection) acute October 27, 2024 8:49am Duplicated left renal collecting system acute November 01 10:05am Family history of attention deficit hyperactivity disorder (ADHD) acute November 01, 2024 10:05am Family history of history of Go de la Tourette's syndrome acute November 01, 2024 10:05am Marginal insertion of umbili aman cord acute November 01, 2024 10:05am acute November 01 10:05am Supervision of high-risk acute November 01, 2024 10:05am Unknown varicella vaccinatio n status acute November 01, 2024 10:05am UTI (urinary tract infection) acute November 01, 2024 10:05am Decreased movement affecting management of mother, antepartum resolved November 01, 2024 10:05am Duplicated left renal collecting system acute November 07 1:51pm Family history of attention deficit hyperactivity disorder (ADHD) acute November 07, 2024 1:51pm Family history of history of Go de la Tourette's syndrome acute November 07, 2024 1:51pm growth restriction acute November 07, 2024 1:51pm Marginal insertion of umbili aman cord acute November 07, 2024 1:51pm acute November 07 1:51pm Supervision of high-risk acute November 07, 2024 1:51pm Unknown varicella vaccinatio n status acute November 07, 2024 1:51pm UTI (urinary tract infection) acute November 07, 2024 1:51pm Decreased movement affecting management of mother, antepartum resolved November 07, 2024 1:51pm Duplicated left renal collecting system acute November 14 8:48am Family history of attention deficit hyperactivity disorder (ADHD) acute November 14, 2024 8:48am Family history of history of Go de la Tourette's syndrome acute November 14, 2024 8:48am growth restriction acute November 14, 2024 8:48am Marginal insertion of umbili aman cord acute November 14, 2024 8:48am acute November 14 8:48am Supervision of high-risk acute November 14, 2024 8:48am Unknown varicella vaccinatio n status acute November 14, 2024 8:48am UTI (urinary tract infection) acute November 14, 2024 8:48am Decreased movement affecting management of mother, antepartum resolved November 14, 2024 8:48am Duplicated left renal collecting system acute November 21, 2024 10:09am Family history of attention deficit hyperactivity disorder (ADHD) acute November 21, 2024 1 0:09am Family history of history of Go de la Tourette's syndrome acute November 21, 2024 1 0:09am growth restriction acute November 21, 2024 10:09am Marginal insertion of umbili aman cord acute November 21, 2024 1 0:09am acute November 21, 2024 10:09am Supervision of high-risk acute November 21, 2024 1 0:09am Unknown varicella vaccinatio n status acute November 21, 2024 1 0:09am UTI (urinary tract infection) acute November 21, 2024 10:09am Decreased movement affecting management of mother, antepartum resolved November 21, 2024 1 0:09am Duplicated left renal collecting system acute November 28 8:18am Family history of attention deficit hyperactivity disorder (ADHD) acute November 28, 2024 8:18am Family history of history of Go de la Tourette's syndrome acute November 28, 2024 8:18am growth restriction acute November 28, 2024 8:18am Marginal insertion of umbili aman cord acute November 28, 2024 8:18am acute November 28 8:18am Supervision of high-risk acute November 28, 2024 8:18am Unknown varicella vaccinatio n status acute November 28, 2024 8:18am UTI (urinary tract infection) acute November 28, 2024 8:18am Duplicated left renal collecting system acute November 30 9:11am Family history of attention deficit hyperactivity disorder (ADHD) acute November 30, 2024 9:11am Family history of history of Go de la Tourette's syndrome acute November 30, 2024 9:11am growth restriction acute November 30, 2024 9:11am Marginal insertion of umbili aman cord acute November 30, 2024 9:11am acute November 30 9:11am Supervision of high-risk acute November 30, 2024 9:11am Unknown varicella vaccinatio n status acute November 30, 2024 9:11am UTI (urinary tract infection) acute November 30, 2024 9:11am [facility] Work Phone: 1(152) 747-273802-20-2025 Evaluation note* Diagnosis Onset Date Resolution Status Admit Date Family history of attention deficit hyperactivity disorder (ADHD) acute July 07 11:28am Family history of history of Go de la Tourette's syndrome acute July 07 11:28am acute July 07, 2024 11:28am Supervision of high-risk acute July 07 11:28am Unknown varicella vaccinatio n status acute July 07 11:28am Bradycardia resolved June 11:28am Duplicated left renal collecting system acute August 04 8:40am Family history of attention deficit hyperactivity disorder (ADHD) acute August 04, 2024 8:40am Family history of history of Go de la Tourette's syndrome acute August 04, 2024 8:40am Marginal insertion of umbilical cord acute August 04, 2024 8:40am acute August 04 8:40am Supervision of high-risk acute August 04, 2024 8:40am Unknown varicella vaccinatio n status acute August 04, 2024 8:40am Bradycardia resolved August 04 8:40am Duplicated left renal collecting system acute August 31 10:13am Family history of attention deficit hyperactivity disorder (ADHD) acute August 31, 2024 10:13am Family history of history of Go de la Tourette's syndrome acute August 31, 2024 10:13am Marginal insertion of umbilical cord acute August 31, 2024 10:13am acute August 31 10:13am Supervision of high-risk acute August 31, 2024 10:13am Unknown varicella vaccinatio n status acute August 31, 2024 10:13am Bradycardia resolved August 31 10:13am UTI (urinary tract infection) acute September 10, 2024 1:33pm Duplicated left renal collecting system acute September 16, 2024 9:25am Family history of attention deficit hyperactivity disorder (ADHD) acute September 16, 2024 9: 25am Family history of history of Go de la Tourette's syndrome acute September 16, 2024 9: 25am Marginal insertion of umbilical cord acute September 16, 2024 9: 25am acute September 16, 2024 9:25am Supervision of high-risk acute September 16, 2024 9: 25am Unknown varicella vaccinatio n status acute September 16, 2024 9: 25am UTI (urinary tract infection) acute September 16, 2024 9:25am Bradycardia resolved September 16, 2024 9:25am Duplicated left renal collecting system acute September 28, 2024 10:59am Family history of attention deficit hyperactivity disorder (ADHD) acute September 28, 2024 1 0:59am Family history of history of Go de la Tourette's syndrome acute September 28, 2024 1 0:59am Marginal insertion of umbilical cord acute September 28, 2024 1 0:59am acute September 28, 2024 10:59am Supervision of high-risk acute September 28, 2024 1 0:59am Unknown varicella vaccinatio n status acute September 28, 2024 1 0:59am UTI (urinary tract infection) acute September 28, 2024 10:59am Duplicated left renal collecting system acute October 13, 2024 9:35am Family history of attention deficit hyperactivity disorder (ADHD) acute October 13, 2024 9 :35am Family history of history of Go de la Tourette's syndrome acute October 13, 2024 9 :35am Marginal insertion of umbilical cord acute October 13, 2024 9 :35am acute October 13, 2024 9:35am Supervision of high-risk acute October 13, 2024 9 :35am Unknown varicella vaccinatio n status acute October 13, 2024 9 :35am UTI (urinary tract infection) acute October 13, 2024 9:35am [facility] Work Phone: 1(908) 661-161302-20-2025 Evaluation note* Diagnosis Onset Date Resolution Status Admit Date Family history of attention deficit hyperactivity disorder (ADHD) acute July 07 11:28am Family history of history of Go de la Tourette's syndrome acute July 07 11:28am acute July 07, 2024 11:28am Supervision of high-risk acute July 07 11:28am Unknown varicella vaccinatio n status acute July 07 11:28am Bradycardia resolved June 11:28am Duplicated left renal collecting system acute August 04 8:40am Family history of attention deficit hyperactivity disorder (ADHD) acute August 04, 2024 8:40am Family history of history of Go de la Tourette's syndrome acute August 04, 2024 8:40am Marginal insertion of umbilical cord acute August 04, 2024 8:40am acute August 04 8:40am Supervision of high-risk acute August 04, 2024 8:40am Unknown varicella vaccinatio n status acute August 04, 2024 8:40am Bradycardia resolved August 04 8:40am Duplicated left renal collecting system acute August 31 10:13am Family history of attention deficit hyperactivity disorder (ADHD) acute August 31, 2024 10:13am Family history of history of Go de la Tourette's syndrome acute August 31, 2024 10:13am Marginal insertion of umbilical cord acute August 31, 2024 10:13am acute August 31 10:13am Supervision of high-risk acute August 31, 2024 10:13am Unknown varicella vaccinatio n status acute August 31, 2024 10:13am Bradycardia resolved August 31, 025 10:13am UTI (urinary tract infection) acute September 10, 2024 1:33pm Duplicated left renal collecting system acute September 16, 2024 9:25am Family history of attention deficit hyperactivity disorder (ADHD) acute September 16, 2024 9: 25am Family history of history of Go de la Tourette's syndrome acute September 16, 2024 9: 25am Marginal insertion of umbilical cord acute September 16, 2024 9: 25am acute September 16, 2024 9:25am Supervision of high-risk acute September 16, 2024 9: 25am Unknown varicella vaccinatio n status acute September 16, 2024 9: 25am UTI (urinary tract infection) acute September 16, 2024 9:25am Bradycardia resolved September 16, 2024 9:25am Duplicated left renal collecting system acute September 28, 2024 10:59am Family history of attention deficit hyperactivity disorder (ADHD) acute September 28, 2024 1 0:59am Family history of history of Go de la Tourette's syndrome acute September 28, 2024 1 0:59am Marginal insertion of umbilical cord acute September 28, 2024 1 0:59am acute September 28, 2024 10:59am Supervision of high-risk acute September 28, 2024 1 0:59am Unknown varicella vaccinatio n status acute September 28, 2024 1 0:59am UTI (urinary tract infection) acute September 28, 2024 10:59am Duplicated left renal collecting system acute October 13, 2024 9:35am Family history of attention deficit hyperactivity disorder (ADHD) acute October 13, 2024 9 :35am Family history of history of Go de la Tourette's syndrome acute October 13, 2024 9 :35am Marginal insertion of umbilical cord acute October 13, 2024 9 :35am acute October 13, 2024 9:35am Supervision of high-risk acute October 13, 2024 9 :35am Unknown varicella vaccinatio n status acute October 13, 2024 9 :35am UTI (urinary tract infection) acute October 13, 2024 9:35am Duplicated left renal collecting system acute October 27 8:49am Family history of attention deficit hyperactivity disorder (ADHD) acute October 27, 2024 8:49am Family history of history of Go de la Tourette's syndrome acute October 27, 2024 8:49am Marginal insertion of umbilical cord acute October 27, 2024 8:49am acute October 27 8:49am Supervision of high-risk acute October 27, 2024 8:49am Unknown varicella vaccinatio n status acute October 27, 2024 8:49am UTI (urinary tract infection) acute October 27, 2024 8:49am [facility] Work Phone: 1(441) 366-124901-21-2025 Evaluation note* Diagnosis Onset Date Resolution Status Admit Date Bradycardia acute June 07, 2024 2:35pm Family history of attention deficit hyperactivity disorder (ADHD) acute June 07 2:35pm Family history of history of Go de la Tourette's syndrome acute June 07 2:35pm acute June 07, 2024 2:35pm Supervision of high-risk acute June 07 2:35pm Unknown varicella vaccinatio n status acute June 07 2:35pm Bradycardia acute June 11:28am Family history of attention deficit hyperactivity disorder (ADHD) acute July 07 11:28am Family history of history of Go de la Tourette's syndrome acute July 07 11:28am acute July 07, 2024 11:28am Supervision of high-risk acute July 07 11:28am Unknown varicella vaccinatio n status acute July 07, 11:28am Bradycardia acute August 04 8:40am Duplicated left renal collecting system acute August 04 8:40am Family history of attention deficit hyperactivity disorder (ADHD) acute August 04, 2024 8:40am Family history of history of Go de la Tourette's syndrome acute August 04, 2024 8:40am Marginal insertion of umbili aman cord acute August 04, 2024 8:40am acute August 04 8:40am Supervision of high-risk acute August 04, 2024 8:40am Unknown varicella vaccinatio n status acute August 04, 2024 8:40am Bradycardia acute August 31 10:13am Duplicated left renal collecting system acute August 31 10:13am Family history of attention deficit hyperactivity disorder (ADHD) acute August 31, 2024 10:13am Family history of history of Go de la Tourette's syndrome acute August 31, 2024 10:13am Marginal insertion of umbili aman cord acute August 31, 2024 10:13am acute August 31 10:13am Supervision of high-risk acute August 31, 2024 10:13am Unknown varicella vaccinatio n status acute August 31, 2024 10:13am UTI (urinary tract infection) acute September 10, 2024 1:33pm Bradycardia acute September 16, 2024 9:25am Duplicated left renal collecting system acute September 16, 2024 9:25am Family history of attention deficit hyperactivity disorder (ADHD) acute September 16, 2024 9: 25am Family history of history of Go de la Tourette's syndrome acute September 16, 2024 9: 25am Marginal insertion of umbili aman cord acute September 16, 2024 9: 25am acute September 16, 2024 9:25am Supervision of high-risk acute September 16, 2024 9: 25am Unknown varicella vaccinatio n status acute September 16, 2024 9: 25am UTI (urinary tract infection) acute September 16, 2024 9:25am [facility] Work Phone: 1(387) 578-346401-21-2025 Evaluation note* Diagnosis Onset Date Resolution Status Admit Date Bradycardia acute June 07, 2024 2:35pm Family history of attention deficit hyperactivity disorder (ADHD) acute June 07 2:35pm Family history of history of Go de la Tourette's syndrome acute June 07 2:35pm acute June 07, 2024 2:35pm Supervision of high-risk acute June 07 2:35pm Unknown varicella vaccinatio n status acute June 07 2:35pm Bradycardia acute June 11:28am Family history of attention deficit hyperactivity disorder (ADHD) acute July 07 11:28am Family history of history of Go de la Tourette's syndrome acute July 07 11:28am acute July 07, 2024 11:28am Supervision of high-risk acute July 07 11:28am Unknown varicella vaccinatio n status acute July 07 11:28am Bradycardia acute August 04 8:40am Duplicated left renal collecting system acute August 04 8:40am Family history of attention deficit hyperactivity disorder (ADHD) acute August 04, 2024 8:40am Family history of history of Go de la Tourette's syndrome acute August 04, 2024 8:40am Marginal insertion of umbili aman cord acute August 04, 2024 8:40am acute August 04 8:40am Supervision of high-risk acute August 04, 2024 8:40am Unknown varicella vaccinatio n status acute August 04, 2024 8:40am Bradycardia acute August 31 10:13am Duplicated left renal collecting system acute August 31 10:13am Family history of attention deficit hyperactivity disorder (ADHD) acute August 31, 2024 10:13am Family history of history of Go de la Tourette's syndrome acute August 31, 2024 10:13am Marginal insertion of umbili aman cord acute August 31, 2024 10:13am acute August 31 10:13am Supervision of high-risk acute August 31, 2024 10:13am Unknown varicella vaccinatio n status acute August 31, 2024 10:13am UTI (urinary tract infection) acute September 10, 2024 1:33pm Bradycardia acute September 16, 2024 9:25am Duplicated left renal collecting system acute September 16, 2024 9:25am Family history of attention deficit hyperactivity disorder (ADHD) acute September 16, 2024 9: 25am Family history of history of Go de la Tourette's syndrome acute September 16, 2024 9: 25am Marginal insertion of umbili aman cord acute September 16, 2024 9: 25am acute September 16, 2024 9:25am Supervision of high-risk acute September 16, 2024 9: 25am Unknown varicella vaccinatio n status acute September 16, 2024 9: 25am UTI (urinary tract infection) acute September 16, 2024 9:25am Bradycardia acute September 28 10:59am Duplicated left renal collecting system acute September 28, 2024 10:59am Family history of attention deficit hyperactivity disorder (ADHD) acute September 28, 2024 1 0:59am Family history of history of Go de la Tourette's syndrome acute September 28, 2024 1 0:59am Marginal insertion of umbili aman cord acute September 28, 2024 1 0:59am acute September 28, 2024 10:59am Supervision of high-risk acute September 28, 2024 1 0:59am Unknown varicella vaccinatio n status acute September 28, 2024 1 0:59am UTI (urinary tract infection) acute September 28, 2024 10:59am [facility] Work Phone: 1(742) 664-206801-21-2025 Evaluation note* Diagnosis Onset Date Resolution Status Admit Date Bradycardia acute June 07, 2024 2:35pm Family history of attention deficit hyperactivity disorder (ADHD) acute June 07 2:35pm Family history of history of Go de la Tourette's syndrome acute June 07 2:35pm acute June 07, 2024 2:35pm Supervision of high-risk acute June 07 2:35pm Unknown varicella vaccinatio n status acute June 07 2:35pm Bradycardia acute June 11:28am Family history of attention deficit hyperactivity disorder (ADHD) acute July 07 025 11:28am Family history of history of Go de la Tourette's syndrome acute July 07 11:28am acute July 07, 2024 11:28am Supervision of high-risk acute July 07 11:28am Unknown varicella vaccinatio n status acute July 07, 025 11:28am Bradycardia acute August 04 8:40am Duplicated left renal collecting system acute August 04 8:40am Family history of attention deficit hyperactivity disorder (ADHD) acute August 04, 2024 8:40am Family history of history of Go de la Tourette's syndrome acute August 04, 2024 8:40am Marginal insertion of umbili aman cord acute August 04, 2024 8:40am acute August 04 8:40am Supervision of high-risk acute August 04, 2024 8:40am Unknown varicella vaccinatio n status acute August 04, 2024 8:40am Bradycardia acute Yadira 16th, 2 025 10:13am Duplicated left renal collecting system acute August 31 10:13am Family history of attention deficit hyperactivity disorder (ADHD) acute August 31, 2024 10:13am Family history of history of Go de la Tourette's syndrome acute August 31, 2024 10:13am Marginal insertion of umbili aman cord acute August 31, 2024 10:13am acute August 31 10:13am Supervision of high-risk acute August 31, 2024 10:13am Unknown varicella vaccinatio n status acute August 31, 2024 10:13am UTI (urinary tract infection) acute September 10, 2024 1:33pm Bradycardia acute September 16, 2024 9:25am Duplicated left renal collecting system acute September 16, 2024 9:25am Family history of attention deficit hyperactivity disorder (ADHD) acute September 16, 2024 9: 25am Family history of history of Go de la Tourette's syndrome acute September 16, 2024 9: 25am Marginal insertion of umbili aman cord acute September 16, 2024 9: 25am acute September 16, 2024 9:25am Supervision of high-risk acute September 16, 2024 9: 25am Unknown varicella vaccinatio n status acute September 16, 2024 9: 25am UTI (urinary tract infection) acute September 16, 2024 9:25am Duplicated left renal collecting system acute September 28, 2024 10:59am Family history of attention deficit hyperactivity disorder (ADHD) acute September 28, 2024 1 0:59am Family history of history of Go de la Tourette's syndrome acute September 28, 2024 1 0:59am Marginal insertion of umbili aman cord acute September 28, 2024 1 0:59am acute September 28, 2024 10:59am Supervision of high-risk acute September 28, 2024 1 0:59am Unknown varicella vaccinatio n status acute September 28, 2024 1 0:59am UTI (urinary tract infection) acute September 28, 2024 10:59am [facility] Work Phone: Progress note Author Roselyn Cotto [facility] Note Date/Time October 27, 2024 9:19 am [facility] [address] [place] [address], [address] [place] [address] OFFICE VISIT Date of Service: 10/27/24 MR#: [id number] Acct: [id number] Name: GURPREET SERNA Rep #: [id number] : 2000 Provider: TAMANNA Cotto Age/Sex: 24/F Location: [facility] [place] Status: Signed Intake Vital Signs 08/04/24 08:46 10/13/24 09:46 10/27/24 09:02 10/27/24 09:06 Height 5 ft 3 in 5 ft 3 in 5 ft 3 in 5 ft 3 in Weight: 127 lb 4 oz BMI 22.5 BP 115/71 Intake Visit Reasons: 32wk ob Technology Sales Representative Required: No Is patient in pain?: No Allergies Penicillins Allergy (Mild, Verified 10/27/24 09:02) Rash Medications ?Medication ?Instructions ?Recorded ?Confirmed ?Type multivit-min no.71-iron fum 28 cap PO 04/29/24 5 History mg-folate no.1 1 mg-dha 300 mg capsule (PNV-[place]) Last Menstrual Period: 03/09/24 Zika: Zika virus screening: Negative : No PFSH 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: No pets and animals: Yes pets and animals: dog(s) history of recent travel: No sexually active: Yes Smoking Status: Never smoker alcohol intake: current alcohol intake frequency: a few times a month details: Not while substance use type: does not use well-balanced diet: about half the time caffeine: Yes Type: coffee Number of servings: 1 eating out: rarely or never during the past year weight has: remained stable what type of physical activity do you participate in: running frequency: daily duration: 30-45 minutes/day sandip/buddhism: Anabaptism seatbelt use: always do you feel safe at home: Yes additional social history: [place]- Johanne.F.O. at [employer] [facility] [employer] History 1 Elective abortions Hx Para 0 Spontaneous abortions Hx # Term Pregnancies Ectopic pregnancies Hx # Pregnancies Multiple births # of living children HPI 32wk ob Details: GURPREET SERNA is a 24 year old who presents for routine OB visit. OB Visit SHAREE Calculator Estimated Delivery Date Method Current WG Current Estimate 12/16/24 LMP (Certain) 32w 6d Expected Delivery Route/Plan Labor Preferences- CB/BF classes: encourage labor support person: [place] labor intervention preferences: [] pain management options preferred: epidural cut cord/dad catch: no : yes PP control planned: discussed discussed possible routes of delivery and associated risks: [] special requests: [] Specific Issue/Plans Covid status: [] Flu vaccine: [] Tdap vaccine: [] Rhogam: NA LARC form signed: yes Problem list reviewed and updated with the most current plan of care details and appropriate orders placed. Relevant counseling for the gestational age provided. Continue routine care and follow up unless otherwise noted in visit notes/problem list details Initial Weight: 116 lb Date -?-?-?-?-?-?-?-?-?-?-?-?- EGA Weight BP Urine Prot -?-?-?-?-?-?-?-?-?-?-?-?- Glucose FHR FuHt Pres Dilation -?-?-?-?-?-?-?-?-?-?-?-?- Effaced St Visit Note 05/06/24 -?-?-?-?-?-?-?-?-?-?-?-?- 8w 0d 116 lb 6 oz (+6 oz) 132/88 -?-?-?-?-?-?-?-?-?-?--?-?- 171 -?-?-?-?-?-?-?-?-?-?-?-?- LC- 1.67. LC- CRL 1.67 con with LMP. d eclines genetic screening today. LC- CRL 1.67 con with LMP. d eclines genetic screening today. recommended 1mg folic acid for family hx of cleft lip 06/07/24 -?-?-?-?-?-?-?-?-?-?-?-?- 12w 4d 119 lb 6 oz (+3 lb 6 oz) 122/78 Negative -?-?-?-?-?-?-?-?-?-?-?-?- Negative 175 -?-?-?-?-?-?-?-?-?-?-?-?- JV- no cramping or bleeding c/o constipation. we discussed remedies. anatomy scan ordered with mf. 07/07/24 -?-?-?-?-?-?-?-?-?-?-?-?- 16w 6d 126 lb 2 oz (+10 lb 2 oz) 108/72 Negative -?-?-?-?-?-?-?-?-?-?-?-?- Negative 145 -?-?-?-?-?-?-?-?-?-?-?-?- KW- no vb/crampi ng. anatomy US on 07/19. AFP declined. 08/04/24 -?-?-?-?-?-?-?-?-?-?-?-?- 20w 6d 128 lb 2 oz (+12 lb 2 oz) 113/70 Negative -?-?-?-?-?-?-?-?-?-?-?-?- Negative 135 -?-?-?-?-?-?-?-?-?-?-?-?- JV- no complaint s today. 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 08/31/24 -?-?-?-?-?-?-?-?-?-?-?-?- 24w 5d 130 lb 4 oz (+14 lb 4 oz) 109/70 Negative -?-?-?-?-?-?-?-?-?-?-?-?- Negative 135 24 -?-?-?-?-?-?-?-?-?-?-?-?- KW- no vb/lof/ct x. good fm. glucose next visit. has US scheduled. 09/16/24 -?-?-?-?-?-?-?-?-?-?-?-?- 27w 0d 127 lb 8 oz (+11 lb 8 oz) 107/72 Trace -?-?-?-?-?-?-?-?-?-?-?-?- Negative 140 27 -?-?-?-?-?-?-?-?-?-?-?-?- SM- no vb lof go od fm no regualr ctx SM- no vb lof good fm no reg ualr ctx having dysuria urgency frequency little improvement with macrobid and culture negative, repeat testing today 09/28/24 -?-?-?-?-?-?-?-?-?-?-?-?- 28w 5d 128 lb 8 oz (+12 lb 8 oz) 106/70 Negative -?-?-?-?-?-?-?-?-?-?-?-?- Negative 143 28 -?-?-?-?-?-?-?-?-?-?-?-?- MH-No VB. LOF. G ood FM. Reviewed MFM US for duplicate renal system on left. Rpt US 4 wk. 28 wk labs pending. Larc. Undecided on tdap 10/13/24 -?-?-?-?-?-?-?-?-?-?-?-?- 30w 6d 126 lb 2 oz (+10 lb 2 oz) 111/72 Negative -?-?-?-?-?-?-?-?-?-?-?-?- Negative 135 30 -?-?-?-?-?-?-?-?-?-?-?-?- SM- no vb lof go od fm n o regular ctx discussed tdap 10/27/24 -?-?-?-?-?-?-?-?-?-?-?-?- 32w 6d 127 lb 4 oz (+11 lb 4 oz) 115/71 Trace -?-?-?-?-?-?-?-?-?-?-?-?- Negative 135 31 -?-?-?-?-?-?-?-?-?-?-?-?- KW- no vb/lof/ct x. good fm. Has CBE classes scheduled. growth US next week. ACOG First Trimester First Trimester: Desire for , Alcohol, Tobacco Cessation, Illicit/Recreational Drug/Substance Use, Intimate Partner Violence, Barriers to care, Unstable Housing, Communication Barriers, Environmental/Work Hazards, Anticipated Course of Care, Toxoplasmosis Precations, Use of Any medications, Sexual activity, Exercise, Dental Care, Sauna/Hot tub use, Seat Belt use, Childbirth classes/Hospital facilities, Travel, Indications for Ultrasound and Screening for Aneuploidy; Discussed Second Trimester Second Trimester: Signs and Symptoms of Labor, Selecting a care provider and Reproductive Life Planning & Contreception; Discussed Tobacco Cessation, Discussed Depression/Anxiety and Discussed Intimate Partner Violence Third Trimester Third Trimester: Pain Management Plans, Labor support person(s), Immediate Larc, Movement Monitoring, Signs and Symptoms of Preeclampsia, Feeding No , [place] Education and Family Medical Leave or Disability Forms; Discussed Circumcision preference, Discussed Tobacco Cessation, Discussed Depression and Discussed Intimate Partner Violence ROS Const Reports system reviewed and no additional complaints, except as documented Eyes Reports system reviewed and no additional complaints, except as documented ENT Reports system reviewed and no additional complaints, except as documented Card Reports system reviewed and no additional complaints, except as documented Resp Reports system reviewed and no additional complaints, except as documented GI Reports system reviewed and no additional complaints, except as documented, Denies nausea and Denies vomiting Reports system reviewed and no additional complaints, except as documented Musc Reports system reviewed and no additional complaints, except as documented Skin/Breast Reports system reviewed and no additional complaints, except as documented Neuro Yes system reviewed and no additional complaints, except as documented Psych Reports system reviewed and no additional complaints, except as documented Endo Reports system reviewed and no additional complaints, except as documented John/Lymph Reports system reviewed and no additional complaints, except as documented Aller/Immun Reports system reviewed and no additional complaints, except as documented Exam Const General: cooperative, healthy appearing and no acute distress Orientation: alert, awake and oriented x3 Neck Neck: normal visual inspection and full ROM Resp Effort & Inspection: normal respiratory effort, able to speak in complete sentences and symmetric chest movement GI Inspection: normal to inspection Palpation: soft and other Other: gravid Skin General: no rashes or lesions noted Neuro General: patient alert, patient awake and patient oriented x3 Cognition: normal cognition Speech: speech normal Gait: normal gait Motor: muscle tone normal throughout Extrem General: normal to inspection and full ROM Psych Appearance: grossly normal Mental Status: mental status grossly normal Mood: congruent mood Affect: normal affect Speech and Movement: speech and movement normal Attitude: cooperative Thought Process: normal Thought Content: normal Judgment: judgment good Results POC Urinalysis 2 Dip (Clinic) Office Urine Glucose Negative Last Edit by Micheal Haddad on 10/27/24 09:08 Office Urine Protein Trace Last Edit by Micheal Haddad on 10/27/24 09:08 Coding Level of Care Code OB Routine Diagnoses Acute cystitis with hematuria N30.01 Hematuria presence: with hematuria Urinary tract infection type: acute cystitis Marginal insertion of umbilical cord 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 Unknown varicella vaccination status Z78.9 Family history of attention deficit hyperactivity disorder (ADHD) Z81.8 Family history of history of Go de la Tourette's syndrome Z81.8 Supervision of high risk in third trimester O09.93 Trimester: third trimester 32 weeks gestation of Z3A.32 Weeks of gestation: 32 weeks Assessment and Plan Assessment and Plan (1) UTI (urinary tract infection): Status: Acute Qualifiers: Hematuria presence: with hematuria Urinary tract infection type: acute cystitis Qualified Code(s): N30.01 - Acute cystitis with hematuria Comment: Rpt culture neg (2) Marginal insertion of umbilical cord: Status: Acute (3) Duplicated left renal collecting system: Status: Acute Comment: confirmed MFM: growth US Q4wk. Ped urology consult 1mo pp. May need antibiotics if obstructive uropathy occurs. Normal echo (4) Unknown varicella vaccination status: Status: Acute Comment: Pt has not had varicella, varicella titer- NON immune (5) Family history of attention deficit hyperactivity disorder (ADHD): Status: Acute Comment: Brother (6) Family history of history of Go de la Tourette's syndrome: Status: Acute Comment: Both brothers have tourette's (7) Supervision of high-risk : Status: Acute Qualifiers: Trimester: third trimester Qualified Code(s): O09.93 - Supervision of high risk , unspecified, third trimester Comment: PRR , SHAREE 12/14/24, girl [place] Bora (8) : Status: Acute Qualifiers: Weeks of gestation: 32 weeks Qualified Code(s): Z3A.32 - 32 weeks gestation of Comment: elects NIPT with gender, undecided about Carrier testing Orders: Orders POC Urinalysis 2 Dip (Clinic) Today Plan Details Additional Comments: ACOG trimester education reviewed and updated. see problem list details for updated plan management information and see below for orders placed at this visit. GA appropriate handout given. 10/27/24 0919 <Electronically signed by Roselyn espino CNM> Date _ Roselyn Cotto CNM Cosigner Signature: Date (if applicable) CC: ~ [facility] Work Phone: Progress note Author Roselyn Cotto [facility] Note Date/Time November 21, 2024 10:57 am [facility] [address] [place] [address], [address] [place] [address] OFFICE VISIT Date of Service: 11/21/24 MR#: [id number] Acct: [id number] Name: GURPREET SERNA Rep #: [id number] : 2000 Provider: TAMANNA Cotto Age/Sex: 24/F Location: [facility] [place] Status: Signed Intake Vital Signs 09/16/24 09:31 11/01/24 10:58 11/14/24 08:52 11/21/24 10:10 Height 5 ft 3 in 5 ft 2 in 5 ft 2 in 5 ft 2 in Weight: 127 lb 6 oz BMI 23.3 BP 108/66 Intake Visit Reasons: 36wk ob/nst Chief Complaint: 36wk Ob/nst Technology Sales Representative Required: No Is patient in pain?: No Allergies Penicillins Allergy (Mild, Verified 11/21/24 10:12) Rash Medications ?Medication ?Instructions ?Recorded ?Confirmed ?Type multivit-min no.71-iron fum 28 cap PO 04/29/24 5 History mg-folate no.1 1 mg-dha 300 mg capsule (PNV-[place]) Last Menstrual Period: 03/09/24 : No Have you fallen in the past year?: No PFSH 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: No pets and animals: Yes pets and animals: dog(s) history of recent travel: No sexually active: Yes Smoking Status: Never smoker alcohol intake: current alcohol intake frequency: a few times a month details: Not while substance use type: does not use well-balanced diet: about half the time caffeine: Yes Type: coffee Number of servings: 1 eating out: rarely or never during the past year weight has: remained stable what type of physical activity do you participate in: running frequency: daily duration: 30-45 minutes/day sandip/buddhism: Anabaptism seatbelt use: always do you feel safe at home: Yes additional social history: [place]- C[facility]F.[facility]. [facility] [facility] History 1 Elective abortions Hx Para 0 Spontaneous abortions Hx # Term Pregnancies Ectopic pregnancies Hx # Pregnancies Multiple births # of living children HPI 36wk ob/nst Details: GURPREET SERNA is a 24 year old who presents for routine OB visit. OB Visit SHAREE Calculator Estimated Delivery Date Method Current WG Current Estimate 12/16/24 LMP (Certain) 36w 3d Expected Delivery Route/Plan Labor Preferences- CB/BF classes: encourage labor support person: Bora labor intervention preferences: [] pain management options preferred: epidural cut cord/dad catch: no : yes PP control planned: discussed discussed possible routes of delivery and associated risks: [] special requests: [] Specific Issue/Plans Covid status: [] Flu vaccine: [] Tdap vaccine: [] Rhogam: NA LARC form signed: yes Problem list reviewed and updated with the most current plan of care details and appropriate orders placed. Relevant counseling for the gestational age provided. Continue routine care and follow up unless otherwise noted in visit notes/problem list details Initial Weight: 116 lb Date -?-?-?-?-?-?-?-?-?-?-?-?- EGA Weight BP Urine Prot -?-?-?-?-?-?-?-?--?-?-?-?- Glucose FHR FuHt Pres Dilation -?-?-?-?-?-?-?-?-?-?-?-?- Effaced St Visit Note 05/06/24 -?-?-?-?-?-?-?-?-?-?-?-?- 8w 0d 116 lb 6 oz (+6 oz) 132/88 -?-?-?-?-?-?-?-?-?-?-?-?- 171 -?-?-?-?-?-?-?-?-?-?-?-?- LC- 1.67. LC- CRL 1.67 con with LMP. d [facility] genetic screening today. LC- CRL 1.67 con with LMP. d [facility] genetic screening today. recommended 1mg folic acid for family hx of cleft lip 06/07/24 -?-?-?-?-?-?-?-?-?-?-?-?- 12w 4d 119 lb 6 oz (+3 lb 6 oz) 122/78 Negative -?-?-?-?-?-?-?-?-?-?-?-?- Negative 175 -?-?-?-?-?-?-?-?-?-?-?-?- JV- no cramping or bleeding c/o constipation. we discussed remedies. anatomy scan ordered with mfm. 07/07/24 -?-?-?-?-?-?-?-?-?-?-?-?- 16w 6d 126 lb 2 oz (+10 lb 2 oz) 108/72 Negative -?-?-?-?-?-?-?-?-?-?-?-?- Negative 145 -?-?-?-?-?-?-?-?-?-?-?-?- KW- no vb/crampi ng. anatomy US on 07/19. AFP declined. 08/04/24 -?-?-?-?-?-?-?-?-?-?-?-?- 20w 6d 128 lb 2 oz (+12 lb 2 oz) 113/70 Negative -?-?-?-?-?-?-?-?-?-?-?-?- Negative 135 -?-?-?-?-?--?-?-?-?-?-?-?- JV- no complaint s today. 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 08/31/24 -?-?-?-?-?-?-?-?-?-?-?-?- 24w 5d 130 lb 4 oz (+14 lb 4 oz) 109/70 Negative -?-?-?-?-?-?-?-?-?-?-?-?- Negative 135 24 -?-?-?-?-?-?-?-?-?-?-?-?- KW- no vb/lof/ct x. good fm. glucose next visit. has US scheduled. 09/16/24 -?-?-?-?-?-?-?-?-?-?-?-?- 27w 0d 127 lb 8 oz (+11 lb 8 oz) 107/72 Trace -?-?-?-?-?-?-?-?-?--?-?-?- Negative 140 27 -?-?-?-?-?-?-?-?-?-?-?-?- SM- no vb lof go od fm no regualr ctx SM- no vb lof good fm no reg ualr ctx having dysuria urgency frequency little improvement with macrobid and culture negative, repeat testing today 09/28/24 -?-?-?-?-?-?-?-?-?-?-?-?- 28w 5d 128 lb 8 oz (+12 lb 8 oz) 106/70 Negative -?-?-?-?-?-?-?-?-?-?-?-?- Negative 143 28 -?-?-?-?-?-?-?-?-?-?-?-?- MH-No VB. LOF. G ood FM. Reviewed MFM US for duplicate renal system on left. Rpt US 4 wk. 28 wk labs pending. Larc. Undecided on tdap 10/13/24 -?-?-?-?-?-?-?-?-?-?-?-?- 30w 6d 126 lb 2 oz (+10 lb 2 oz) 111/72 Negative -?-?-?-?-?-?-?-?-?-?-?-?- Negative 135 30 -?-?-?-?-?-?-?-?-?-?-?-?- SM- no vb lof go od fm n o regular ctx discussed tdap 10/27/24 -?-?--?-?-?-?-?-?-?-?-?-?- 32w 6d 127 lb 4 oz (+11 lb 4 oz) 115/71 Trace -?-?-?-?-?-?-?-?-?-?-?-?- Negative 135 31 -?-?-?-?-?-?-?-?-?-?-?-?- KW- no vb/lof/ct x. good fm. Has CBE classes scheduled. growth US next week. 11/07/24 -?-?-?-?-?-?-?-?-?-?-?-?- 34w 3d 127 lb 2 oz (+11 lb 2 oz) 110/68 Negative -?-?-?-?-?-?-?-?-?-?-?-?- Negative 140 -?-?-?-?-?-?-?-?-?-?-?-?- MH-reactive NST. No VB, LOF. Good Fm. Denies concerns. Appt scheduled:BPP wkly w MFM, growth US Q4w, wkly NST w [facility] 11/14/24 -?-?-?-?-?-?-?-?-?-?-?-?- 35w 3d 5 lb 2 oz (-110 lb 14 oz) 113/72 Trace -?-?-?-?-?-?-?-?-?-?-?-?- Negative 140 -?-?-?-?-?-?-?-?-?-?-?-?- JV- reactive NST . no complaints. has bpp 11/21/24 -?-?-?-?-?-?-?-?-?-?-?-?- 36w 3d 127 lb 6 oz (+11 lb 6 oz) 108/66 Negative -?-?-?-?-?-?-?-?-?-?-?-?- Negative 125 32 Cephalic 1 -?-?-?-?-?-?-?-?-?-?-?-?- 70 -2 KW- no vb/ lof/ctx. good fm. NST reactive. BPP . Requesting IOL on evening of 12/04. next growth US is 12/01. GBS today. ACOG First Trimester First Trimester: Desire for , Alcohol, Tobacco Cessation, Illicit/Recreational Drug/Substance Use, Intimate Partner Violence, Barriers to care, Unstable Housing, Communication Barriers, Environmental/Work Hazards, Anticipated Course of Care, Toxoplasmosis Precations, Use of Any medications, Sexual activity, Exercise, Dental Care, Sauna/Hot tub use, Seat Belt use, Childbirth classes/Hospital facilities, Travel, Indications for Ultrasound and Screening for Aneuploidy; Discussed Second Trimester Second Trimester: Signs and Symptoms of Labor, Selecting a care provider and Reproductive Life Planning & Contreception; Discussed Tobacco Cessation, Discussed Depression/Anxiety and Discussed Intimate Partner Violence Third Trimester Third Trimester: Pain Management Plans, Labor support person(s), Immediate Larc, Movement Monitoring, Signs and Symptoms of Preeclampsia, Feeding No , [place] Education and Family Medical Leave or Disability Forms; Discussed Circumcision preference, Discussed Tobacco Cessation, Discussed Depression and Discussed Intimate Partner Violence Office Procedures Non-stress Test Non-Stress Test Indications for Monitoring: Yes IUGR Heart Rate Baseline: 125 Heart Rate Variability: moderate Movement: Present Heart Rate Accelerations: Present Decelerations: Absent Contractions: Absent Impression: Yes Reactive Non-Stress Test Results POC Urinalysis 2 Dip (Clinic) Office Urine Glucose Negative Last Edit by Whitney Buckley on 11/21/24 10:23 Office Urine Protein Negative Last Edit by Whitney Buckley on 11/21/24 10:23 Coding Level of Care Code OB Routine Diagnoses growth restriction Decreased movement affecting management of , antepartum, single or unspecified fetus O36.8190 Fetus number: single or unspecified fetus Acute cystitis with hematuria N30.01 Hematuria presence: with hematuria Urinary tract infection type: acute cystitis Marginal insertion of umbilical cord 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 Growth US [id number] growth/BPP (2) Decreased movement affecting management of mother, antepartum: Status: Acute Qualifiers: Fetus number: single or unspecified fetus Qualified Code(s): O36.8190 - Decreased movements, unspecified trimester, not applicable or unspecified (3) UTI (urinary tract infection): Status: Acute Qualifiers: Hematuria presence: with hematuria Urinary tract infection type: acute cystitis Qualified Code(s): N30.01 - Acute cystitis with hematuria Comment: Rpt culture neg (4) Marginal insertion of umbilical cord: Status: Acute (5) Duplicated left renal collecting system: Status: Acute Comment: confirmed MFM: growth US Q4wk. Ped urology consult 1mo pp. May need antibiotics if obstructive uropathy occurs. Normal echo (6) Unknown varicella vaccination status: Status: Acute Comment: Pt has not had varicella, varicella titer- NON immune (7) Family history of attention deficit hyperactivity disorder (ADHD): Status: Acute Comment: Brother (8) Family history of history of Go de la Tourette's syndrome: Status: Acute Comment: Both brothers have tourette's (9) Supervision of high-risk : Status: Acute Qualifiers: Trimester: third trimester Qualified Code(s): O09.93 - Supervision of high risk , unspecified, third trimester Comment: PRR , SHAREE 12/14/24, girl [place] Bora (10) : Status: Acute Qualifiers: Weeks of gestation: 36 weeks Qualified Code(s): Z3A.36 - 36 weeks gestation of Comment: elects NIPT with gender, undecided about Carrier testing Orders: Orders POC Urinalysis 2 Dip (Clinic) Today OB NST Today O09.93 - Supervision of high risk , unspecified, third trimester, 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 Note Date/Time November 30, 2024 9:54 am [facility] [address], [address] [place] [address] OFFICE VISIT Date of Service: 11/30/24 MR#: [id number] Acct: [id number] Name: GURPREET SERNA Rep #: [id number] : 2000 Provider: Dr. 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 Required: No Is patient in pain?: No Allergies Penicillins Allergy (Mild, Verified 11/30/24 09:27) Rash Medications ?Medication ?Instructions ?Recorded ?Confirmed ?Type multivit-min no.71-iron fum 28 cap PO 04/29/24 5 History mg-folate no.1 1 mg-dha 300 mg capsule (PNV-[place]) Last Menstrual Period: 03/09/24 Zika: Zika virus screening: Negative : No PFSH 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: No pets and animals: Yes pets and animals: dog(s) history of recent travel: No sexually active: Yes Smoking Status: Never smoker alcohol intake: current alcohol intake frequency: a few times a month details: Not while substance use type: does not use well-balanced diet: about half the time caffeine: Yes Type: coffee Number of servings: 1 eating out: rarely or never during the past year weight has: remained stable what type of physical activity do you participate in: running frequency: daily duration: 30-45 minutes/day sandip/buddhism: Anabaptism seatbelt use: always do you feel safe at home: Yes additional social history: [place]ora- 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 OB Visit SHAREE Calculator Estimated Delivery Date Method Current WG Current Estimate 12/16/24 LMP (Certain) 37w 5d Expected Delivery Route/Plan Labor Preferences- CB/BF classes: encourage labor support person: Bora labor intervention preferences: [] pain management options preferred: epidural cut cord/dad catch: no : yes PP control planned: discussed discussed possible routes of delivery and associated risks: [] special requests: [] Specific Issue/Plans Covid status: [] Flu vaccine: [] Tdap vaccine: [] Rhogam: NA LARC form signed: yes Problem list reviewed and updated with the most current plan of care details and appropriate orders placed. Relevant counseling for the gestational age provided. Continue routine care and follow up unless otherwise noted in visit notes/problem list details Initial Weight: 116 lb Date -?-?-?-?-?-?-?-?-?-?-?-?- EGA Weight BP Urine Prot -?-?-?-?-?-?-?-?-?-?-?-?- Glucose FHR FuHt Pres Dilation -?-?-?-?-?-?-?-?-?-?-?-?- Effaced St Visit Note 05/06/24 -?-?-?-?-?-?-?-?-?-?-?-?- 8w 0d 116 lb 6 oz (+6 oz) 132/88 -?-?-?-?-?-?-?-?-?-?-?-?- 171 -?-?-?-?-?-?-?-?-?-?-?-?- LC- 1.67. LC- CRL 1.67 con with LMP. d [facility] genetic screening today. LC- CRL 1.67 con with LMP. d [facility] genetic screening today. recommended 1mg folic acid for family hx of cleft lip 06/07/24 -?-?-?-?-?-?-?-?-?-?-?-?- 12w 4d 119 lb 6 oz (+3 lb 6 oz) 122/78 Negative -?-?-?-?-?-?-?-?-?-?-?-?- Negative 175 -?-?-?-?-?-?-?-?-?-?-?-?- JV- no cramping or bleeding c/o constipation. we discussed remedies. anatomy scan ordered with mfm. 07/07/24 -?-?-?-?-?-?-?-?-?-?-?-?- 16w 6d 126 lb 2 oz (+10 lb 2 oz) 108/72 Negative -?-?-?-?-?-?-?-?-?-?-?-?- Negative 145 -?-?-?-?-?-?-?-?-?-?-?-?- KW- no vb/crampi ng. anatomy US on 07/19. AFP declined. 08/04/24 -?-?-?-?-?-?-?-?-?-?-?-?- 20w 6d 128 lb 2 oz (+12 lb 2 oz) 113/70 Negative -?-?-?-?-?-?-?-?-?-?-?-?- Negative 135 -?-?-?-?-?-?-?-?-?-?-?-?- JV- no complaint s today. 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 08/31/24 -?-?-?-?-?-?-?-?-?-?-?-?- 24w 5d 130 lb 4 oz (+14 lb 4 oz) 109/70 Negative -?-?-?-?-?-?-?-?-?-?-?-?- Negative 135 24 -?-?-?-?-?-?-?-?-?-?-?-?- KW- no vb/lof/ct x. good fm. glucose next visit. has US scheduled. 09/16/24 -?-?-?-?-?-?-?-?-?-?-?-?- 27w 0d 127 lb 8 oz (+11 lb 8 oz) 107/72 Trace -?-?-?-?-?-?-?-?-?-?-?-?- Negative 140 27 -?-?-?-?-?-?-?-?-?-?-?-?- SM- no vb lof go od fm no regualr ctx SM- no vb lof good fm no reg ualr ctx having dysuria urgency frequency little improvement with macrobid and culture negative, repeat testing today 09/28/24 -?-?-?-?-?-?-?-?-?-?-?-?- 28w 5d 128 lb 8 oz (+12 lb 8 oz) 106/70 Negative -?-?-?-?-?-?-?-?-?-?-?-?- Negative 143 28 -?-?-?-?-?-?-?-?-?-?-?-?- MH-No VB. LOF. G ood FM. Reviewed MFM US for duplicate renal system on left. Rpt US 4 wk. 28 wk labs pending. Larc. Undecided on tdap 10/13/24 -?-?-?-?-?-?-?-?-?-?-?-?- 30w 6d 126 lb 2 oz (+10 lb 2 oz) 111/72 Negative -?-?-?-?-?-?-?-?-?-?-?-?- Negative 135 30 -?-?-?-?-?-?-?-?-?-?-?-?- SM- no vb lof go od fm n o regular ctx discussed tdap 10/27/24 -?-?-?-?-?-?-?-?-?-?-?-?- 32w 6d 127 lb 4 oz (+11 lb 4 oz) 115/71 Trace -?-?-?-?-?-?--?-?-?-?-?-?- Negative 135 31 -?-?-?-?-?-?-?-?-?-?-?-?- KW- no vb/lof/ct x. good fm. Has CBE classes scheduled. growth US next week. 11/07/24 -?-?-?-?-?-?-?-?-?-?-?-?- 34w 3d 127 lb 2 oz (+11 lb 2 oz) 110/68 Negative -?-?-?-?-?-?-?-?-?-?-?-?- Negative 140 -?-?-?-?-?-?-?-?-?-?-?--?- MH-reactive NST. No VB, LOF. Good Fm. Denies concerns. Appt scheduled:BPP wkly w MFM, growth US Q4w, wkly NST w [facility] 11/14/24 -?-?-?-?-?-?-?-?-?-?-?-?- 35w 3d 5 lb 2 oz (-110 lb 14 oz) 113/72 Trace -?-?-?-?-?-?-?-?-?-?-?-?- Negative 140 -?-?-?-?-?-?-?-?-?-?-?-?- JV- reactive NST . no complaints. has bpp day 11/21/24 -?-?-?-?-?-?-?-?-?-?-?-?- 36w 3d 127 lb 6 oz (+11 lb 6 oz) 108/66 Negative -?-?-?-?-?-?-?-?-?-?-?-?- Negative 125 32 Cephalic 1 -?-?-?-?-?-?-?-?-?-?-?-?- 70 -2 KW- no vb/ lof/ctx. good fm. NST reactive. BPP thurs. Requesting IOL on evening of 12/04. next growth US is 12/01. GBS today. 11/28/24 -?-?-?-?-?-?-?-?-?-?-?-?- 37w 3d 126 lb 6 oz (+10 lb 6 oz) 126/74 Negative -?-?-?-?-?-?-?-?-?-?-?-?- Negative 130 Cephalic 1.5 -?-?-?-?-?-?-?-?-?-?-?-?- 70 -1 SM- no vb lof good fm no reuglar ctx discussed IOL 38-39 weeks patient to call with requested date and time 11/30/24 -?-?-?-?-?-?-?-?-?-?-?-?- 37w 5d 126 lb 6 oz (+10 lb 6 oz) 111/73 Negative -?-?-?-?-?-?-?-?-?-?-?-?- Negative 140 2 -?-?-?-?-?-?-?-?-?-?-?-?- 70 -1 SM- membra taylor swept no vb lof good fm n oreuglar ctx ACOG First Trimester First Trimester: Desire for , Alcohol, Tobacco Cessation, Illicit/Recreational Drug/Substance Use, Intimate Partner Violence, Barriers to care, Unstable Housing, Communication Barriers, Environmental/Work Hazards, Anticipated Course of Care, Toxoplasmosis Precations, Use of Any medications, Sexual activity, Exercise, Dental Care, Sauna/Hot tub use, Seat Belt use, Childbirth classes/Hospital facilities, Travel, Indications for Ultrasound and Screening for Aneuploidy; Discussed Second Trimester Second Trimester: Signs and Symptoms of Labor, Selecting a care provider and Reproductive Life Planning & Contreception; Discussed Tobacco Cessation, Discussed Depression/Anxiety and Discussed Intimate Partner Violence Third Trimester Third Trimester: Pain Management Plans, Labor support person(s), Immediate Larc, Movement Monitoring, Signs and Symptoms of Preeclampsia, Feeding No , Education and Family Medical Leave or Disability Forms; Discussed Circumcision preference, Discussed Tobacco Cessation, Discussed Depression and Discussed Intimate Partner Violence Results POC Urinalysis 2 Dip (Clinic) Office Urine Glucose Negative Last Edit by Micheal Haddad on 11/30/24 09:31 Office Urine Protein Negative Last Edit by Micheal Haddad on 11/30/24 09:31 Coding Level of Care Code OB Routine Diagnoses growth restriction Acute cystitis with hematuria N30.01 Hematuria presence: with hematuria Urinary tract infection type: acute cystitis Marginal insertion of umbilical cord 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 Growth US [id number] growth/BPP (2) UTI (urinary tract infection): Status: Acute Qualifiers: Hematuria presence: with hematuria Urinary tract infection type: acute cystitis Qualified Code(s): N30.01 - Acute cystitis with hematuria Comment: Rpt culture neg (3) Marginal insertion of umbilical cord: Status: Acute (4) Duplicated left renal collecting system: Status: Acute Comment: confirmed MFM: growth US Q4wk. Ped urology consult 1mo pp. May need antibiotics if obstructive uropathy occurs. Normal echo (5) Unknown varicella vaccination status: Status: Acute Comment: Pt has not had varicella, varicella titer- NON immune (6) Family history of attention deficit hyperactivity disorder (ADHD): Status: Acute Comment: Brother (7) Family history of history of Go de la Tourette's syndrome: Status: Acute Comment: Both brothers have tourette's (8) Supervision of high-risk : Status: Acute Qualifiers: Trimester: third trimester Qualified Code(s): O09.93 - Supervision of high risk , unspecified, third trimester Comment: PRR , SHAREE 12/14/24, girl [place] (9) : Status: Acute Qualifiers: Weeks of gestation: 37 weeks Qualified Code(s): Z3A.37 - 37 weeks gestation of Comment: GBS neg, elects NIPT with gender, undecided about Carrier testing Orders: Orders POC Urinalysis 2 Dip (Clinic) Today 11/30/24 0954 <Electronically signed by Padmini adan MD> Date _ Padmini Duenas MD Cosigner Signature: Date (if applicable) CC: ~ [facility] Work Phone: Reason for referral (narrative)No reason for referral information availableWTr[facility] Work Phone: Summary Purpose Family History Relationship Condition Age at Onset Recorded Date/T anai uncle Malignant neoplasm 30 grandmother Cardiac disease 60 grandfather Diabetes mellitus 50 Advance Directives No Advanced Directives Records FoundNo Advanced Directives Records FoundNo Advanced Directives Records FoundNo Advanced Directives Records FoundNo Advanced Directives Records FoundNo Advanced Directives Records FoundNo Advanced Directives Records Found Chief Complaint and Reason for Visit Chief Complaint Admit Date 12 wk OB June 07, 2024 2 :35pm 16 WK OB July 07, 2024 11:28am 20 WK OB August 04, 2024 8:4 0am 24 WK OB August 31, 2024 10: 13am UTI ISSUES September 10, 2024 1:3 3pm F/U from urgent care for UTI sx September 16, 2024 9:25am Reason for Visit Admit Date Bradycardia June 07, 2024 2 :35pm Family history of attention deficit hyperactivity disorder (ADHD) June 07, 2024 2:35pm Family history of history of Go de la Tourette's syndrome June 07, 2024 2:35pm June 07, 2024 2 :35pm Supervision of high-risk Janua ry 2024 2:35pm Unknown varicella vaccination status [place] [facility] 2024 2:35pm Bradycardia July 07, 2024 11:28am Family history of attention deficit hyperactivity disorder (ADHD) July 07, 2024 11:28am Family history of history of Go de la Tourette's syndrome July 07, 2024 11:28am July 07, 2024 11:28am Supervision of high-risk [place] 2024 11:28am Unknown varicella vaccination status Feb ruary 2024 11:28am Bradycardia August 04, 2024 8:4 0am Duplicated left renal collecting system August 04, 2024 8:40am Family history of attention deficit hyperactivity disorder (ADHD) August 04, 2024 8:40am Family history of history of Go de la Tourette's syndrome August 04, 2024 8:40am Marginal insertion of umbilical cord [facility] 2024 8:40am August 04, 2024 8:4 0am Supervision of high-risk August 04, 2024 8:40am Unknown varicella vaccination status [facility] 2024 8:40am Bradycardia August 31, 2024 10: 13am Duplicated left renal collecting system August 31, 2024 10:13am Family history of attention deficit hyperactivity disorder (ADHD) August 31, 2024 10:13am Family history of history of Go de la Tourette's syndrome August 31, 2024 10:13am Marginal insertion of umbilical cord Apr ut 2024 10:13am August 31, 2024 10: 13am Supervision of high-risk August 31, 2024 10:13am Unknown varicella vaccination status Apr ut 2024 10:13am UTI (urinary tract infection) August 1:33pm Bradycardia September 16, 2024 9:25am Duplicated left renal collecting system September 16, 2024 9:25am Family history of attention deficit hyperactivity disorder (ADHD) September 16, 2024 9:25am Family history of history of Go de la Tourette's syndrome September 16, 2024 9:25am Marginal insertion of umbilical cord September 16, 2024 9:25am September 16, 2024 9:25am Supervision of high-risk September 162024 9:25am Unknown varicella vaccination status September 16, 2024 9:25am UTI (urinary tract infection) September 16 9:25am Chief Complaint Admit Date 12 wk OB June 07, 2024 2 :35pm 16 WK OB July 07, 2024 11:28am 20 WK OB August 04, 2024 8:4 0am 24 WK OB August 31, 2024 10: 13am UTI ISSUES September 10, 2024 1:3 3pm F/U from urgent care for UTI sx September 16, 2024 9:25am 28 wk ob/glucose September 28, 2024 10:59 am Reason for Visit Admit Date Bradycardia June 07, 2024 2 :35pm Family history of attention deficit hyperactivity disorder (ADHD) June 07, 2024 2:35pm Family history of history of Go de la Tourette's syndrome June 07, 2024 2:35pm June 07, 2024 2 :35pm Supervision of high-risk Janua ry 2024 2:35pm Unknown varicella vaccination status [place] 2024 2:35pm Bradycardia July 07, 2024 11:28am Family history of attention deficit hyperactivity disorder (ADHD) July 07, 2024 11:28am Family history of history of Go de la Tourette's syndrome July 07, 2024 11:28am July 07, 2024 11:28am Supervision of high-risk [place] 2024 11:28am Unknown varicella vaccination status Feb ruary 2024 11:28am Bradycardia August 04, 2024 8:4 0am Duplicated left renal collecting system August 04, 2024 8:40am Family history of attention deficit hyperactivity disorder (ADHD) August 04, 2024 8:40am Family history of history of Go de la Tourette's syndrome August 04, 2024 8:40am Marginal insertion of umbilical cord Mar 2024 8:40am August 04, 2024 8:4 0am Supervision of high-risk August 04, 2024 8:40am Unknown varicella vaccination status [facility] 2024 8:40am Bradycardia August 31, 2024 10: 13am Duplicated left renal collecting system August 31, 2024 10:13am Family history of attention deficit hyperactivity disorder (ADHD) August 31, 2024 10:13am Family history of history of Go de la Tourette's syndrome August 31, 2024 10:13am Marginal insertion of umbilical cord Apr 2024 10:13am August 31, 2024 10: 13am Supervision of high-risk August 31, 2024 10:13am Unknown varicella vaccination status Apr 2024 10:13am UTI (urinary tract infection) August 1:33pm Bradycardia September 16, 2024 9:25am Duplicated left renal collecting system September 16, 2024 9:25am Family history of attention deficit hyperactivity disorder (ADHD) September 16, 2024 9:25am Family history of history of Go de la Tourette's syndrome September 16, 2024 9:25am Marginal insertion of umbilical cord September 16, 2024 9:25am September 16, 2024 9:25am Supervision of high-risk September [id number] 9:25am Unknown varicella vaccination status September 16, 2024 9:25am UTI (urinary tract infection) September 16 9:25am Bradycardia September 28, 2024 10:59 am Duplicated left renal collecting system September 28, 2024 10:59am Family history of attention deficit hyperactivity disorder (ADHD) September 28, 2024 10:59am Family history of history of Go de la Tourette's syndrome September 28, 2024 10:59am Marginal insertion of umbilical cord September 28, 2024 10:59am September 28, 2024 10:59 am Supervision of high-risk September 152024 10:59am Unknown varicella vaccination status September 28, 2024 10:59am UTI (urinary tract infection) September 28, 2024 10:59am Reason for Visit Admit Date Bradycardia June 07, 2024 2 :35pm Family history of attention deficit hyperactivity disorder (ADHD) June 07, 2024 2:35pm Family history of history of Go de la Tourette's syndrome June 07, 2024 2:35pm June 07, 2024 2 :35pm Supervision of high-risk Janua ry 2024 2:35pm Unknown varicella vaccination status [place] 2024 2:35pm Bradycardia July 07, 2024 11:28am Family history of attention deficit hyperactivity disorder (ADHD) July 07, 2024 11:28am Family history of history of Go de la Tourette's syndrome July 07, 2024 11:28am July 07, 2024 11:28am Supervision of high-risk [place] 2024 11:28am Unknown varicella vaccination status Feb ruary 2024 11:28am Bradycardia August 04, 2024 8:4 0am Duplicated left renal collecting system August 04, 2024 8:40am Family history of attention deficit hyperactivity disorder (ADHD) August 04, 2024 8:40am Family history of history of Go de la Tourette's syndrome August 04, 2024 8:40am Marginal insertion of umbilical cord [facility] 2024 8:40am August 04, 2024 8:4 0am Supervision of high-risk August 04, 2024 8:40am Unknown varicella vaccination status [facility] 2024 8:40am Bradycardia August 31, 2024 10: 13am Duplicated left renal collecting system August 31, 2024 10:13am Family history of attention deficit hyperactivity disorder (ADHD) August 31, 2024 10:13am Family history of history of Go de la Tourette's syndrome August 31, 2024 10:13am Marginal insertion of umbilical cord Apr ut 2024 10:13am August 31, 2024 10: 13am Supervision of high-risk August 31, 2024 10:13am Unknown varicella vaccination status Apr ut 2024 10:13am UTI (urinary tract infection) August 1:33pm Bradycardia September 16, 2024 9:25am Duplicated left renal collecting system September 16, 2024 9:25am Family history of attention deficit hyperactivity disorder (ADHD) September 16, 2024 9:25am Family history of history of Go de la Tourette's syndrome September 16, 2024 9:25am Marginal insertion of umbilical cord September 16, 2024 9:25am September 16, 2024 9:25am Supervision of high-risk September 162024 9:25am Unknown varicella vaccination status September 16, 2024 9:25am UTI (urinary tract infection) September 16 9:25am Duplicated left renal collecting system September 28, 2024 10:59am Family history of attention deficit hyperactivity disorder (ADHD) September 28, 2024 10:59am Family history of history of Go de la Tourette's syndrome September 28, 2024 10:59am Marginal insertion of umbilical cord September 28, 2024 10:59am September 28, 2024 10:59 am Supervision of high-risk September 152024 10:59am Unknown varicella vaccination status September 28, 2024 10:59am UTI (urinary tract infection) September 28, 2024 10:59am Chief Complaint Admit Date 16 WK OB July 07, 2024 11:28am 20 WK OB August 04, 2024 8:4 0am 24 WK OB August 31, 2024 10: 13am UTI ISSUES September 10, 2024 1:3 3pm F/U from urgent care for UTI sx September 16, 2024 9:25am 28 wk ob/glucose September 28, 2024 10:59 am 30wk ob October 13, 2024 9:35a m Reason for Visit Admit Date Family history of attention deficit hyperactivity disorder (ADHD) July 07, 2024 11:28am Family history of history of Go de la Tourette's syndrome July 07, 2024 11:28am July 07, 2024 11:28am Supervision of high-risk [place] 2024 11:28am Unknown [facility]icella [facility] 11:28am Bradycardia July 07, 2024 11:28am Duplicated left renal collecting system August 04, 2024 8:40am Family history of attention deficit hyperactivity disorder (ADHD) August 04, 2024 8:40am Family history of history of Go de la Tourette's syndrome August 04, 2024 8:40am Marginal insertion of umbilical cord [facility] 2024 8:40am August 04, 2024 8:4 0am Supervision of high-risk August 04, 2024 8:40am Unknown varicella vaccination status [facility] 2024 8:40am Bradycardia August 04, 2024 8:4 0am Duplicated left renal collecting system August 31, 2024 10:13am Family history of attention deficit hyperactivity disorder (ADHD) August 31, 2024 10:13am Family history of history of Go de la Tourette's syndrome August 31, 2024 10:13am Marginal insertion of umbilical cord Apr 2024 10:13am August 31, 2024 10: 13am Supervision of high-risk August 31, 2024 10:13am Unknown varicella vaccination status Apr 2024 10:13am Bradycardia August 31, 2024 10: 13am UTI (urinary tract infection) August 1:33pm Duplicated left renal collecting system September 16, 2024 9:25am Family history of attention deficit hyperactivity disorder (ADHD) September 16, 2024 9:25am Family history of history of Go de la Tourette's syndrome September 16, 2024 9:25am Marginal insertion of umbilical cord September 16, 2024 9:25am September 16, 2024 9:25am Supervision of high-risk September 162024 9:25am Unknown varicella vaccination status September 16, 2024 9:25am UTI (urinary tract infection) September 16 9:25am Bradycardia September 16, 2024 9:25am Duplicated left renal collecting system September 28, 2024 10:59am Family history of attention deficit hyperactivity disorder (ADHD) September 28, 2024 10:59am Family history of history of Go de la Tourette's syndrome September 28, 2024 10:59am Marginal insertion of umbilical cord September 28, 2024 10:59am September 28, 2024 10:59 am Supervision of high-risk September 152024 10:59am Unknown varicella vaccination status September 28, 2024 10:59am UTI (urinary tract infection) September 28, 2024 10:59am Duplicated left renal collecting system October 13, 2024 9:35am Family history of attention deficit hyperactivity disorder (ADHD) October 13, 2024 9:35am Family history of history of Go de la Tourette's syndrome October 13, 2024 9:35am Marginal insertion of umbilical cord October 13, 2024 9:35am October 13, 2024 9:35a m Supervision of high-risk September 162024 9:35am Unknown varicella vaccination status October 13, 2024 9:35am UTI (urinary tract infection) October 13, 2024 9:35am Chief Complaint Admit Date 16 WK OB July 07, 2024 11:28am 20 WK OB August 04, 2024 8:4 0am 24 WK OB August 31, 2024 10: 13am UTI ISSUES September 10, 2024 1:3 3pm F/U from urgent care for UTI sx September 16, 2024 9:25am 28 wk ob/glucose September 28, 2024 10:59 am 30wk ob October 13, 2024 9:35a m 32wk ob October 27, 2024 8:49 am Reason for Visit Admit Date Family history of attention deficit hyperactivity disorder (ADHD) July 07, 2024 11:28am Family history of history of Go de la Tourette's syndrome July 07, 2024 11:28am July 07, 2024 11:28am Supervision of high-risk [place] 2024 11:28am Unknown varicella vaccination status Feb [facility] 2024 11:28am Bradycardia July 07, 2024 11:28am Duplicated left renal collecting system August 04, 2024 8:40am Family history of attention deficit hyperactivity disorder (ADHD) August 04, 2024 8:40am Family history of history of Go de la Tourette's syndrome August 04, 2024 8:40am Marginal insertion of umbilical cord [facility] 2024 8:40am August 04, 2024 8:4 0am Supervision of high-risk August 04, 2024 8:40am Unknown varicella vaccination status [facility] 2024 8:40am Bradycardia August 04, 2024 8:4 0am Duplicated left renal collecting system August 31, 2024 10:13am Family history of attention deficit hyperactivity disorder (ADHD) August 31, 2024 10:13am Family history of history of Go de la Tourette's syndrome August 31, 2024 10:13am Marginal insertion of umbilical cord Apr [place] 2024 10:13am August 31, 2024 10: 13am Supervision of high-risk August 31, 2024 10:13am Unknown varicella vaccination status Apr ut 2024 10:13am Bradycardia August 31, 2024 10: 13am UTI (urinary tract infection) August 1:33pm Duplicated left renal collecting system September 16, 2024 9:25am Family history of attention deficit hyperactivity disorder (ADHD) September 16, 2024 9:25am Family history of history of Go de la Tourette's syndrome September 16, 2024 9:25am Marginal insertion of umbilical cord September 16, 2024 9:25am September 16, 2024 9:25am Supervision of high-risk September 162024 9:25am Unknown varicella vaccination status September 16, 2024 9:25am UTI (urinary tract infection) September 16 9:25am Bradycardia September 16, 2024 9:25am Duplicated left renal collecting system September 28, 2024 10:59am Family history of attention deficit hyperactivity disorder (ADHD) September 28, 2024 10:59am Family history of history of Go de la Tourette's syndrome September 28, 2024 10:59am Marginal insertion of umbilical cord September 28, 2024 10:59am September 28, 2024 10:59 am Supervision of high-risk September 152024 10:59am Unknown varicella vaccination status September 28, 2024 10:59am UTI (urinary tract infection) September 28, 2024 10:59am Duplicated left renal collecting system October 13, 2024 9:35am Family history of attention deficit hyperactivity disorder (ADHD) October 13, 2024 9:35am Family history of history of Go de la Tourette's syndrome October 13, 2024 9:35am Marginal insertion of umbilical cord October 13, 2024 9:35am October 13, 2024 9:35a m Supervision of high-risk September 162024 9:35am Unknown varicella vaccination status October 13, 2024 9:35am UTI (urinary tract infection) October 13, 2024 9:35am Duplicated left renal collecting system October 27, 2024 8:49am Family history of attention deficit hyperactivity disorder (ADHD) October 27, 2024 8:49am Family history of history of Go de la Tourette's syndrome October 27, 2024 8:49am Marginal insertion of umbilical cord Oct 8:49am October 27, 2024 8:49 am Supervision of high-risk October 27, 2024 8:49am Unknown varicella vaccination status Bro [facility] 2024 8:49am UTI (urinary tract infection) October 27, 2024 8:49am Chief Complaint Admit Date 16 WK OB July 07, 2024 11:28am 20 WK OB August 04, 2024 8:4 0am 24 WK OB August 31, 2024 10: 13am UTI ISSUES September 10, 2024 1:3 3pm F/U from urgent care for UTI sx September 16, 2024 9:25am 28 wk ob/glucose September 28, 2024 10:59 am 30wk ob October 13, 2024 9:35a m 32wk ob October 27, 2024 8:49 am DECREASED MOVEMENT November 01, 2024 10:05am Chief Complaint Admit Date 20 WK OB August 04, 2024 8:4 0am 24 WK OB August 31, 2024 10: 13am UTI ISSUES September 10, 2024 1:3 3pm F/U from urgent care for UTI sx September 16, 2024 9:25am 28 wk ob/glucose September 28, 2024 10:59 am 30wk ob October 13, 2024 9:35a m 32wk ob October 27, 2024 8:49 am DECREASED MOVEMENT November 01, 2024 10:05am DECREASED MOVEMENT November 01, 2024 7:06pm 34wk ob/nst November 07, 2024 1:51 pm Reason for Visit Admit Date Duplicated left renal collecting system August 04, 2024 8:40am Family history of attention deficit hyperactivity disorder (ADHD) August 04, 2024 8:40am Family history of history of Go de la Tourette's syndrome August 04, 2024 8:40am Marginal insertion of umbilical cord [facility] 2024 8:40am August 04, 2024 8:4 0am Supervision of high-risk August 04, 2024 8:40am Unknown varicella vaccination status [facility] 2024 8:40am Bradycardia August 04, 2024 8:4 0am Duplicated left renal collecting system August 31, 2024 10:13am Family history of attention deficit hyperactivity disorder (ADHD) August 31, 2024 10:13am Family history of history of Go de la Tourette's syndrome August 31, 2024 10:13am Marginal insertion of umbilical cord Apr 2024 10:13am August 31, 2024 10: 13am Supervision of high-risk August 31, 2024 10:13am Unknown varicella vaccination status Apr 2024 10:13am Bradycardia August 31, 2024 10: 13am UTI (urinary tract infection) August 1:33pm Duplicated left renal collecting system September 16, 2024 9:25am Family history of attention deficit hyperactivity disorder (ADHD) September 16, 2024 9:25am Family history of history of Go de la Tourette's syndrome September 16, 2024 9:25am Marginal insertion of umbilical cord September 16, 2024 9:25am September 16, 2024 9:25am Supervision of high-risk September 162024 9:25am Unknown varicella vaccination status September 16, 2024 9:25am UTI (urinary tract infection) September 16 9:25am Bradycardia September 16, 2024 9:25am Duplicated left renal collecting system September 28, 2024 10:59am Family history of attention deficit hyperactivity disorder (ADHD) September 28, 2024 10:59am Family history of history of Go de la Tourette's syndrome September 28, 2024 10:59am Marginal insertion of umbilical cord September 28, 2024 10:59am September 28, 2024 10:59 am Supervision of high-risk September 152024 10:59am Unknown varicella vaccination status September 28, 2024 10:59am UTI (urinary tract infection) September 28, 2024 10:59am Duplicated left renal collecting system October 13, 2024 9:35am Family history of attention deficit hyperactivity disorder (ADHD) October 13, 2024 9:35am Family history of history of Go de la Tourette's syndrome October 13, 2024 9:35am Marginal insertion of umbilical cord October 13, 2024 9:35am October 13, 2024 9:35a m Supervision of high-risk September 162024 9:35am Unknown varicella vaccination status October 13, 2024 9:35am UTI (urinary tract infection) October 13, 2024 9:35am Duplicated left renal collecting system October 27, 2024 8:49am Family history of attention deficit hyperactivity disorder (ADHD) October 27, 2024 8:49am Family history of history of Go de la Tourette's syndrome October 27, 2024 8:49am Marginal insertion of umbilical cord Oct 8:49am October 27, 2024 8:49 am Supervision of high-risk October 27, 2024 8:49am Unknown varicella vaccination status Oct 8:49am UTI (urinary tract infection) October 27, 2024 8:49am Decreased movement aff ecting management of mother, antepartum November 01, 2024 10:05am Duplicated left renal collecting system November 01, 2024 10:05am Family history of attention deficit hyperactivity disorder (ADHD) November 01, 2024 10:05am Family history of history of Go de la Tourette's syndrome November 01, 2024 10:05am Marginal insertion of umbilical cord Oct 10:05am November 01, 2024 10:0 5am Supervision of high-risk November 01, 2024 10:05am Unknown varicella vaccination status Oct e 2024 10:05am UTI (urinary tract infection) November 01, 2024 10:05am Decreased movement aff ecting management of mother, antepartum November 07, 2024 1:51pm Duplicated left renal collecting system November 07, 2024 1:51pm Family history of attention deficit hyperactivity disorder (ADHD) November 07, 2024 1:51pm Family history of history of Go de la Tourette's syndrome November 07, 2024 1:51pm growth restriction November 07, 2024 1:51pm Marginal insertion of umbilical cord Oct 1:51pm November 07, 2024 1:51 pm Supervision of high-risk November 07, 2024 1:51pm Unknown varicella vaccination status Oct 1:51pm UTI (urinary tract infection) November 07, 2024 1:51pm Chief Complaint Admit Date 20 WK OB August 04, 2024 8:4 0am 24 WK OB August 31, 2024 10: 13am UTI ISSUES September 10, 2024 1:3 3pm F/U from urgent care for UTI sx September 16, 2024 9:25am 28 wk ob/glucose September 28, 2024 10:59 am 30wk ob October 13, 2024 9:35a m 32wk ob October 27, 2024 8:49 am DECREASED MOVEMENT November 01, 2024 10:05am DECREASED MOVEMENT November 01, 2024 7:06pm 34wk ob/nst November 07, 2024 1:51 pm 35wk nst only November 14, 2024 8:48 am Reason for Visit Admit Date Duplicated left renal collecting system August 04, 2024 8:40am Family history of attention deficit hyperactivity disorder (ADHD) August 04, 2024 8:40am Family history of history of Go de la Tourette's syndrome August 04, 2024 8:40am Marginal insertion of umbilical cord [facility] 2024 8:40am August 04, 2024 8:4 0am Supervision of high-risk August 04, 2024 8:40am Unknown varicella vaccination status [facility] 2024 8:40am Bradycardia August 04, 2024 8:4 0am Duplicated left renal collecting system August 31, 2024 10:13am Family history of attention deficit hyperactivity disorder (ADHD) August 31, 2024 10:13am Family history of history of Go de la Tourette's syndrome August 31, 2024 10:13am Marginal insertion of umbilical cord Apr ut 2024 10:13am August 31, 2024 10: 13am Supervision of high-risk August 31, 2024 10:13am Unknown varicella vaccination status Apr ut 2024 10:13am Bradycardia August 31, 2024 10: 13am UTI (urinary tract infection) August 1:33pm Duplicated left renal collecting system September 16, 2024 9:25am Family history of attention deficit hyperactivity disorder (ADHD) September 16, 2024 9:25am Family history of history of Go de la Tourette's syndrome September 16, 2024 9:25am Marginal insertion of umbilical cord September 16, 2024 9:25am September 16, 2024 9:25am Supervision of high-risk September 162024 9:25am Unknown varicella vaccination status September 16, 2024 9:25am UTI (urinary tract infection) September 16 9:25am Bradycardia September 16, 2024 9:25am Duplicated left renal collecting system September 28, 2024 10:59am Family history of attention deficit hyperactivity disorder (ADHD) September 28, 2024 10:59am Family history of history of Go de la Tourette's syndrome September 28, 2024 10:59am Marginal insertion of umbilical cord September 28, 2024 10:59am September 28, 2024 10:59 am Supervision of high-risk September [id number] 10:59am Unknown varicella vaccination status September 28, 2024 10:59am UTI (urinary tract infection) September 28, 2024 10:59am Duplicated left renal collecting system October 13, 2024 9:35am Family history of attention deficit hyperactivity disorder (ADHD) October 13, 2024 9:35am Family history of history of Go de la Tourette's syndrome October 13, 2024 9:35am Marginal insertion of umbilical cord October 13, 2024 9:35am October 13, 2024 9:35a m Supervision of high-risk September [id number] 9:35am Unknown varicella vaccination status October 13, 2024 9:35am UTI (urinary tract infection) October 13, 2024 9:35am Duplicated left renal collecting system October 27, 2024 8:49am Family history of attention deficit hyperactivity disorder (ADHD) October 27, 2024 8:49am Family history of history of Go de la Tourette's syndrome October 27, 2024 8:49am Marginal insertion of umbilical cord Oct 8:49am October 27, 2024 8:49 am Supervision of high-risk October 27, 2024 8:49am Unknown varicella vaccination status Oct 8:49am UTI (urinary tract infection) October 27, 2024 8:49am Decreased movement aff ecting management of mother, antepartum November 01, 2024 10:05am Duplicated left renal collecting system November 01, 2024 10:05am Family history of attention deficit hyperactivity disorder (ADHD) November 01, 2024 10:05am Family history of history of Go de la Tourette's syndrome November 01, 2024 10:05am Marginal insertion of umbilical cord Oct e 2024 10:05am November 01, 2024 10:0 5am Supervision of high-risk November 01, 2024 10:05am Unknown varicella vaccination status Oct 10:05am UTI (urinary tract infection) November 01, 2024 10:05am Decreased movement aff ecting management of mother, antepartum November 07, 2024 1:51pm Duplicated left renal collecting system November 07, 2024 1:51pm Family history of attention deficit hyperactivity disorder (ADHD) November 07, 2024 1:51pm Family history of history of Go de la Tourette's syndrome November 07, 2024 1:51pm growth restriction November 07, 2024 1:51pm Marginal insertion of umbilical cord Oct 1:51pm November 07, 2024 1:51 pm Supervision of high-risk November 07, 2024 1:51pm Unknown varicella vaccination status Oct 1:51pm UTI (urinary tract infection) November 07, 2024 1:51pm Decreased movement aff ecting management of mother, antepartum November 14, 2024 8:48am Duplicated left renal collecting system November 14, 2024 8:48am Family history of attention deficit hyperactivity disorder (ADHD) November 14, 2024 8:48am Family history of history of Go de la Tourette's syndrome November 14, 2024 8:48am growth restriction November 14, 2024 8:48am Marginal insertion of umbilical cord Oct 8:48am November 14, 2024 8:48 am Supervision of high-risk November 14, 2024 8:48am Unknown varicella vaccination status Oct 8:48am UTI (urinary tract infection) November 14, 2024 8:48am Chief Complaint Admit Date 20 WK OB August 04, 2024 8:4 0am 24 WK OB August 31, 2024 10: 13am UTI ISSUES September 10, 2024 1:3 3pm F/U from urgent care for UTI sx September 16, 2024 9:25am 28 wk ob/glucose September 28, 2024 10:59 am 30wk ob October 13, 2024 9:35a m 32wk ob October 27, 2024 8:49 am DECREASED MOVEMENT November 01, 2024 10:05am DECREASED MOVEMENT November 01, 2024 7:06pm 34wk ob/nst November 07, 2024 1:51 pm 35wk nst only November 14, 2024 8:48 am 36wk ob/nst November 21, 2024 10:09 am Reason for Visit Admit Date Duplicated left renal collecting system August 04, 2024 8:40am Family history of attention deficit hyperactivity disorder (ADHD) August 04, 2024 8:40am Family history of history of Go de la Tourette's syndrome August 04, 2024 8:40am Marginal insertion of umbilical cord [facility] 2024 8:40am August 04, 2024 8:4 0am Supervision of high-risk August 04, 2024 8:40am Unknown varicella vaccination status [facility] 2024 8:40am Bradycardia August 04, 2024 8:4 0am Duplicated left renal collecting system August 31, 2024 10:13am Family history of attention deficit hyperactivity disorder (ADHD) August 31, 2024 10:13am Family history of history of Go de la Tourette's syndrome August 31, 2024 10:13am Marginal insertion of umbilical cord Apr 2024 10:13am August 31, 2024 10: 13am Supervision of high-risk August 31, 2024 10:13am Unknown varicella vaccination status Apr 2024 10:13am Bradycardia August 31, 2024 10: 13am UTI (urinary tract infection) August 1:33pm Duplicated left renal collecting system September 16, 2024 9:25am Family history of attention deficit hyperactivity disorder (ADHD) September 16, 2024 9:25am Family history of history of Go de la Tourette's syndrome September 16, 2024 9:25am Marginal insertion of umbilical cord September 16, 2024 9:25am September 16, 2024 9:25am Supervision of high-risk September 162024 9:25am Unknown varicella vaccination status September 16, 2024 9:25am UTI (urinary tract infection) September 16 9:25am Bradycardia September 16, 2024 9:25am Duplicated left renal collecting system September 28, 2024 10:59am Family history of attention deficit hyperactivity disorder (ADHD) September 28, 2024 10:59am Family history of history of Go de la Tourette's syndrome September 28, 2024 10:59am Marginal insertion of umbilical cord September 28, 2024 10:59am September 28, 2024 10:59 am Supervision of high-risk September 152024 10:59am Unknown varicella vaccination status September 28, 2024 10:59am UTI (urinary tract infection) September 28, 2024 10:59am Duplicated left renal collecting system October 13, 2024 9:35am Family history of attention deficit hyperactivity disorder (ADHD) October 13, 2024 9:35am Family history of history of Go de la Tourette's syndrome October 13, 2024 9:35am Marginal insertion of umbilical cord October 13, 2024 9:35am October 13, 2024 9:35a m Supervision of high-risk September 162024 9:35am Unknown varicella vaccination status October 13, 2024 9:35am UTI (urinary tract infection) October 13, 2024 9:35am Duplicated left renal collecting system October 27, 2024 8:49am Family history of attention deficit hyperactivity disorder (ADHD) October 27, 2024 8:49am Family history of history of Go de la Tourette's syndrome October 27, 2024 8:49am Marginal insertion of umbilical cord Oct 8:49am October 27, 2024 8:49 am Supervision of high-risk October 27, 2024 8:49am Unknown varicella vaccination status Oct 8:49am UTI (urinary tract infection) October 27, 2024 8:49am Decreased movement aff ecting management of mother, antepartum November 01, 2024 10:05am Duplicated left renal collecting system November 01, 2024 10:05am Family history of attention deficit hyperactivity disorder (ADHD) November 01, 2024 10:05am Family history of history of Go de la Tourette's syndrome November 01, 2024 10:05am Marginal insertion of umbilical cord Oct 10:05am November 01, 2024 10:0 5am Supervision of high-risk November 01, 2024 10:05am Unknown varicella vaccination status Oct 10:05am UTI (urinary tract infection) November 01, 2024 10:05am Decreased movement aff ecting management of mother, antepartum November 07, 2024 1:51pm Duplicated left renal collecting system November 07, 2024 1:51pm Family history of attention deficit hyperactivity disorder (ADHD) November 07, 2024 1:51pm Family history of history of Go de la Tourette's syndrome November 07, 2024 1:51pm growth restriction November 07, 2024 1:51pm Marginal insertion of umbilical cord Oct 1:51pm November 07, 2024 1:51 pm Supervision of high-risk November 07, 2024 1:51pm Unknown varicella vaccination status Oct 1:51pm UTI (urinary tract infection) November 07, 2024 1:51pm Decreased movement aff ecting management of mother, antepartum November 14, 2024 8:48am Duplicated left renal collecting system November 14, 2024 8:48am Family history of attention deficit hyperactivity disorder (ADHD) November 14, 2024 8:48am Family history of history of Go de la Tourette's syndrome November 14, 2024 8:48am growth restriction November 14, 2024 8:48am Marginal insertion of umbilical cord Oct 8:48am November 14, 2024 8:48 am Supervision of high-risk November 14, 2024 8:48am Unknown varicella vaccination status Oct 8:48am UTI (urinary tract infection) November 14, 2024 8:48am Decreased movement aff ecting management of mother, antepartum November 21, 2024 10:09am Duplicated left renal collecting system November 21, 2024 10:09am Family history of attention deficit hyperactivity disorder (ADHD) November 21, 2024 10:09am Family history of history of Go de la Tourette's syndrome November 21, 2024 10:09am growth restriction November 21, 2024 10:09am Marginal insertion of umbilical cord Nov 10:09am November 21, 2024 10:09 am Supervision of high-risk November 21, 2024 10:09am Unknown varicella vaccination status Nov 10:09am UTI (urinary tract infection) November 21, 2024 10:09am Chief Complaint Admit Date 20 WK OB August 04, 2024 8:4 0am 24 WK OB August 31, 2024 10: 13am UTI ISSUES September 10, 2024 1:3 3pm F/U from urgent care for UTI sx September 16, 2024 9:25am 28 wk ob/glucose September 28, 2024 10:59 am 30wk ob October 13, 2024 9:35a m 32wk ob October 27, 2024 8:49 am DECREASED MOVEMENT November 01, 2024 10:05am DECREASED MOVEMENT November 01, 2024 7:06pm 34wk ob/nst November 07, 2024 1:51 pm 35wk nst only November 14, 2024 8:48 am 36wk ob/nst November 21, 2024 10:09 am 37wk ob/nst November 28, 2024 8:18 am Reason for Visit Admit Date Duplicated left renal collecting system August 04, 2024 8:40am Family history of attention deficit hyperactivity disorder (ADHD) August 04, 2024 8:40am Family history of history of Go de la Tourette's syndrome August 04, 2024 8:40am Marginal insertion of umbilical cord [facility] 2024 8:40am August 04, 2024 8:4 0am Supervision of high-risk August 04, 2024 8:40am Unknown varicella vaccination status [facility] 2024 8:40am Bradycardia August 04, 2024 8:4 0am Duplicated left renal collecting system August 31, 2024 10:13am Family history of attention deficit hyperactivity disorder (ADHD) August 31, 2024 10:13am Family history of history of Go de la Tourette's syndrome August 31, 2024 10:13am Marginal insertion of umbilical cord Apr 2024 10:13am August 31, 2024 10: 13am Supervision of high-risk August 31, 2024 10:13am Unknown varicella vaccination status Apr 2024 10:13am Bradycardia August 31, 2024 10: 13am UTI (urinary tract infection) August 1:33pm Duplicated left renal collecting system September 16, 2024 9:25am Family history of attention deficit hyperactivity disorder (ADHD) September 16, 2024 9:25am Family history of history of Go de la Tourette's syndrome September 16, 2024 9:25am Marginal insertion of umbilical cord September 16, 2024 9:25am September 16, 2024 9:25am Supervision of high-risk September 162024 9:25am Unknown varicella vaccination status September 16, 2024 9:25am UTI (urinary tract infection) September 16 9:25am Bradycardia September 16, 2024 9:25am Duplicated left renal collecting system September 28, 2024 10:59am Family history of attention deficit hyperactivity disorder (ADHD) September 28, 2024 10:59am Family history of history of Go de la Tourette's syndrome September 28, 2024 10:59am Marginal insertion of umbilical cord September 28, 2024 10:59am September 28, 2024 10:59 am Supervision of high-risk September 152024 10:59am Unknown varicella vaccination status September 28, 2024 10:59am UTI (urinary tract infection) September 28, 2024 10:59am Duplicated left renal collecting system October 13, 2024 9:35am Family history of attention deficit hyperactivity disorder (ADHD) October 13, 2024 9:35am Family history of history of Go de la Tourette's syndrome October 13, 2024 9:35am Marginal insertion of umbilical cord October 13, 2024 9:35am October 13, 2024 9:35a m Supervision of high-risk September 162024 9:35am Unknown varicella vaccination status October 13, 2024 9:35am UTI (urinary tract infection) October 13, 2024 9:35am Duplicated left renal collecting system October 27, 2024 8:49am Family history of attention deficit hyperactivity disorder (ADHD) October 27, 2024 8:49am Family history of history of Go de la Tourette's syndrome October 27, 2024 8:49am Marginal insertion of umbilical cord Oct 8:49am October 27, 2024 8:49 am Supervision of high-risk October 27, 2024 8:49am Unknown varicella vaccination status Oct 8:49am UTI (urinary tract infection) October 27, 2024 8:49am Duplicated left renal collecting system November 01, 2024 10:05am Family history of attention deficit hyperactivity disorder (ADHD) November 01, 2024 10:05am Family history of history of Go de la Tourette's syndrome November 01, 2024 10:05am Marginal insertion of umbilical cord Oct 10:05am November 01, 2024 10:0 5am Supervision of high-risk November 01, 2024 10:05am Unknown varicella vaccination status Oct e 2024 10:05am UTI (urinary tract infection) November 01, 2024 10:05am Decreased movement aff ecting management of mother, antepartum November 01, 2024 10:05am Duplicated left renal collecting system November 07, 2024 1:51pm Family history of attention deficit hyperactivity disorder (ADHD) November 07, 2024 1:51pm Family history of history of Go de la Tourette's syndrome November 07, 2024 1:51pm growth restriction November 07, 2024 1:51pm Marginal insertion of umbilical cord Oct 1:51pm November 07, 2024 1:51 pm Supervision of high-risk November 07, 2024 1:51pm Unknown varicella vaccination status Oct 1:51pm UTI (urinary tract infection) November 07, 2024 1:51pm Decreased movement aff ecting management of mother, antepartum November 07, 2024 1:51pm Duplicated left renal collecting system November 14, 2024 8:48am Family history of attention deficit hyperactivity disorder (ADHD) November 14, 2024 8:48am Family history of history of Go de la Tourette's syndrome November 14, 2024 8:48am growth restriction November 14, 2024 8:48am Marginal insertion of umbilical cord Oct 8:48am November 14, 2024 8:48 am Supervision of high-risk November 14, 2024 8:48am Unknown varicella vaccination status Oct 8:48am UTI (urinary tract infection) November 14, 2024 8:48am Decreased movement aff ecting management of mother, antepartum November 14, 2024 8:48am Duplicated left renal collecting system November 21, 2024 10:09am Family history of attention deficit hyperactivity disorder (ADHD) November 21, 2024 10:09am Family history of history of Go de la Tourette's syndrome November 21, 2024 10:09am growth restriction November 21, 2024 10:09am Marginal insertion of umbilical cord Nov 10:09am November 21, 2024 10:09 am Supervision of high-risk November 21, 2024 10:09am Unknown varicella vaccination status Nov 10:09am UTI (urinary tract infection) November 21, 2024 10:09am Decreased movement aff ecting management of mother, antepartum November 21, 2024 10:09am Duplicated left renal collecting system November 28, 2024 8:18am Family history of attention deficit hyperactivity disorder (ADHD) November 28, 2024 8:18am Family history of history of Go de la Tourette's syndrome November 28, 2024 8:18am growth restriction November 28, 2024 8:18am Marginal insertion of umbilical cord Nov 8:18am November 28, 2024 8:18 am Supervision of high-risk November 28, 2024 8:18am Unknown varicella vaccination status Nov 8:18am UTI (urinary tract infection) November 28, 2024 8:18am Chief Complaint Admit Date 20 WK OB August 04, 2024 8:4 0am 24 WK OB August 31, 2024 10: 13am UTI ISSUES September 10, 2024 1:3 3pm F/U from urgent care for UTI sx September 16, 2024 9:25am 28 wk ob/glucose September 28, 2024 10:59 am 30wk ob October 13, 2024 9:35a m 32wk ob October 27, 2024 8:49 am DECREASED MOVEMENT November 01, 2024 10:05am DECREASED MOVEMENT November 01, 2024 7:06pm 34wk ob/nst November 07, 2024 1:51 pm 35wk nst only November 14, 2024 8:48 am 36wk ob/nst November 21, 2024 10:09 am 37wk ob/nst November 28, 2024 8:18 am 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 2024 8:40am August 04, 2024 8:4 0am Supervision of high-risk August 04, 2024 8:40am Unknown varicella vaccination status [facility] 2024 8:40am Bradycardia August 04, 2024 8:4 0am Duplicated left renal collecting system August 31, 2024 10:13am Family history of attention deficit hyperactivity disorder (ADHD) August 31, 2024 10:13am Family history of history of Go de la Tourette's syndrome August 31, 2024 10:13am Marginal insertion of umbilical cord Apr 2024 10:13am August 31, 2024 10: 13am Supervision of high-risk August 31, 2024 10:13am Unknown varicella vaccination status Apr 2024 10:13am Bradycardia August 31, 2024 10: 13am UTI (urinary tract infection) August 1:33pm Duplicated left renal collecting system September 16, 2024 9:25am Family history of attention deficit hyperactivity disorder (ADHD) September 16, 2024 9:25am Family history of history of Go de la Tourette's syndrome September 16, 2024 9:25am Marginal insertion of umbilical cord September 16, 2024 9:25am September 16, 2024 9:25am Supervision of high-risk September 162024 9:25am Unknown varicella vaccination status September 16, 2024 9:25am UTI (urinary tract infection) September 16 9:25am Bradycardia September 16, 2024 9:25am Duplicated left renal collecting system September 28, 2024 10:59am Family history of attention deficit hyperactivity disorder (ADHD) September 28, 2024 10:59am Family history of history of Go de la Tourette's syndrome September 28, 2024 10:59am Marginal insertion of umbilical cord September 28, 2024 10:59am September 28, 2024 10:59 am Supervision of high-risk September 152024 10:59am Unknown varicella vaccination status September 28, 2024 10:59am UTI (urinary tract infection) September 28, 2024 10:59am Duplicated left renal collecting system October 13, 2024 9:35am Family history of attention deficit hyperactivity disorder (ADHD) October 13, 2024 9:35am Family history of history of Go de la Tourette's syndrome October 13, 2024 9:35am Marginal insertion of umbilical cord October 13, 2024 9:35am October 13, 2024 9:35a m Supervision of high-risk September 162024 9:35am Unknown varicella vaccination status October 13, 2024 9:35am UTI (urinary tract infection) October 13, 2024 9:35am Duplicated left renal collecting system October 27, 2024 8:49am Family history of attention deficit hyperactivity disorder (ADHD) October 27, 2024 8:49am Family history of history of Go de la Tourette's syndrome October 27, 2024 8:49am Marginal insertion of umbilical cord Oct 8:49am October 27, 2024 8:49 am Supervision of high-risk October 27, 2024 8:49am Unknown varicella vaccination status Oct 8:49am UTI (urinary tract infection) October 27, 2024 8:49am Duplicated left renal collecting system November 01, 2024 10:05am Family history of attention deficit hyperactivity disorder (ADHD) November 01, 2024 10:05am Family history of history of Go de la Tourette's syndrome November 01, 2024 10:05am Marginal insertion of umbilical cord Oct 10:05am November 01, 2024 10:0 5am Supervision of high-risk November 01, 2024 10:05am Unknown varicella vaccination status Oct 10:05am UTI (urinary tract infection) November 01, 2024 10:05am Decreased movement aff ecting management of mother, antepartum November 01, 2024 10:05am Duplicated left renal collecting system November 07, 2024 1:51pm Family history of attention deficit hyperactivity disorder (ADHD) November 07, 2024 1:51pm Family history of history of Go de la Tourette's syndrome November 07, 2024 1:51pm growth restriction November 07, 2024 1:51pm Marginal insertion of umbilical cord Oct 1:51pm November 07, 2024 1:51 pm Supervision of high-risk November 07, 2024 1:51pm Unknown varicella vaccination status Oct e 2024 1:51pm UTI (urinary tract infection) November 07, 2024 1:51pm Decreased movement aff ecting management of mother, antepartum November 07, 2024 1:51pm Duplicated left renal collecting system November 14, 2024 8:48am Family history of attention deficit hyperactivity disorder (ADHD) November 14, 2024 8:48am Family history of history of Go de la Tourette's syndrome November 14, 2024 8:48am growth restriction November 14, 2024 8:48am Marginal insertion of umbilical cord Oct 8:48am November 14, 2024 8:48 am Supervision of high-risk November 14, 2024 8:48am Unknown varicella vaccination status Oct 8:48am UTI (urinary tract infection) November 14, 2024 8:48am Decreased movement aff ecting management of mother, antepartum November 14, 2024 8:48am Duplicated left renal collecting system November 21, 2024 10:09am Family history of attention deficit hyperactivity disorder (ADHD) November 21, 2024 10:09am Family history of history of Go de la Tourette's syndrome November 21, 2024 10:09am growth restriction November 21, 2024 10:09am Marginal insertion of umbilical cord Nov 10:09am November 21, 2024 10:09 am Supervision of high-risk November 21, 2024 10:09am Unknown varicella vaccination status Nov 10:09am UTI (urinary tract infection) November 21, 2024 10:09am Decreased movement aff ecting management of mother, antepartum November 21, 2024 10:09am Duplicated left renal collecting system November 28, 2024 8:18am Family history of attention deficit hyperactivity disorder (ADHD) November 28, 2024 8:18am Family history of history of Go de la Tourette's syndrome November 28, 2024 8:18am growth restriction November 28, 2024 8:18am Marginal insertion of umbilical cord Nov 8:18am November 28, 2024 8:18 am Supervision of high-risk November 28, 2024 8:18am Unknown varicella vaccination status Nov 8:18am UTI (urinary tract infection) November 28, 2024 8:18am Duplicated left renal collecting system November 30, 2024 9:11am Family history of attention deficit hyperactivity disorder (ADHD) November 30, 2024 9:11am Family history of history of Go de la Tourette's syndrome November 30, 2024 9:11am growth restriction November 30, 2024 9:11am Marginal insertion of umbilical cord Nov 9:11am November 30, 2024 9:11 am Supervision of high-risk November 30, 2024 9:11am Unknown varicella vaccination status Nov y 2024 9:11am UTI (urinary tract infection) November 30, 2024 9:11am Additional Source Comments INFORMATION SOURCE (unrecogn ized section and content) DATE CREATED AUTHOR 11/10/2017 [facility] DATE CREATED AUTHOR AUTHOR'S ORGANIZ ATION 07/06/2018 [facility] DATE CREATED AUTHOR AUTHOR'S ORGANIZ ATION 06/28/2021 [facility] DATE CREATED AUTHOR AUTHOR'S ORGANIZ ATION 08/05/2021 [facility] DATE CREATED AUTHOR AUTHOR'S ORGANIZ ATION 08/08/2021 [facility] DATE CREATED AUTHOR AUTHOR'S ORGANIZ ATION 11/28/2024 [facility] DATE CREATED AUTHOR AUTHOR'S ORGANIZ ATION 11/28/20[facility] Care Teams (unrecognized sec tion and content) Team Status: Inactive Member Role Status Dates Dr. Melia Elizabeth DO Attending Provider Activ e Start: June 07, 2024 End: June 07, 2024 Team Status: Inactive Member Role Status Dates Roselyn Cotto CNM Attending Provider Active S tart: July 07, 2024 End: July 07, 2024 Team Status: Inactive Member Role Status Dates Dr. Melia Elizabeth DO Attending Provider Activ e Start: August 04, 2024 End: August 04, 2024 Team Status: Inactive Member Role Status Dates Roselyn Cotto CNM Attending Provider Active S tart: August 31, 2024 End: August 31, 2024 Team Status: Inactive Member Role Status Dates Nichole Turcios PA PA Attending Provider Active S tart: September 10, 2024 End: September 10, 2024 Team Status: Inactive Member Role Status Dates Nichole SEN PA Attending Provider Active S tart: September 12, 2024 End: September 12, 2024 Team Status: Inactive Member Role Status Dates Dr. Padmini Duenas MD Attending Provider Active Start: September 16, 2024 End: September 16, 2024 Team Status: Inactive Member Role Status Dates Dr. Padmini Duenas MD Attending Provider Active Start: September 16, 2024 End: September 16, 2024 Dr. Padmini Duenas MD Referring Provider Active Start: September 16, 2024 End: September 16, 2024 Team Status: Inactive Member Role Status Dates Micheal Cortez FOREST RANGER, FOREST RANGER-C Attending Provider Active Start: September 28, 2024 End: September 28, 2024 Team Status: Active Member Role Status Dates Roselyn Cotto CNM Attending Provider Active S tart: September 28, 2024 Roselyn Cotto CNM Referring Provider Active S tart: September 28, 2024 Team Status: Inactive Member Role Status Dates Roselyn Cotto CNM Attending Provider Active S tart: September 28, 2024 End: September 28, 2024 Roselyn Cotto CNM Referring Provider Active S tart: September 28, 2024 End: September 28, 2024 Team Status: Inactive Member Role Status Dates Dr. Padmini Duenas MD Attending Provider Active Start: October 13, 2024 End: October 13, 2024 Team Status: Inactive Member Role Status Dates Roselyn Cotto CNM Attending Provider Active S tart: October 27, 2024 End: October 27, 2024 Team Status: Active Member Role Status Dates No Primary Care Physician Primary Care Provider Active Team Status: Inactive Member Role Status Dates No Primary Care Physician Primary Care Provider Active Start: November 01, 2024 End: November 01, 2024 Dr. Melia Elizabeth DO Attending Provider Activ e Start: November 01, 2024 End: November 01, 2024 Dr. Melia Elizabeth DO Referring Provider Activ e Start: November 01, 2024 End: November 01, 2024 Team Status: Active Member Role Status Dates No Primary Care Physician Primary Care Provider Active Start: November 01, 2024 Dr. Melia Elizabeth DO Attending Provider Activ e Start: November 01, 2024 Dr. Melia Elizabeth DO Referring Provider Activ e Start: November 01, 2024 Dr. Melia Elizabeth DO Other Provider Active Start: November 01, 2024 Team Status: Inactive Member Role Status Dates Micheal Cortez NP, FOREST RANGER-C Attending Provider Active Start: November 07, 2024 End: November 07, 2024 No Primary Care Physician Primary Care Provider Active Start: November 07, 2024 End: November 07, 2024 No Primary Care Physician Referring Provider Active Start: November 07, 2024 End: November 07, 2024 Team Status: Active Member Role/Relationship Status Dates No Primary Care Physician Primary Care Provider Active Team Status: Inactive Member Role/Relationship Status Dates Dr. Melia Elizabeth DO Attending Provider Activ e Start: August 04, 2024 End: August 04, 2024 Team Status: Inactive Member Role/Relationship Status Dates Roselyn Cotto CNM Attending Provider Active S tart: August 31, 2024 End: August 31, 2024 Team Status: Inactive Member Role/Relationship Status Dates Nichole SEN PA Attending Provider Active S tart: September 10, 2024 End: September 10, 2024 Team Status: Inactive Member Role/Relationship Status Dates Nichole Turcios PA, PA Attending Provider Active S tart: September 12, 2024 End: September 12, 2024 Team Status: Inactive Member Role/Relationship Status Dates Dr. Padmini Duenas MD Attending Provider Active Start: September 16, 2024 End: September 16, 2024 Team Status: Inactive Member Role/Relationship Status Dates Dr. Padmini Duenas MD Attending Provider Active Start: September 16, 2024 End: September 16, 2024 Dr. Padmini Duenas MD Referring Provider Active Start: September 16, 2024 End: September 16, 2024 Team Status: Inactive Member Role/Relationship Status Dates Micheal Cortez NP, FOREST RANGER-C Attending Provider Active Start: September 28, 2024 End: September 28, 2024 Team Status: Inactive Member Role/Relationship Status Dates Roselyn Cotto CNM Attending Provider Active S tart: September 28, 2024 End: September 28, 2024 Roselyn Cotto CNM Referring Provider Active S tart: September 28, 2024 End: September 28, 2024 Team Status: Inactive Member Role/Relationship Status Dates Dr. Padmini Duenas MD Attending Provider Active Start: October 13, 2024 End: October 13, 2024 Team Status: Inactive Member Role/Relationship Status Dates Roselyn Cotto CNM Attending Provider Active S tart: October 27, 2024 End: October 27, 2024 Team Status: Inactive Member Role/Relationship Status Dates No Primary Care Physician Primary Care Provider Active Start: November 01, 2024 End: November 01, 2024 Dr. Melia Elizabeth DO Attending Provider Activ e Start: November 01, 2024 End: November 01, 2024 Dr. Melia Elizabeth DO Referring Provider Activ e Start: November 01, 2024 End: November 01, 2024 Team Status: Active Member Role/Relationship Status Dates No Primary Care Physician Primary Care Provider Active Start: November 01, 2024 Dr. Melia Elizabeth DO Attending Provider Activ e Start: November 01, 2024 Dr. Melia Elizabeth DO Referring Provider Activ e Start: November 01, 2024 Dr. Melia Elizabeth DO Other Provider Active Start: November 01, 2024 Team Status: Inactive Member Role/Relationship Status Dates Micheal Cortez NP, FOREST RANGER-C Attending Provider Active Start: November 07, 2024 End: November 07, 2024 No Primary Care Physician Primary Care Provider Active Start: November 07, 2024 End: November 07, 2024 No Primary Care Physician Referring Provider Active Start: November 07, 2024 End: November 07, 2024 Team Status: Inactive Member Role/Relationship Status Dates No Primary Care Physician Primary Care Provider Active Start: November 14, 2024 End: November 14, 2024 No Primary Care Physician Referring Provider Active Start: November 14, 2024 End: November 14, 2024 Dr. Melia Elizabeth DO Attending Provider Activ e Start: November 14, 2024 End: November 14, 2024 Team Status: Inactive Member Role/Relationship Status Dates No Primary Care Physician Primary Care Provider Active Start: November 21, 2024 End: November 21, 2024 No Primary Care Physician Referring Provider Active Start: November 21, 2024 End: November 21, 2024 Roselyn Cotto CNM Attending Provider Active S tart: November 21, 2024 End: November 21, 2024 Team Status: Inactive Member Role/Relationship Status Dates No Primary Care Physician Primary Care Provider Active Start: November 21, 2024 End: November 21, 2024 Roselyn Cotto CNM Attending Provider Active S tart: November 21, 2024 End: November 21, 2024 Roselyn Cotto CNM Referring Provider Active S tart: November 21, 2024 End: November 21, 2024 Team Status: Inactive Member Role/Relationship Status Dates No Primary Care Physician Primary Care Provider Active Start: November 28, 2024 End: November 28, 2024 No Primary Care Physician Referring Provider Active Start: November 28, 2024 End: November 28, 2024 Dr. Padmini Duenas MD Attending Provider Active Start: November 28, 2024 End: November 28, 2024 Team Status: Inactive Member Role/Relationship Status Dates No Primary Care Physician Primary Care Provider Active Start: November 30, 2024 End: November 30, 2024 No Primary Care Physician Referring Provider Active Start: November 30, 2024 End: November 30, 2024 Dr. Padmini Duenas MD Attending Provider Active Start: November 30, 2024 End: November 30, 2024 Goals (unrecognized section and content) Goals may be documented in a n alternate sectionGoals may be documented in an alternate sectionGoals may be documented in an alternate sectionGoals may be documented in an alternate sectionGoals may be documented in an alternate sectionGoals may be documented in an alternate sectionGoals may be documented in an alternate sectionGoals may be documented in an alternate sectionGoals may be documented in an alternate sectionGoals may be documented in an alternate sectionGoals may be documented in an alternate sectionGoals may be documented in an alternate section FOR RECORDS PERTAINING TO PATIENTS WHO ARE OR HAVE BEEN ENROLLED IN A CHEMICAL DEPENDENCY/SUBSTANCEABUSE PROGRAM, SOME INFORMATION MAY BE OMITTED. This clinical summary was aggregated from multiple sources. Caution should be exercised in using it in the provision of clinical care. This summary normalizes information from multiple sources, and as a consequence, information in this document may materially change the coding, format and clinical context of patient data. In addition, data may be omitted in some cases. CLINICAL DECISIONS SHOULD BE BASED ON THE PRIMARY CLINICAL RECORDS. [facility]. provides no warranty or guarantee of the accuracy or completeness of information in this document.
[2024-12-02] MEDS: Lactated Ringers 1,000 ML 50 ML IV (08:22)
[2024-12-02] MEDS: Oxytocin 15 Units/NS 250ml 15 UNITS/250 ML IV.SOLN 2 UNITS IV (08:24)
[2024-12-02 08:56] LABS: Hematocrit 33.6 % (37-47); Hemoglobin 11.8 g/dL (12.0-15.0); Immature Granulocytes Count 0.050 X10^3/uL (0.0-0.0); Mean Corp Hgb Conc 35.1 g/dL (32-36); Mean Corpuscular Volume 85.9 fL (81-99); Mean Platelet Vol. 10.1 fl (6.2-12.0); NRBC Flagged by Analyzer 0 % (0-5); Platelet Count 202 K/mm3 (150-450); RBC Distribution Width CV 12.3 % (11.6-14.6); RBC Distribution Width SD 38.3 fl (35.1-43.9); Red Blood Count 3.91 M/mm3 (4.2-5.4); White Blood Count 6.5 K/mm3 (4.4-11.0)
[2024-12-02 09:36] LABS: AST(SGOT) 21 U/L (<=31); Alanine Aminotransfer ALT/SGPT 11 U/L (<=34); Albumin, Serum 3.7 g/dL (3.5-5.0); Alkaline Phosphatase 145 U/L (35-104); Anion Gap 13 (5-15); BUN 10 mg/dL (4-19); BUN/Creat Ratio 13.8 RATIO (10-20); Calcium,Total 9.1 mg/dL (7.6-11.0); Carbon Dioxide 19.3 mmol/L (21.0-32.0); Chloride 105 mmol/L (98-108); Estimated Creatinine Clearance 101.94 ml/min (50-250); Globulin 2.7 g/dL (2.2-4.2); Glucose 84 mg/dL (70-99); Potassium 3.5 mmol/L (3.3-5.1)
[2024-12-02] MEDS: Lactated Ringers 1,000 ML 999 ML IV (15:04)
[2024-12-02] MEDS: Lactated Ringers 1,000 ML 200 ML IV (16:13)
[2024-12-02] MEDS: fentaNYL-bupivacaine (epidural) 100 ML BAG EPIDURAL (16:17)
--- NOTE | 2024-12-02 17:14 | HP.PCM.OB_ITS ---
HPI - General General Date of Admission: 12/02/24 HPI Narrative GURPREET SERNA, is a 24 F who presentsfor IOL secondary to IUGR no vb lof goo dfm nor egular ctx Maternal Data Information SHAREE Calculator Estimated Delivery Date Method Current WG Current Estimate 12/16/24 LMP (Certain) 38w 0d PFSH PFSH Home Medications ?Medication ?Instructions ?Recorded ?Last Taken ?Type multivit-min no.71-iron fum 28 cap PO 04/29/24 5 History mg-folate no.1 1 mg-dha 300 mg capsule (PNV-[place]) Allergy/AdvReac Type Severity Reaction Status Date / Time Penicillins Allergy Mild Rash Verified 11/30/24 09:27 Family History Uncle Cancer, Onset Age: 30 Maternal-Liver Grandmother Heart disease, Onset Age: 60 Paternal Grandfather Diabetes, Onset Age: 50 Maternal Surgical History (Updated 12/02/24 @ 09:04 by Jesi Lockett) [place] teeth extracted Social History adopted: No household members: spouse current occupational status: employed 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 [employer] current occupational exposures/hazards: No pets and animals: Yes pets and animals: dog(s) history of recent travel: No sexually active: Yes Smoking Status: Never smoker alcohol intake: current alcohol intake frequency: a few times a month details: Not while substance use type: does not use well-balanced diet: about half the time caffeine: Yes Type: coffee Number of servings: 1 eating out: rarely or never during the past year weight has: remained stable what type of physical activity do you participate in: running frequency: daily duration: 30-45 minutes/day sandip/yarsanism: Sikh seatbelt use: always do you feel safe at home: Yes additional social history: [place]- Johanne.[employer].Amanda. at [facility] History 1 Elective abortions Hx Para 0 Spontaneous abortions Hx # Term Pregnancies Ectopic pregnancies Hx # Pregnancies Multiple births # of living children Visit Details Expected Delivery Route/Plan Labor Preferences- CB/BF classes: encourage labor support person: [place] labor intervention preferences: [] pain management options preferred: epidural cut cord/dad catch: no : yes PP control planned: discussed discussed possible routes of delivery and associated risks: [] special requests: [] Plans Covid status: [] Flu vaccine: [] Tdap vaccine: [] Rhogam: NA LARC form signed: yes Problem list reviewed and updated with the most current plan of care details and appropriate orders placed. Relevant counseling for the gestational age provided. Continue routine care and follow up unless otherwise noted in visit notes/problem list details OB Flowsheet Initial Weight: 116 lb Date -?-?-?-?-?-?-?-?-?-?-?-?- EGA Weight BP Urine Prot -?-?-?-?-?-?-?-?-?-?-?-?- Glucose FHR FuHt Pres Dilation -?-?-?-?-?-?-?-?-?-?-?-?- Effaced St Visit Note 05/06/24 -?-?-?-?-?-?-?-?-?-?-?-?- 8w 0d 116 lb 6 oz (+6 oz) 132/88 -?-?-?-?-?-?-?-?-?-?-?-?- 171 -?-?-?-?-?-?-?-?-?-?-?-?- LC- 1.67. LC- CRL 1.67 con [facility] LC- CRL 1.67 con with LMP. d [facility] today. recommended 1mg folic acid for family hx of cleft lip 06/07/24 -?-?-?-?-?-?-?-?-?-?-?-?- 12w 4d 119 lb 6 oz (+3 lb 6 oz) 122/78 Negative -?-?-?-?-?-?-?-?-?-?-?-?- Negative 175 -?-?-?-?-?-?-?-?-?-?-?-?- JV- no cramping or bleeding c/o constipation. we discussed remedies. anatomy scan ordered with [facility]. 07/07/24 -?-?-?-?-?-?-?-?-?-?-?-?- 16w 6d 126 lb 2 oz (+10 lb 2 oz) 108/72 Negative -?-?-?-?-?-?-?-?-?-?-?-?- Negative 145 -?-?-?-?-?-?-?--?-?-?-?-?- KW- no vb/crampi ng. anatomy US on 07/19. AFP declined. 08/04/24 -?-?-?-?-?-?-?-?-?-?-?-?- 20w 6d 128 lb 2 oz (+12 lb 2 oz) 113/70 Negative -?-?-?-?-?-?-?-?-?-?-?-?- Negative 135 -?-?-?-?-?-?-?-?-?-?-?-?- JV- no complaint s today. 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 08/31/24 -?-?-?-?-?-?-?-?-?-?-?-?- 24w 5d 130 lb 4 oz (+14 lb 4 oz) 109/70 Negative -?-?-?-?-?-?-?-?-?-?-?-?- Negative 135 24 -?-?-?-?-?-?-?-?-?-?-?-?- KW- no vb/lof/ct x. good fm. glucose next visit. has US scheduled. 09/16/24 -?-?-?-?-?-?-?-?-?-?-?-?- 27w 0d 127 lb 8 oz (+11 lb 8 oz) 107/72 Trace -?-?-?-?-?-?-?-?-?-?-?-?- Negative 140 27 -?-?-?-?-?-?-?-?-?-?-?-?- SM- no vb lof go od fm no regualr ctx SM- no vb lof good fm no reg ualr ctx having dysuria urgency frequency little improvement with macrobid and culture negative, repeat testing today 09/28/24 -?-?-?-?-?-?-?-?-?-?-?-?- 28w 5d 128 lb 8 oz (+12 lb 8 oz) 106/70 Negative -?-?-?-?-?-?-?-?-?-?-?-?- Negative 143 28 -?-?--?-?-?-?-?-?-?-?-?-?- MH-No VB. LOF. G ood FM. Reviewed MFM US for duplicate renal system on left. Rpt US 4 wk. 28 wk labs pending. Larc. Undecided on tdap 10/13/24 -?-?-?-?-?-?--?-?-?-?-?-?- 30w 6d 126 lb 2 oz (+10 lb 2 oz) 111/72 Negative -?-?-?-?-?-?-?-?-?-?-?-?- Negative 135 30 -?-?-?-?-?-?-?-?-?-?-?-?- SM- no vb lof go od fm n o regular ctx discussed tdap 10/27/24 -?-?-?-?-?-?-?-?-?-?-?-?- 32w 6d 127 lb 4 oz (+11 lb 4 oz) 115/71 Trace -?-?-?-?-?-?-?-?-?-?-?-?- Negative 135 31 -?-?-?-?-?-?-?-?-?-?-?-?- KW- no vb/lof/ct x. good fm. Has CBE classes scheduled. growth US next week. 11/07/24 -?-?-?-?-?-?-?-?-?-?-?-?- 34w 3d 127 lb 2 oz (+11 lb 2 oz) 110/68 Negative -?-?-?-?-?-?-?-?-?-?-?-?- Negative 140 -?-?-?-?-?-?-?-?-?-?-?-?- MH-reactive NST. No VB, LOF. Good Fm. Denies concerns. Appt scheduled:BPP wkly w MFM, growth US Q4w, wkly NST w [facility] 11/14/24 -?-?-?-?-?-?-?-?-?-?--?-?- 35w 3d 5 lb 2 oz (-110 lb 14 oz) 113/72 Trace -?-?-?-?-?-?-?-?-?-?-?-?- Negative 140 -?-?-?-?-?-?-?-?-?-?-?-?- JV- reactive NST . no complaints. has bpp 11/21/24 -?-?-?-?-?-?-?-?-?-?-?-?- 36w 3d 127 lb 6 oz (+11 lb 6 oz) 108/66 Negative -?-?-?-?-?-?-?-?-?-?-?-?- Negative 125 32 Cephalic 1 -?-?-?-?-?-?-?-?-?-?-?-?- 70 -2 KW- no vb/ lof/ctx. good fm. NST reactive. BPP thurs. Requesting IOL on evening of 12/04. next growth US is 12/01. GBS today. 11/28/24 -?-?-?-?-?-?-?-?-?-?-?-?- 37w 3d 126 lb 6 oz (+10 lb 6 oz) 126/74 Negative -?-?-?-?-?-?-?-?-?-?-?-?- Negative 130 Cephalic 1.5 -?-?-?-?-?-?-?-?-?-?-?-?- 70 -1 SM- no vb lof good fm no reuglar ctx discussed IOL 38-39 weeks patient to call with requested date and time 11/30/24 -?-?-?-?-?-?-?-?-?-?-?-?- 37w 5d 126 lb 6 oz (+10 lb 6 oz) 111/73 Negative -?-?-?-?-?-?-?-?-?-?-?-?- Negative 140 2 -?-?-?-?-?-?-?-?-?-?-?-?- 70 -1 SM- membra taylor swept no vb lof good fm n oreuglar ctx NST FHR Rate Baby A Baseline: 130 Variability:: Moderate Accelerations:: 15 x 15 Decelerations:: None NST Reactive:: Yes FHR Category:: Category I Uterine Activity:: irregular ROS Constitutional Constitutional: Reports systems reviewed and no addt'l complaints, except as documented Eyes Eyes: Denies change in vision ENT HEENT: Reports systems reviewed and no addt'l complaints, except as documented; Denies headache(s) Cardiovascular Cardiovascular: Reports systems reviewed and no addt'l complaints, except as documented; Denies chest pain or dyspnea Respiratory/Chest Respiratory/Chest: Reports systems reviewed and no addt'l complaints, except as documented Gastrointestinal Gastrointestinal: Reports systems reviewed and no addt'l complaints, except as documented; Denies abdominal pain Genitourinary Genitourinary: Reports systems reviewed and no addt'l complaints, except as documented, contractions Details: present (irregular) and movement Details: present; Denies dysuria or genital lesions Musculoskeletal Musculoskeletal: Reports systems reviewed and no addt'l complaints, except as documented Neurologic Neurologic: Reports systems reviewed and no addt'l complaints, except as documented Endocrine Endocrinology: Reports systems reviewed and no addt'l complaints, except as documented Vital Signs Vital Signs Vital Signs: 12/02/24 07:23 12/02/24 07:23 12/02/24 07:25 Temperature 98.1 F Temperature Source Pulse Rate 69 Respiratory Rate Blood Pressure 111/75 BP Systolic 111 BP Diastolic 75 Pulse Ox 12/02/24 07:25 12/02/24 07:25 12/02/24 09:38 Temperature Temperature Source Pulse Rate 62 Respiratory Rate Blood Pressure 96/54 L BP Systolic 96 BP Diastolic 54 Pulse Ox 99 12/02/24 09:38 12/02/24 09:38 12/02/24 09:38 Temperature 98.4 F Temperature Source Pulse Rate 52 L Respiratory Rate Blood Pressure BP Systolic BP Diastolic Pulse Ox 97 12/02/24 10:29 12/02/24 10:29 12/02/24 10:30 Temperature Temperature Source Pulse Rate 47 L Respiratory Rate 16 Blood Pressure 93/53 L BP Systolic 93 BP Diastolic 53 Pulse Ox 12/02/24 11:53 12/02/24 11:53 12/02/24 11:53 Temperature Temperature Source Pulse Rate 56 L Respiratory Rate Blood Pressure 105/53 L BP Systolic 105 BP Diastolic 53 Pulse Ox 98 12/02/24 11:53 12/02/24 11:54 12/02/24 11:54 Temperature 99.1 F Temperature Source Temporal Pulse Rate Respiratory Rate 16 Blood Pressure BP Systolic BP Diastolic Pulse Ox 12/02/24 11:54 12/02/24 13:00 12/02/24 13:00 Temperature 99.2 F H Temperature Source Temporal Pulse Rate Respiratory Rate 16 Blood Pressure BP Systolic BP Diastolic Pulse Ox 12/02/24 13:00 12/02/24 13:20 12/02/24 13:20 Temperature 98.9 F Temperature Source Pulse Rate 43 L Respiratory Rate Blood Pressure 111/58 L BP Systolic 111 BP Diastolic 58 Pulse Ox 12/02/24 13:20 12/02/24 14:35 12/02/24 14:35 Temperature 99.0 F Temperature Source Temporal Pulse Rate Respiratory Rate 16 Blood Pressure BP Systolic BP Diastolic Pulse Ox 12/02/24 14:35 12/02/24 15:30 12/02/24 15:30 Temperature 98.5 F Temperature Source Pulse Rate 68 Respiratory Rate Blood Pressure BP Systolic BP Diastolic Pulse Ox 91 12/02/24 15:35 12/02/24 15:35 12/02/24 15:38 Temperature Temperature Source Pulse Rate 55 L Respiratory Rate Blood Pressure 133/78 H BP Systolic 133 BP Diastolic 78 Pulse Ox 100 12/02/24 15:38 12/02/24 15:39 12/02/24 15:39 Temperature Temperature Source Pulse Rate 59 L 77 Respiratory Rate Blood Pressure BP Systolic BP Diastolic Pulse Ox 90 12/02/24 15:40 12/02/24 15:40 12/02/24 15:43 Temperature Temperature Source Pulse Rate 75 Respiratory Rate Blood Pressure 118/68 BP Systolic 118 BP Diastolic 68 Pulse Ox 83 12/02/24 15:43 12/02/24 15:45 12/02/24 15:45 Temperature Temperature Source Pulse Rate 58 L 69 Respiratory Rate Blood Pressure BP Systolic BP Diastolic Pulse Ox 100 12/02/24 15:46 12/02/24 15:46 12/02/24 15:48 Temperature Temperature Source Pulse Rate 69 Respiratory Rate Blood Pressure 127/77 H BP Systolic 127 BP Diastolic 77 Pulse Ox 89 12/02/24 15:48 12/02/24 15:50 12/02/24 15:50 Temperature Temperature Source Pulse Rate 55 L 74 Respiratory Rate Blood Pressure BP Systolic BP Diastolic Pulse Ox 81 12/02/24 15:55 12/02/24 15:55 12/02/24 15:56 Temperature Temperature Source Pulse Rate 55 L 59 L Respiratory Rate Blood Pressure 112/54 L BP Systolic 112 BP Diastolic 54 Pulse Ox 12/02/24 15:56 12/02/24 15:59 12/02/24 15:59 Temperature Temperature Source Pulse Rate 68 Respiratory Rate Blood Pressure 112/58 L BP Systolic 112 BP Diastolic 58 Pulse Ox 100 12/02/24 16:01 12/02/24 16:01 12/02/24 16:06 Temperature Temperature Source Pulse Rate 62 62 Respiratory Rate Blood Pressure BP Systolic BP Diastolic Pulse Ox 100 12/02/24 16:06 12/02/24 16:14 12/02/24 16:14 Temperature Temperature Source Pulse Rate 68 Respiratory Rate Blood Pressure 117/80 BP Systolic 117 BP Diastolic 80 Pulse Ox 100 12/02/24 16:30 12/02/24 16:30 12/02/24 16:43 Temperature Temperature Source Pulse Rate 56 L Respiratory Rate Blood Pressure 124/77 H 112/76 BP Systolic 124 112 BP Diastolic 77 76 Pulse Ox 12/02/24 16:43 12/02/24 16:55 12/02/24 16:55 Temperature Temperature Source Pulse Rate 66 52 L Respiratory Rate Blood Pressure BP Systolic BP Diastolic Pulse Ox 100 12/02/24 16:58 12/02/24 16:58 12/02/24 17:00 Temperature Temperature Source Pulse Rate 52 L 49 L Respiratory Rate Blood Pressure 108/65 BP Systolic 108 BP Diastolic 65 Pulse Ox 12/02/24 17:00 12/02/24 17:05 12/02/24 17:05 Temperature Temperature Source Pulse Rate 54 L Respiratory Rate Blood Pressure BP Systolic BP Diastolic Pulse Ox 100 100 12/02/24 17:10 12/02/24 17:10 Temperature Temperature Source Pulse Rate 46 L Respiratory Rate Blood Pressure BP Systolic BP Diastolic Pulse Ox 100 Weight Weight: 127 lb 8 oz Body Mass Index (BMI) 22.6 Physical Exam Const alert, oriented x3, no apparent distress and healthy appearing HEENT normocephalic and moist oral mucous membranes Head and Scalp: atraumatic Neck full ROM, no lymphadenopathy, supple and thyroid normal General: trachea midline Lymph Lymphatic: no lymphadenopathy noted Chest inspection of chest normal Resp normal respiratory effort Cardio regular rate GI soft to palpation and non-tender GI Narrative: gravid Inspection: gravid external exam normal Manual OB Exam: estimated gestational size appropriate, presentation cephalic, dilated, effaced and station Extremity normal to inspection General Extremity: Negative for edema Skin no rashes or lesions noted Neuro no focal motor deficits and deep tendon reflexes 2+ bilaterally Motor Exam: strength 5/5 throughout and clonus absent Psych mental status grossly normal Labs Labs Labs: Blood Type O POSITIVE Antibody Screen NEGATIVE Hct 33.6 % (37-47) L Hgb 11.8 g/dL (12.0-15.0) L Pap Smear Negative Syphilis Total Ab Nonreactive (Nonreactive) VZV IgG Antibody Rubella IgG Antibody Reactive (Nonreactive) Hep Bs Antigen Non-Reactive (Nonreactive) Hepatitis C Antibody Non-Reactive (Nonreactive) Chlamydia DNA (BREANA) Negative (Negative) N.gonorrhoeae DNA (BREANA) Negative (Negative) HIV 1&2 Antibody Nonreactive (Nonreactive) Glucose 1 Hr 50 gm 86 mg/dL (70-140) Assessment & Plan (1) growth restriction: COMMENT: wkly BPP/MFM and NST. Growth US [id number] growth/BPP (2) UTI (urinary tract infection): QUALIFIERS: Urinary tract infection type: acute cystitis Hematuria presence: with hematuria Qualified Code(s): N30.01 - Acute cystitis with hematuria COMMENT: Rpt culture neg (3) Marginal insertion of umbilical cord: (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 Ped urology consult 1mo pp. May need antibiotics if obstructive uropathy occurs. Normal echo (5) Unknown varicella vaccination status: COMMENT: Pt has not had varicella, varicella titer- NON immune (6) Family history of attention deficit hyperactivity disorder (ADHD): COMMENT: Brother (7) Family history of history of [place] de [place] Tourette's syndrome: COMMENT: Both brothers have tourette's (8) Supervision of high-risk : QUALIFIERS: Trimester: third trimester Qualified Code(s): O09.93 - Supervision of high risk , unspecified, third trimester COMMENT: PRR , SHAREE 12/14/24, girl [place] (9) : QUALIFIERS: Weeks of gestation: 37 weeks Qualified Code(s): Z3A.37 - 37 weeks gestation of COMMENT: GBS neg, elects NIPT with gender, undecided about Carrier testing PLAN: Plan Patient presents IOL, plan management for with pitocin. Pain management: plans epidural. GBS negative. Management of any complications: iugr I have reviewed the [facility] and made any clinically relevant updates.
--- NOTE | 2024-12-02 17:14 | PN.OBGYN_ITS ---
Subjective Subjective cat I tracing arom clear fluid now has epidurla doing well Objective Data Objective Data Vital Signs: Vital Signs Temp Pulse Resp BP Pulse Ox 98.5 F 46 L 16 108/65 100 12/02/24 14:35 12/02/24 17:10 12/02/24 14:35 12/02/24 16:58 12/02/24 17:10 Weight: 127 lb 8 oz Body Mass Index (BMI) 22.6 Intake & Output: Intake and Output for Last 24 Hours 11/30/24 12/01/24 12/02/24 23:59 23:59 23:59 Intake Total 1015.84 / 1015.84 Output Total 200 / 200 Balance 815.84 / 815.84 Lab / Micro Data 12/02/24 08:10 12/02/24 08:10 Labs: Laboratory Results - last 24 hr 12/02/24 08:10: WBC 6.5, RBC 3.91 L, Hgb 11.8 L, Hct 33.6 L, MCV 85.9, MCH 30.2, MCHC 35.1, RDW Std Deviation 38.3, RDW Coeff of Haley 12.3, Plt Count 202, MPV 10.1, Immature Gran % (Auto) 0.800, Neut % (Auto) 68.3, Lymph % (Auto) 22.3, [place] % (Auto) 7.5, Eos % (Auto) 0.5, Baso % (Auto) 0.6, Absolute Neuts (auto) 4.5, Absolute Lymphs (auto) 1.46, Nucleated RBC % 0, Sodium 138, Potassium 3.5, Chloride 105, Carbon Dioxide 19.3 L, Anion Gap 13, BUN 10, Creatinine 0.71, Estim Creat Clear Calc 101.94, Est GFR (MDRD) Non-Af 123, BUN/Creatinine Ratio 13.8, Glucose 84, Calcium 9.1, Total Bilirubin 0.27, AST 21, ALT 11, Alkaline Phosphatase 145 H, Total Protein 6.4, Albumin 3.7, Globulin 2.7, Albumin/Globulin Ratio 1.4 12/02/24 08:20: Blood Type O POSITIVE, Antibody Screen NEGATIVE
[2024-12-02] MEDS: LACTATED RINGERS 500 ML 999 ML IV (18:50)
--- NOTE | 2024-12-02 19:54 | OB.VAGDELI_ITS ---
Assessment & Plan (1) Encounter for induction of labor: (2) growth restriction: COMMENT: wkly BPP/MFM and NST. Growth US O5s-lak growth/BPP (3) Supervision of high-risk : QUALIFIERS: Trimester: third trimester Qualified Code(s): O09.93 - Supervision of high risk , unspecified, third trimester COMMENT: PRR , SHAREE 12/14/24, girl Jailene Bora (4) : QUALIFIERS: Weeks of gestation: 37 weeks Qualified Code(s): Z3A.37 - 37 weeks gestation of COMMENT: GBS neg, declined ntd mando and Carrier testing (5) Vaginal delivery: COMMENT: SM IOL IUGR girl Jailene 38 Maternal Data Information SHAREE Calculator Estimated Delivery Date Method Current WG Current Estimate 12/16/24 LMP (Certain) 38w 0d Vaginal Delivery Maternal Presentation Maternal Presentation: see assessment and plan Vaginal Delivery Information Procedure Performed: Spontaneous Vaginal Delivery Surgeon/Practitioner: Padmini Duenas Pre-Procedure Diagnosis: see assessment and plan Post-Procedure Diagnosis: same Type of anesthesia: Epidural Findings Description of procedure: Patient began pushing and delivered the head in the ARLEEN presentation. The head was delivered atraumatically . The anterior and posterior shoulders delivered without complication followed by the rest of the infant and the infant was placed on the maternal abdomen. Delayed cord clamping was employed for approximately 60 seconds. Cord was clamped and cut and gentle traction was applied to the cord and the placenta delivered spontaneously immediately following it was noted to be intact with three-vessel cord. The perineum and vagina were inspected and was noted to have a first -degree laceration that was repaired in the usual fashion with 3-0 vicryl rapide . EBL was 100 cc. Patient and tolerated delivery well. Presentation: Vertex Placental Delivery Description: Spontaneous Specimen collected: Yes Description of specimen(s) removed: placenta [employer]: No Post Vaginal Deli Medications given after delivery: Other (pitocin) Complication Complications: No Multi Select Codes Urinary/Genital Urinary/Genital CPT Codes: 53752 Vaginal Delivery [facility]
--- NOTE | 2024-12-02 19:55 | PCM.DC ---
Discharge Instructions DC O2, CPAP, BIPAP needs Home O2 Discharge instructions: No Dressing / Incision Discharge Activity: Return to Normal Activity, May Not Drive (while taking narcotic pain medications.) and May Shower May resume sexual activity in: 4-6 weeks Dressing / Incision Call your doctor if your incision/area has: Continuous Slow Oozing, Sudden Increased Bleeding, Increased Pain/ Swelling, Increased Redness and Foul Smelling Discharge Follow Up Care Please Follow Up With: Padmini Duenas MD When: Call [phone] to make an appointment with your doctor in 6 weeks. If you had elevated blood pressure or 4th degree laceration, you will need to be seen in 2 weeks. Test Results: Test results from this visit will be discussed in further detail at your follow-up appointment, if applicable. Discharge Plan Admission Admit Date/Time: 12/02/24 07:40 Attending Provider: Padmini Duenas Primary Care Provider: Yari Physician,Carline Primary Discharge Orders/Prescriptions Prescriptions: No Action PNV-[place] 28-1-300 mg capsule PO Referrals / Follow Up: Care Physician,Carline Primary [Primary Care Provider] -
[2024-12-02] MEDS: Oxytocin 15 Units/NS 250ml 15 UNITS/250 ML IV.SOLN 83 UNITS IV (20:01)
[2024-12-03 03:12] VITALS: BP 106/59; PULSE 55; RESP 16; TEMP 36.8; O2SAT 98
[2024-12-03 07:55] VITALS: BP 111/71; PULSE 50; RESP 16; TEMP 36.5
[2024-12-03] MEDS: Benzocaine/Lanolin/Aloe Vera 85 GM Spray 1 SPRAY TOPICAL (10:00)
[2024-12-03] MEDS: SELF ADMINISTRATION OF MEDS 1 EACH NOTE (10:00)
--- NOTE | 2024-12-03 10:08 | PN.OBGYN_ITS ---
Subjective Subjective Patient doing well without complaints. Tolerating PO. Ambulating and voiding without difficulty. Feeding well. Denies chest pain, shortness of breath, calf pain/swelling, fevers, chills, lightheadedness. Objective Data Objective Data Vital Signs: Vital Signs Temp Pulse Resp BP Pulse Ox O2 Del Method 97.7 F L 50 L 16 111/71 98 Room Air 12/03/24 07:55 12/03/24 07:55 12/03/24 07:55 12/03/24 07:55 12/03/24 03:12 12/03/24 03:12 Oxygen Delivery Method Room Air Weight: 127 lb 8 oz Body Mass Index (BMI) 22.6 Intake & Output: Intake and Output for Last 24 Hours 12/01/24 12/02/24 12/03/24 23:59 23:59 23:59 Intake Total 3221.66 / 3221.66 Output Total 300 / 300 600 / 600 Balance 2921.66 / 2921.66 -600 / -600 Lab / Micro Data 12/02/24 08:10 12/02/24 08:10 ROS Constitutional Constitutional: Reports systems reviewed and no addt'l complaints, except as documented Eyes Eyes: Reports systems reviewed and no addt'l complaints, except as documented ENT HEENT: Reports systems reviewed and no addt'l complaints, except as documented Cardiovascular Cardiovascular: Reports systems reviewed and no addt'l complaints, except as documented Respiratory/Chest Respiratory/Chest: Reports systems reviewed and no addt'l complaints, except as documented Gastrointestinal Gastrointestinal: Reports systems reviewed and no addt'l complaints, except as documented Genitourinary Genitourinary: Reports systems reviewed and no addt'l complaints, except as documented Musculoskeletal Musculoskeletal: Reports systems reviewed and no addt'l complaints, except as documented Integumentary Integumentary: Reports systems reviewed and no addt'l complaints, except as documented Neurologic Neurologic: Reports systems reviewed and no addt'l complaints, except as documented Psychiatric Psychiatric: Reports systems reviewed and no addt'l complaints, except as documented Endocrine Endocrinology: Reports systems reviewed and no addt'l complaints, except as documented Hematologic/Lymphatic Hematologic/Lymphatic: Reports systems reviewed and no addt'l complaints, except as documented Allergic/Immunologic Allergic/Immunologic: Reports systems reviewed and no addt'l complaints, except as documented Physical Exam Narrative Patient doing well without complaints. Tolerating PO. Ambulating and voiding without difficulty. Feeding well. Denies chest pain, shortness of breath, calf pain/swelling, fevers, chills, lightheadedness. Const alert, oriented x3, no apparent distress, average body habitus, no limitations, healthy appearing and well nourished General Appearance: cooperative and comfortable HEENT normocephalic, head/scalp atraumatic, hearing grossly normal bilaterally, external ears normal, EAC's normal, TM's normal bilaterally, external nose normal, nasal mucous membranes and turbinates normal, moist oral mucous membranes, oropharynx normal, dentition normal and gingiva normal Eyes PERRL, EOMs intact bilaterally, conjunctivae normal, no scleral icterus, no papilledema, normal visual owens by confrontation and fundi normal bilaterally Neck full ROM, nuchal rigidity, no lymphadenopathy, supple, no meningeal signs, no JVD, thyroid normal, nodes and no carotid bruits Resp normal respiratory effort, normal air movement, no retractions, no use of accessory muscles and clear to auscultation bilaterally Uterus Palpation: uterus fundus firm (Midline u/2, small amount of dark red lochia. ) and other OB Perineum well approximated, no ecchymosis, swelling noted on left side - enc'd to use ice pads. Extremity normal to inspection, full ROM, normal capillary refill, no joint enlargement, no clubbing, cyanosis or edema, no calf tenderness and no pedal edema Skin no rashes or lesions noted, no wounds, skin turgor normal, no jaundice, no petechiae and no mottling Neuro oriented x3, CN's II-XII intact bilaterally, moves all extremities, no focal motor deficits, no sensory deficits noted and gait normal Psych mental status grossly normal, thought process normal, cooperative, affect normal, speech normal, activity/motor behavior normal, denies hallucinations, denies homicidal ideation and denies suicidal ideation Assessment & Plan (1) Vaginal delivery: COMMENT: SM IOL IUGR girl Jailene 38 (2) Unknown varicella vaccination status: COMMENT: Pt has not had varicella, varicella titer- NON immune, unsure about vaccination, recommend avoidance and vaccination (3) : QUALIFIERS: Weeks of gestation: 37 weeks Qualified Code(s): Z 3A.37 - 37 weeks gestation of COMMENT: GBS neg, declined ntd mando and Carrier testing PLAN: Plan s/p PPD # 1 1. routine post delivery care/dc to home tomorrow 2. breast feeding- support given 3. rh positive 4. rubella immune
--- NOTE | 2024-12-03 10:13 | OB.TRI.PN ---
Progress Notes Laboratory Studies: Laboratory Tests 12/02/24 12/02/24 Range/Units 08:20 08:10 WBC 6.5 (4.4-11.0) K/mm3 RBC 3.91 L (4.2-5.4) M/mm3 Hgb 11.8 L (12.0-15.0) g/dL Hct 33.6 L (37-47) % MCV 85.9 (81-99) fL MCH 30.2 (27.0-32.0) pg MCHC 35.1 (32-36) g/dL RDW Std Deviation 38.3 (35.1-43.9) fl RDW Coeff of Haley 12.3 (11.6-14.6) % Plt Count 202 (150-450) K/mm3 MPV 10.1 (6.2-12.0) fl Immature Gran % (Auto) 0.800 (0.0-0.9) % Neut % (Auto) 68.3 (47-70) % Lymph % (Auto) 22.3 (19-41) % [place] % (Auto) 7.5 (0-10) % Eos % (Auto) 0.5 (0-5) % Baso % (Auto) 0.6 (0-1) % Absolute Neuts (auto) 4.5 (2.0-7.7) X10^3/uL Absolute Lymphs (auto) 1.46 (0.83-4.51) X10^3/uL Nucleated RBC % 0 (0-5) % Sodium 138 (133-145) mmol/L Potassium 3.5 (3.3-5.1) mmol/L Chloride 105 (98-108) mmol/L Carbon Dioxide 19.3 L (21.0-32.0) mmol/L Anion Gap 13 (5-15) BUN 10 (4-19) mg/dL Creatinine 0.71 (0.70-1.20) mg/dL Estim Creat Clear Calc 101.94 (50-250) ml/min Est GFR (MDRD) Non-Af 123 (>60) BUN/Creatinine Ratio 13.8 (10-20) RATIO Glucose 84 (70-99) mg/dL Calcium 9.1 (7.6-11.0) mg/dL Total Bilirubin 0.27 (0.00-1.30) mg/dL AST 21 (<=31) U/L ALT 11 (<=34) U/L Alkaline Phosphatase 145 H (35-104) U/L Total Protein 6.4 (5.9-8.4) g/dL Albumin 3.7 (3.5-5.0) g/dL Globulin 2.7 (2.2-4.2) g/dL Albumin/Globulin Ratio 1.4 (0.9-2.4) RATIO Blood Type O POSITIVE Antibody Screen NEGATIVE
[2024-12-03 12:35] VITALS: BP 111/68; PULSE 50; RESP 16; TEMP 36.7
[2024-12-03 15:47] VITALS: BP 111/72; RESP 16; TEMP 36.6
[2024-12-03 20:00] VITALS: BP 103/68; PULSE 60; RESP 16; TEMP 36.8; O2SAT 98
[2024-12-04 01:59] VITALS: BP 104/70; PULSE 82; RESP 16; TEMP 36.8; O2SAT 98
--- NOTE | 2024-12-04 08:33 | PCM.PN.CNM ---
Objective Data Objective Data Patient doing well without complaints. Tolerating PO. Ambulating and voiding without difficulty. Feeding well. Denies chest pain, shortness of breath, calf pain/swelling, fevers, chills, lightheadedness. Vital Signs: Vital Signs Temp Pulse Resp BP Pulse Ox O2 Del Method 98.2 F 82 16 104/70 98 Room Air 12/04/24 01:59 12/04/24 01:59 12/04/24 01:59 12/04/24 01:59 12/04/24 01:59 12/04/24 01:59 Oxygen Delivery Method Room Air Weight: 127 lb 8 oz Body Mass Index (BMI) 22.6 Intake & Output: Intake and Output for Last 24 Hours 12/02/24 12/03/24 12/04/24 23:59 23:59 23:59 Intake Total 3221.66 / 3221.66 Output Total 300 / 300 600 / 600 Balance 2921.66 / 2921.66 -600 / -600 Lab / Micro Data Attestation: I reviewed the patient's lab results. 12/02/24 08:10 12/02/24 08:10 ROS Constitutional Constitutional: Reports systems reviewed and no addt'l complaints, except as documented, as per HPI, anorexia, body ache(s), change in weight, chills, daytime sleepiness, difficulty sleeping, excessive sweating, fatigue, fever(s), frequent falls, headache(s), increased appetite, lethargy, malaise, night sweats, poor appetite, snoring, stops breathing during sleep, weakness, weight gain, weight loss and other Eyes Eyes: Reports systems reviewed and no addt'l complaints, except as documented ENT HEENT: Reports systems reviewed and no addt'l complaints, except as documented Cardiovascular Cardiovascular: Reports systems reviewed and no addt'l complaints, except as documented Respiratory/Chest Respiratory/Chest: Reports systems reviewed and no addt'l complaints, except as documented Gastrointestinal Gastrointestinal: Reports systems reviewed and no addt'l complaints, except as documented Genitourinary Genitourinary: Reports systems reviewed and no addt'l complaints, except as documented Musculoskeletal Musculoskeletal: Reports systems reviewed and no addt'l complaints, except as documented Integumentary Integumentary: Reports systems reviewed and no addt'l complaints, except as documented Neurologic Neurologic: Reports systems reviewed and no addt'l complaints, except as documented Psychiatric Psychiatric: Reports systems reviewed and no addt'l complaints, except as documented Endocrine Endocrinology: Reports systems reviewed and no addt'l complaints, except as documented Hematologic/Lymphatic Hematologic/Lymphatic: Reports systems reviewed and no addt'l complaints, except as documented Allergic/Immunologic Allergic/Immunologic: Reports systems reviewed and no addt'l complaints, except as documented Physical Exam Const alert, oriented x3, no apparent distress, average body habitus, no limitations, healthy appearing and well nourished General Appearance: cooperative, comfortable and well kempt HEENT normocephalic, head/scalp atraumatic and hearing grossly normal bilaterally Head and Scalp: normal to inspection and normocephalic Face and Sinus: normal facial exam Eyes General Eye: normal appearance of both eyes Chest Chest Narrative: Respirations eased & unlabored. Resp normal respiratory effort Uterus Palpation: uterus fundus firm (Midline, u/2, small amount of dark red lochia. No odor. Left labia slightly swollen, no ecchymosis (improved from previous day's exam). Enc'd to use ice packs & avoid directly sitting on bottom. ) Neuro oriented x3 Psych mental status grossly normal, thought process normal, cooperative and affect normal Appearance: grossly normal and appropriate Charges/Coding Multi Select Codes Urinary/Genital Urinary/Genital CPT Codes: No Charge Assessment & Plan (1) Vaginal delivery: COMMENT: SM IOL IUGR girl Jailene 38 (2) Encounter for induction of labor: (3) growth restriction: COMMENT: wkly BPP/MFM and NST. 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 Ped urology consult 1mo pp. May need antibiotics if obstructive uropathy occurs. Normal echo (6) Supervision of high-risk : QUALIFIERS: Trimester: third trimester Qualified Code(s): O09.93 - Supervision of high risk , unspecified, third trimester COMMENT: PRR , SHAREE 12/14/24, girl Jailene Bora PLAN: Plan s/p PPD # 2 1. routine post delivery care, d/c home today. 2. breast feeding- support given 3. rh positive 4. rubella immune 5. 1st degree laceration w/repair.
[2024-12-04 08:36] VITALS: BP 114/78; PULSE 80; RESP 16; TEMP 36.3
== END 2024-12-04 09:30 | disposition home or self-care (01) | DRG 807 ==
PROVIDERS: Admitting Provider Obstetrics & Gynecology; Visit Provider Obstetrics & Gynecology
DX: O36.5930 Maternal care for other known or suspected poor fetal growth, third trimester, not applicable or unspecified (principal); Z37.0 Single live birth; O35.EXX0 Maternal care for other (suspected) fetal abnormality and damage, fetal genitourinary anomalies, not applicable or unspecified; O43.123 Velamentous insertion of umbilical cord, third trimester; O70.0 First degree perineal laceration during delivery; Z3A.37 37 weeks gestation of pregnancy
CPT/HCPCS: 59025; 59050; 80048; 80053; 85025; 86850; 86900; 86901; 99221; G0378